=== PATIENT | male | born 1955 | race Caucasian/White ===

== ENCOUNTER 2024-03-13 00:34 | Emergency (ER) | payer MEDICARE, SELFPAY ==
--- NOTE | ~2024-03-13 | XR_ITS ---
EXAMINATION: XR foot RT min 3V DATE: 03/13/2024 00:58 INDICATION: Right foot injury. TECHNIQUE: 4 views of right foot were obtained. COMPARISON: None. FINDINGS: Alignment is normal. No fracture. There is mild osteoarthritis of first metatarsophalangeal joint and some of the interphalangeal joints and talonavicular joint. There are enthesophytes at the posterior and plantar aspects of calcaneal tuberosity. No radiopaque foreign body. IMPRESSION: 1. Mild polyarticular osteoarthritis. Reviewed, dictated and finalized at location A.
[2024-03-13 00:41] VITALS: PULSE 93; RESP 18; TEMP 36.1; O2SAT 100
--- NOTE | 2024-03-13 00:41 | ED.GENADULT ---
HPI - General Adult General Chief complaint: Extremity Injury, Lower Stated complaint: foot pain Time Seen by Provider: 03/13/24 00:41 Source: patient Mode of arrival: ambulatory Limitations: no limitations History of Present Illness HPI narrative: patient was in his garage did dropped a knife on the top of his right foot 5 or 6 days ago. And then he went to see his doctor in [facility] 2 days later got put on antibiotic with 500 mg 3 times a day but does not remember the name of the antibiotic. Patient said he has been eating and drinking fine without any fever cough runny nose sore throat pain elsewhere or other swelling elsewhere. He denies any other bleeding or bruising problems walking talking seeing or hearing or any other complaints. Related Data Allergies Allergy/AdvReac Type Severity Reaction Status Date / Time buspirone [From BuSpar] Allergy Unknown Verified 03/13/24 01:07 Review of Systems Review of Systems: All systems reviewed & are unremarkable except as noted in HPI and below Exam Narrative: White male patient with no apparent distress.? Head normocephalic, atraumatic.? Eyes conjunctiva pink sclera nonicteric.? Extraocular movements are intact.? Ears externally normal.? Oropharynx is clear with moist mucous membranes without exudates.? Neck is supple nontender no lymphadenopathy.? Back is nontender.? Lungs are clear.? Heart is regular rate and rhythm without murmurs gallops or rubs.? Chest wall nontender. Abdomen is soft and nontender no hepatosplenomegaly or masses no CVA tenderness no abdominal bruits.? Extremities : Right foot has a well-healed scab over the dorsum aspect of his foot overlying the metatarsal area 4th or 5th with the erythema surrounding the scab mild tenderness and mild swelling. He has full range of motion of his foot and ankle. DP and PT pulses are +2 bilaterally.? Skin is warm and dry without rashes or lesions.? Neurological patient is alert and oriented x4.? Motor and sensory grossly intact.? Gait is normal. Course Vital Signs Vital signs: Vital Signs Temperature 36.1 C L 03/13/24 00:41 Pulse Rate 93 03/13/24 00:41 Respiratory Rate 18 03/13/24 00:41 Pulse Oximetry 100 03/13/24 00:41 Oxygen Delivery Room Air 03/13/24 00:41 Temperature 36.1 C L 03/13/24 00:41 Pulse Rate 65 03/13/24 03:32 Respiratory Rate 18 03/13/24 03:32 Blood Pressure 98/62 L 03/13/24 03:32 Pulse Oximetry 100 03/13/24 03:32 Oxygen Delivery Room Air 03/13/24 03:32 Medical Decision Making MDM Narrative Medical decision making narrative: Patient was placed in Room # Six History and physical was performed. X-ray per radiologist showed no fracture mild soft tissue swelling over the metatarsals Independent Historian: patient External Source Review: Differential Dx includes but not limited to: cellulitis abscess infection the bone osteomyelitis Medications were Reviewed: patient is poor historian can not remember the name of the antibiotic he is taking Independently Interpreted by me: Meds, treatment, ED course: Rocephin 1 g IM Social Situation Impacting Patients Care: Shared decision Making: evaluation was discussed all questions were asked and answered patient agreed with the plan. You be started on Levaquin 500 daily for the next 7 days and continue his other antibiotic and follow up with his primary care provider on Friday in 2 days for recheck. dist a office foot until he sees keep it elevated. DISCHARGE DIAGNOSIS: Cellulitis right foot DISPOSITION: discharge home CONDITION AT DISCHARGE: stable Vital Signs Vital Signs: Vital Signs Temperature 36.1 C L 03/13/24 00:41 Pulse Rate 93 03/13/24 00:41 Respiratory Rate 18 03/13/24 00:41 Pulse Oximetry 100 03/13/24 00:41 Oxygen Delivery Room Air 03/13/24 00:41 Temperature 36.1 C L 03/13/24 00:41 Pulse Rate 65 03/13/24 03:32 Respiratory Rate 1
[2024-03-13 00:52] VITALS: BP 124/111
[2024-03-13] MEDS: cefTRIAXone 1 GM, LIDOCAINE HCL 1% LOCAL INJ 2.1 ML IM (02:39)
[2024-03-13 03:32] VITALS: BP 98/62; PULSE 65; RESP 18; O2SAT 100
== END 2024-03-13 03:04 | disposition home or self-care (01) ==
PROVIDERS: Emergency Provider Emergency Medicine
DX: L03.115 Cellulitis of right lower limb (principal)
CPT/HCPCS: 73630; 96372; 99283; J0696; J2003

== ENCOUNTER 2024-04-17 17:54 | Emergency (ER) | payer MEDICARE, SELFPAY ==
[2024-04-17 17:54] VITALS: BP 152/108; PULSE 92; RESP 18; TEMP 35.6; O2SAT 96
--- NOTE | 2024-04-17 18:13 | ED.SKABFB ---
HPI - Skin/Abscess/Foreign Bdy General Chief complaint: Skin/Abscess/Foreign Body Stated complaint: facial rash Source: patient Mode of arrival: ambulatory Limitations: no limitations History of Present Illness HPI narrative: this is a 68-year-old male with a history of heart disease and coronary artery disease recently discharged from the hospital for TIA and is currently on blood thinners, developed a vesicular rash on erythematous base on the left side of his lower face not involving the the left eye, mainly in the left nasal labial fold. Does have a headache with some no fever chills no nausea vomiting no chest pain no shortness of breath. complaint: rash Onset (ago): day(s) Location: face Severity: moderate Severity scale (1-10): 8 Related Data Home Medications Medication Instructions Recorded Confirmed atorvastatin 10 mg tablet 10 mg PO DAILY 04/17/24 04/17/24 clopidogrel 75 mg tablet 75 mg PO DAILY 04/17/24 04/17/24 Allergies Allergy/AdvReac Type Severity Reaction Status Date / Time buspirone [From BuSpar] Allergy Unknown Verified 04/17/24 18:02 Review of Systems Review of Systems: All systems reviewed & are unremarkable except as noted in HPI and below PMFSH Past Medical History Medical History CAD (coronary artery disease) TIA (transient ischemic attack) Exam Const: General: healthy appearing Nutritional Appearance: well nourished Orientation/consciousness: patient oriented x3 Limitations: no limitations HENMT: Head: normal to inspection Eyes: Conjunctivae: conjunctivae normal Pupils: Equal, round and reactive pupils present EOM: EOMs intact bilaterally Direct Ophthalmoscopy: no photophobia Neck: Neck: normal visual inspection, no lymphadenopathy and no meningeal signs Chest: Chest palpation & inspection: normal inspection of the chest Resp: Effort & Inspection: normal respiratory effort Auscultation: clear to auscultation bilaterally Cardio: Rate: regular rate GI: Auscultation: normal bowel sounds Skin: Other: erythematous rash with vesicles on the left nasal labial fold Neuro: General: patient oriented x3 and moves all extremities Course Course Emergency Course: patient received a dose of 400mg acyclovir will send prescriptions to patient's local pharmacy advised follow-up with his primary care physician. Vital Signs Vital signs: Vital Signs Temperature 35.6 C L 04/17/24 17:54 Pulse Rate 92 04/17/24 17:54 Respiratory Rate 18 04/17/24 17:54 Blood Pressure 152/108 H 04/17/24 17:54 Pulse Oximetry 96 04/17/24 17:54 Oxygen Delivery Room Air 04/17/24 17:54 Temperature 35.6 C L 04/17/24 17:54 Pulse Rate 92 04/17/24 17:54 Respiratory Rate 18 04/17/24 17:54 Blood Pressure 152/108 H 04/17/24 17:54 Pulse Oximetry 96 04/17/24 17:54 Oxygen Delivery Room Air 04/17/24 17:54 Critical Care Time Critical Care Time Critical Care Time: No Discharge Plan Discharge Clinical Impression: Herpes zoster Patient Disposition: Home, Self-Care Condition: Stable Instructions: Antibiotic Form, Shingles (ED) Additional Instructions: Advised patient to take medication as prescribed and follow up primary within 1 week further evaluation and treatment. Prescriptions: New acyclovir 800 mg tablet 800 mg PO QID 7 Days Qty: 28 0RF oxycodone-acetaminophen [Percocet] 5-325 mg tablet 1 tablet PO Q6H PRN (Reason: pain) Qty: 14 0RF No Action atorvastatin 10 mg tablet 10 mg PO DAILY clopidogrel 75 mg tablet 75 mg PO DAILY Follow-up/Referrals: UNKNOWN,DOCTOR [Primary Care Provider] - Time of Disposition: 18:18
[2024-04-17] MEDS: ACYCLOVIR 200 MG CAPSULE 400 MG PO (18:14)
== END 2024-04-17 18:20 | disposition home or self-care (01) ==
PROVIDERS: Emergency Provider Emergency Medicine
DX: B02.9 Zoster without complications (principal); I25.10 Atherosclerotic heart disease of native coronary artery without angina pectoris; Z86.73 Personal history of transient ischemic attack (TIA), and cerebral infarction without residual deficits
CPT/HCPCS: 99283; A9270

== ENCOUNTER 2024-04-21 23:06 | Emergency (ER) | payer MEDICARE, SELFPAY ==
[2024-04-21 23:11] VITALS: BP 131/104; PULSE 78; RESP 18; TEMP 36.2; O2SAT 95
--- NOTE | 2024-04-21 23:11 | ED.GIBLEED ---
HPI - GI Bleed General Chief complaint: GI Bleed Stated complaint: bleeding from rectum Time Seen by Provider: 04/21/24 23:09 Source: patient Mode of arrival: ambulatory Limitations: no limitations History of Present Illness HPI Narrative: 68-year-old male with a history of CAD( recent negative cardiac catheterization on two different occasions), CVA with TIA, status post loop recorder, dyslipidemia, gout, BPH, negative colonoscopy a few years ago presents to the ED with a few weeks history of -- bright red blood per rectum. The patient had been taken aspirin and Plavix which he discontinued a few weeks ago. no prior history of GI bleed -- brown liquid stools off and on no nausea or vomiting. No hematemesis or melena. No abdominal pain. recent herpes eruptions on the face which were diagnosed as zoster for which he is on acyclovir. MD complaint: blood on toilet paper Onset (ago): week(s) Relieving factors: none Exacerbating factors: none Associated symptoms: denies other symptoms and other ( loose stools) Treatments Prior to Arrival: none Related Data Home Medications Medication Instructions Recorded Confirmed atorvastatin 10 mg tablet (Lipitor) 10 mg PO DAILY 04/17/24 04/22/24 clopidogrel 75 mg tablet (Plavix) 75 mg PO DAILY 04/17/24 04/22/24 Men's One Daily 1 tablet PO DAILY 04/22/24 04/22/24 Vitamin B-12 500 mg PO DAILY 04/22/24 04/22/24 allopurinol 300 mg tablet 300 mg PO EVERY OTHER DAY 04/22/24 04/22/24 aspirin 81 mg tablet,delayed 81 mg PO DAILY 04/22/24 04/22/24 release brimonidine 0.2 % eye drops 1 drp EACH EYE DAILY 04/22/24 04/22/24 gabapentin 300 mg capsule 300 mg PO BID 04/22/24 04/22/24 (Neurontin) gabapentin 300 mg capsule 600 mg PO HS 04/22/24 04/22/24 (Neurontin) lisinopril 40 mg tablet 40 mg PO DAILY 04/22/24 04/22/24 magnesium 250 mg tablet 250 mg PO DAILY 04/22/24 04/22/24 potassium 99 mg PO DAILY 04/22/24 04/22/24 prazosin 1 mg capsule 1 mg PO HS 04/22/24 04/22/24 prazosin 2 mg capsule 2 mg PO HS 04/22/24 04/22/24 tamsulosin 0.4 mg capsule 0.4 mg PO DAILY 04/22/24 04/22/24 timolol maleate 0.25 % eye drops 1 drp EACH EYE DAILY 04/22/24 04/22/24 Allergies Allergy/AdvReac Type Severity Reaction Status Date / Time buspirone [From BuSpar] Allergy Unknown Verified 04/21/24 23:57 terbinafine [From Lamisil] Allergy Swelling Verified 04/21/24 23:57 Review of Systems Review of Systems: All systems reviewed & are unremarkable except as noted in HPI and below Constitutional: Constitutional: Reports as per HPI and Reports no additional constitutional complaints Eyes: Eyes: Reports as per HPI and Reports no additional eye complaints ENT: Reports system reviewed and no additional complaints, except as documented and Reports as per HPI Cardiovascular: Cardiovascular: Reports as per HPI and Reports no additional cardiovascular complaints Respiratory: Respiratory: Reports as per HPI and Reports no additional respiratory complaints Gastrointestinal: Gastrointestinal: Reports as per HPI and Reports no additional gastrointestinal complaints Comments: bright red blood per rectum. blood is present on the wipes. Genitourinary: Genitourinary: Reports no additional male genitourinary complaints Musculoskeletal: Musculoskeletal: Reports no additional musculoskeletal complaints and Reports as per HPI Integumentary/Breasts: Skin/Breast: Reports system reviewed and no additional complaints, except as docu and Reports as per HPI Neurologic: Reports system reviewed and no additional complaints, except as documented and Reports as per HPI Psychiatric: Psychiatric: Reports no additional psychiatric complaints and Reports as per HPI Endocrine: Endocrine: Reports no additional endocrine complaints and Reports as per HPI Hematologic/Lymphatic: Hematologic/Lymphatic: Reports no additional hematologic/lymphatic complaints and Reports as per HPI Allergic/Immunologic: Allergic/Immunologic: Reports no additional allergic/immunologic complaints and Reports as per HPI PMFSH Past Medical History Medical History CAD (coronary artery disease) TIA (transient ischemic attack) Social History Social History (Updated 04/21/24 @ 23:52 by Amor Barragan MD) Social History: Light smoker. No history of alcohol use. Exam Narrative: Blood pressure 131/104. Const: General: no acute distress Nutritional Appearance: well nourished Orientation/consciousness: patient oriented x3 Limitations: no limitations HENMT: Head: normal to inspection Ears: external ears normal Face/Nose/Sinus: Normal external nose present Mouth: Yes Normal oral and palatal mucosa present Throat: posterior oropharynx normal Eyes: Conjunctivae: conjunctivae normal Pupils: Equal, round and reactive pupils present EOM: EOMs intact bilaterally Direct Ophthalmoscopy: no photophobia Neck: Neck: normal visual inspection and no lymphadenopathy Chest: Chest palpation & inspection: normal inspection of the chest Resp: Effort & Inspection: normal respiratory effort Auscultation: clear to auscultation bilaterally Cardio: Rate: regular rate Rhythm: regular rhythm GI: GI Palp: Yes Soft to palpation Auscultation: normal bowel sounds Rectal Exam: normal sphincter tone and hemorrhoids Other: No tenderness/ rigidity / rebound. : General: Yes no CVA tenderness Back/Spine/Pelvis: Back: no CVA tenderness Skin: General skin exam: normal color Neuro: General: patient oriented x3, moves all extremities, no meningeal signs, no focal motor deficits and CN's II-XI intact bilaterally Cranial nerves: Yes Nystagmus not present Speech: normal speech Extrem: General: normal to inspection Psych: Mental Status: mental status grossly normal Affect: normal affect Attitude: cooperative Course Course Emergency Course: Bright red blood per rectum-- patient has an H&H of 14.5/41.7. Platelet count is 148 1000. Patient is noted to have a normal PT PTT. Patient is not on any antithrombotics on anticoagulants. He had been on aspirin and Plavix which have been discontinued. Patient is noted to have external hemorrhoids and these appear to be the source of bleeding. He had a colonoscopy few years ago which did not show any evidence of malignancy as per patient Vital Signs Vital signs: Vital Signs Temperature 36.2 C L 04/21/24 23:11 Pulse Rate 78 04/21/24 23:11 Respiratory Rate 18 04/21/24 23:11 Blood Pressure 131/104 H 04/21/24 23:11 Pulse Oximetry 95 04/21/24 23:11 Oxygen Delivery Room Air 04/21/24 23:11 Temperature 36.2 C L 04/21/24 23:11 Pulse Rate 78 04/21/24 23:11 Respiratory Rate 18 04/21/24 23:11 Blood Pressure 131/104 H 04/21/24 23:11 Pulse Oximetry 95 11/20/24 23:11 Oxygen Delivery Room Air 04/21/24 23:11 MDM - GI Bleed MDM Narrative Medical decision making narrative: bleeding per rectum hemorrhoids Differential Diagnosis Differential diagnosis: Likely hemorrhoids and anal fissure Medical Records Attestation: I reviewed the patient's medical records. Lab Data Attestation: I reviewed the patient's lab results. 04/22/24 00:04 04/22/24 00:04 Labs: Lab Results 04/22/24 Range/Units 00:04 WBC 6.6 (4.8-10.8) K/mm3 RBC 4.48 L (4.70-6.10) M/mm3 Hgb 14.5 (12.4-15.3) g/dL Hct 41.7 (37.0-46.0) % MCV 93.1 (78.0-102.0) fL MCH 32.4 H (27.0-31.0) pg MCHC 34.8 (32-36) g/dL RDW 11.8 (11.6-14.4) % Plt Count 148 L (150-420) K/mm3 MPV 9.5 (8.7-11.0) fl Immature Gran % (Auto) 0.3 H (0.0-0.0) % Neut % (Auto) 63.2 (50.0-70.0) % Lymph % (Auto) 24.2 (18.0-42.0) % [place] % (Auto) 8.5 (2.0-11.0) % Eos % (Auto) 3.0 (1.0-6.0) % Baso % (Auto) 0.8 (0.0-1.0) % Lymph # (Auto) 1.59 (1.10-4.50) K/mm3 [place] # (Auto) 0.56 (0.10-0.90) K/mm3 Eos # (Auto) 0.20 (0.02-0.50) K/mm3 Baso # (Auto) 0.05 (0.00-0.10) K/mm3 Abs Immat Gran (auto) 0.02 H (0.00-0.00) K/mm3 Absolute Neuts (auto) 4.15 (1.70-7.20) K/mm3 Absolute Nucleated RBC 0.00 (0.00-0.00) K/mm3 Nucleated RBC % 0.0 (0-0.0) % % Immature Plt Fraction 2.2 (1.0-7.0) % PT 11.0 (9.50-12.1) Seconds INR 1.0 APTT 29.1 (23.9-30.70) Sec Sodium 142 (136-145) mmol/L Potassium 4.1 (3.5-5.1) mmol/L Chloride 103 (98-108) mmol/L Carbon Dioxide 30 (21-32) mmol/L Anion Gap 9 (4-12) mmol/L BUN 20 H (7-18) mg/dL Creatinine 0.95 (0.70-1.30) mg/dL Estim Creat Clear Calc Not Reportable Estimated GFR > 60 (59 - ) Glucose 102 H (70-99) mg/dL Calculated Osmolality 296 H (285-295) mOsm/kg Lactic Acid 0.5 (0.4-2.0) mmol/L Calcium 9.1 (8.5-10.1) mg/dL Total Bilirubin 0.4 (0.00-1.00) mg/dL AST 20 (15-37) U/L ALT 37 (16-63) U/L Alkaline Phosphatase 82 (46-116) U/L Troponin I 6.4 (0.00-60.4) ng/L NT-Pro-B Natriuret Pep 57 (0-125) pg/mL Total Protein 6.9 (6.4-8.2) g/dL Albumin 3.7 (3.4-5.0) g/dL Lipase 33 (16-77) U/L Discharge Plan Discharge Clinical Impression: Bright red rectal bleeding Hemorrhoids Qualifiers: Hemorrhoid type: third degree Qualified Code(s): K64.2 - Third degree hemorrhoids Patient Disposition: Home, Self-Care Condition: Stable Instructions: Antibiotic Form, Hemorrhoids (DC) Patient Language: Korean Prescriptions: No Action atorvastatin [Lipitor] 10 mg tablet 10 mg PO DAILY clopidogrel [Plavix] 75 mg tablet 75 mg PO DAILY acyclovir 800 mg tablet 800 mg PO QID 7 Days Qty: 28 0RF oxycodone-acetaminophen [Percocet] 5-325 mg tablet 1 tablet PO Q6H PRN (Reason: pain) Qty: 14 0RF prazosin 1 mg capsule 1 mg PO HS aspirin [Adult Aspirin EC Low Strength] 81 mg Tablet,Delayed Release (Dr/Ec) 81 mg PO DAILY tamsulosin 0.4 mg capsule 0.4 mg PO DAILY timolol maleate 0.25 % drops 1 drp EACH EYE DAILY brimonidine 0.2 % drops 1 drp EACH EYE DAILY gabapentin [Neurontin] 300 mg capsule 600 mg PO HS gabapentin [Neurontin] 300 mg capsule 300 mg PO BID Rx Instructions: take one capsule in the morning and one at noon allopurinol 300 mg tablet 300 mg PO EVERY OTHER DAY magnesium 250 mg Tablet 250 mg PO DAILY lisinopril 40 mg tablet 40 mg PO DAILY prazosin 2 mg capsule 2 mg PO HS Men's One Daily 1 tablet PO DAILY Vitamin B-12 500 mg PO DAILY potassium capsule 99 mg PO DAILY Follow-up/Referrals: UNKNOWN,DOCTOR [Primary Care Provider] - Time of Disposition: 00:35
--- NOTE | 2024-04-21 23:40 | PC.NURSE ---
patient resting on stretcher with visitor at bedside. offered warm blanket however patient declined. RN monitoring. call light within reach.
[2024-04-22 00:09] LABS: Basophils Absolute Auto 0.05 K/mm3 (0.00-0.10); Basophils Percent Auto 0.8 % (0.0-1.0); Hematocrit 41.7 % (37.0-46.0); Hemoglobin 14.5 g/dL (12.4-15.3); Immature Granulocyte Absolute 0.02 K/mm3 (0.00-0.00); Immature Granulocyte Percent A 0.3 % (0.0-0.0); Immature Platelet Fraction Pct 2.2 % (1.0-7.0); Lymphocytes Absolute Auto 1.59 K/mm3 (1.10-4.50); Lymphocytes Percent Auto 24.2 % (18.0-42.0); Mean Corpuscular HGB Conc 34.8 g/dL (32-36); Mean Corpuscular Hemoglobin 32.4 pg (27.0-31.0); Mean Corpuscular Volume 93.1 fL (78.0-102.0); Mean Platelet Volume 9.5 fl (8.7-11.0); Monocytes Absolute Auto 0.56 K/mm3 (0.10-0.90); Monocytes Percent Auto 8.5 % (2.0-11.0); Neutrophils Absolute Auto 4.15 K/mm3 (1.70-7.20); Neutrophils Percent Auto 63.2 % (50.0-70.0); Platelet Count Result 148 K/mm3 (150-420); Red Blood Count 4.48 M/mm3 (4.70-6.10); Red Cell Distribution Width 11.8 % (11.6-14.4); White Blood Count 6.6 K/mm3 (4.8-10.8)
[2024-04-22 00:20] LABS: Partial Thromboplastin Time 29.1 Sec (23.9-30.70)
[2024-04-22 00:23] LABS: Lactic Acid Reflex 0.5 mmol/L (0.4-2.0)
[2024-04-22 00:27] LABS: Alanine Aminotransferase 37 U/L (16-63); Albumin Level 3.7 g/dL (3.4-5.0); Alkaline Phosphatase 82 U/L (46-116); Anion Gap 9 mmol/L (4-12); Aspartate Amino Transferase 20 U/L (15-37); Bilirubin,Total 0.4 mg/dL (0.00-1.00); Blood Urea Nitrogen 20 mg/dL (7-18); Calcium 9.1 mg/dL (8.5-10.1); Carbon Dioxide 30 mmol/L (21-32); Chloride 103 mmol/L (98-108); Estimated Glomerular Filt Rate > 60; Glucose 102 mg/dL (70-99); Lipase 33 U/L (16-77); NT Pro B Type Natriuretic Pept 57 pg/mL (0-125); Osmolality Calculated 296 mOsm/kg (285-295); Potassium 4.1 mmol/L (3.5-5.1); Sodium 142 mmol/L (136-145); Total Protein 6.9 g/dL (6.4-8.2); Troponin I 6.4 ng/L (0.00-60.4)
--- NOTE | 2024-04-22 00:51 | PC.NURSE ---
SUPPLIES GIVEN TO COLLECT STOOL SAMPLE AT HOME
[2024-04-22 00:55] VITALS: TEMP 35.9
[2024-04-22 00:56] VITALS: BP 125/88; PULSE 64; RESP 18; O2SAT 96
== END 2024-04-22 00:56 | disposition home or self-care (01) ==
PROVIDERS: Emergency Provider Internal Medicine Critical Care Medicine
DX: K64.2 Third degree hemorrhoids (principal); I25.10 Atherosclerotic heart disease of native coronary artery without angina pectoris; F17.200 Nicotine dependence, unspecified, uncomplicated; Z86.73 Personal history of transient ischemic attack (TIA), and cerebral infarction without residual deficits; E78.5 Hyperlipidemia, unspecified; Z79.01 Long term (current) use of anticoagulants; Z79.899 Other long term (current) drug therapy; Z79.82 Long term (current) use of aspirin
CPT/HCPCS: 36415; 80053; 83605; 83690; 83880; 84484; 85025; 85055; 85610; 85730; 99284

== ENCOUNTER 2024-04-23 17:18 | Emergency (ER) | payer MEDICARE, SELFPAY ==
--- NOTE | ~2024-04-23 | CT_ITS ---
EXAMINATION: CT abdomen pelvis w con DATE: 04/23/2024 18:45 INDICATION: Left lower quadrant abdominal pain. TECHNIQUE: Computed tomography (CT) of the abdomen and pelvis was performed with 100 mL Omnipaque 350 intravenous contrast. Automated exposure control and iterative reconstruction technique were employe d. The dose-length product was 977.76 mGy-cm. COMPARISON: None. FINDINGS: The visualized portions of the lung bases are clear without pneumonia or pleural effusion. The heart size is normal. No pericardial effusion. There are coronary artery calcifications. The live r, gallbladder, spleen, pancreas, and adrenal glands and kidneys are normal. There are scattered dive rticula in the colon. There is fat stranding around a diverticulum of the descending colon with wall thickening, consistent with diverticulitis. There are no dilated loops of bowel. The appendix is norm al. There are no pathologically enlarged lymph nodes. There is no free intraperitoneal fluid. There i s severe lumbar spondylosis. IMPRESSION: 1. Acute diverticulitis of descending colon. No perforation or abscess. Reviewed, dictated and finalized at location A. [employer]
[2024-04-23 17:19] VITALS: BP 177/96; PULSE 87; RESP 20; TEMP 36.6; O2SAT 99
--- NOTE | 2024-04-23 17:28 | ED_ITS ---
HPI - General Adult General Chief complaint: Abdominal Pain Stated complaint: left side ab. pain Time Seen by Provider: 04/23/24 17:27 Source: patient and family Mode of arrival: ambulatory Limitations: no limitations History of Present Illness HPI narrative: 68-year-old white male with history of diverticulitis 5 years ago complains of 2 days of left lower quadrant pain that is worse than it was 2 days ago better when he lays still worse when he is walking around it was a 10/10. Now it is a 7/10 since he is lying still. He has had some diarrhea 1 or 2 stools in last 24 hours he is seen here 2 days ago with hemorrhoids and rectal bleeding on blood thinners was told to stop those which he did. Since then he has not seen any blood in his stool. Denies any constipation. He says the left lower quadrant pain is stabbing and burning denies any nausea or vomiting or any other pain shortness of breath cough fever rash or itching dizziness or lightheadedness weakness or numbness. 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 Denies any muscle aches numbness or weakness other bleeding or bruising fever problems voiding eating or drinking denies any chest pain cough fever sore throat runny nose or any other complaints. Related Data Home Medications Medication Instructions Recorded Confirmed atorvastatin 10 mg tablet (Lipitor) 10 mg PO DAILY 04/17/24 04/23/24 clopidogrel 75 mg tablet (Plavix) 75 mg PO DAILY 04/17/24 04/23/24 Men's One Daily 1 tablet PO DAILY 04/22/24 04/23/24 Vitamin B-12 500 mg PO DAILY 04/22/24 04/23/24 allopurinol 300 mg tablet 300 mg PO EVERY OTHER DAY 04/22/24 04/23/24 aspirin 81 mg tablet,delayed 81 mg PO DAILY 04/22/24 04/23/24 release brimonidine 0.2 % eye drops 1 drp EACH EYE DAILY 04/22/24 04/23/24 gabapentin 300 mg capsule 300 mg PO BID 04/22/24 04/23/24 (Neurontin) gabapentin 300 mg capsule 600 mg PO HS 04/22/24 04/23/24 (Neurontin) lisinopril 40 mg tablet 40 mg PO DAILY 04/22/24 04/23/24 magnesium 250 mg tablet 250 mg PO DAILY 04/22/24 04/23/24 potassium 99 mg PO DAILY 04/22/24 04/23/24 prazosin 1 mg capsule 1 mg PO HS 04/22/24 04/23/24 prazosin 2 mg capsule 2 mg PO HS 04/22/24 04/23/24 tamsulosin 0.4 mg capsule 0.4 mg PO DAILY 04/22/24 04/23/24 timolol maleate 0.25 % eye drops 1 drp EACH EYE DAILY 04/22/24 04/23/24 Allergies Allergy/AdvReac Type Severity Reaction Status Date / Time buspirone [From BuSpar] Allergy Unknown Verified 04/21/24 23:57 poison sumac extract Allergy Hives Verified 04/23/24 17:49 terbinafine [From Lamisil] Allergy Swelling Verified 04/21/24 23:57 Review of Systems Review of Systems: All systems reviewed & are unremarkable except as noted in HPI and below PMFSH Past Medical History Medical History CAD (coronary artery disease) TIA (transient ischemic attack) Social History Social History Social History: Light smoker. No history of alcohol use. Comments History of diverticulitis 5 years ago Exam Narrative: White male patient with mild apparent distress.? Head normocephalic, atraumatic.? Eyes conjunctiva pink sclera nonicteric.? Extraocular movements are intact.? Ears externally normal.? Oropharynx is clear with moist mucous membranes without exudates.? Neck is supple nontender no lymphadenopathy.? Back is nontender.? no CVA tenderness. Lungs are clear.? Heart is regular rate and rhythm without murmurs gallops or rubs.? Chest wall nontender. Abdomen is soft with positive bowel sounds. He has guarding in the left lower quadrant with mild rebound and mild tenderness without any masses or hepatosplenomegaly or abdominal bruits.? Extremities no cyanosis clubbing or edema.? Skin is warm and dry without rashes or lesions.? Neurological patient is alert and oriented x4.? Motor and sensory grossly intact.? Gait is normal. Course Vital Signs Vital signs: Vital Signs Temperature 36.6 C 04/23/24 17:19 Pulse Rate 87 04/23/24 17:19 Respiratory Rate 20 04/23/24 17:19 Blood Pressure 177/96 H 04/23/24 17:19 Pulse Oximetry 99 04/23/24 17:19 Oxygen Delivery Room Air 04/23/24 17:19 Temperature 36.6 C 04/23/24 17:19 Pulse Rate 87 04/23/24 17:19 Respiratory Rate 20 04/23/24 17:19 Blood Pressure 177/96 H 04/23/24 17:19 Pulse Oximetry 99 04/23/24 17:19 Oxygen Delivery Room Air 04/23/24 17:19 Medical Decision Making MDM Narrative Medical decision making narrative: ?Patient placed in room: 1 with his ? History and physical was performed. Independent Historian: External Source Review: ED visits from this week were reviewed Differential Dx includes but not limited to: diverticulitis bowel obstruction inflammatory bowel disease electrolyte imbalance anemia urinary tract infection Medications were Reviewed: home meds reviewed Medications given: normal saline 1 L given. Patient refused morphine and Zofran. he was given Bactrim DS p.o. Independently Interpreted by me: Labs independently interpreted by me Shared decision Making: evaluation was discussed with patient all questions were asked and answered patient agreed with plan. He would take Bactrim DS twice a day for 7 days follow up with his primary care provider. Return if you get worse or develops any new symptoms increase his fluids by mouth take Tylenol and/or ibuprofen as needed for pain. Social Situation Impacting Patients Care: DISCHARGE DIAGNOSIS: Acute uncomplicated diverticulitis DISPOSITION : discharge home CONDITION AT DISCHARGE: stable Vital Signs Vital Signs: Vital Signs Temperature 36.6 C 04/23/24 17:19 Pulse Rate 87 04/23/24 17:19 Respiratory Rate 20 04/23/24 17:19 Blood Pressure 177/96 H 04/23/24 17:19 Pulse Oximetry 99 04/23/24 17:19 Oxygen Delivery Room Air 04/23/24 17:19 Temperature 36.6 C 04/23/24 17:19 Pulse Rate 87 04/23/24 17:19 Respiratory Rate 20 04/23/24 17:19 Blood Pressure 177/96 H 04/23/24 17:19 Pulse Oximetry 99 04/23/24 17:19 Oxygen Delivery Room Air 04/23/24 17:19 Lab Data 04/23/24 18:30 04/23/24 18:30 Labs: Lab Results 04/23/24 04/23/24 Range/Units 18:30 18:35 WBC 11.6 H (4.8-10.8) K/mm3 RBC 4.64 L (4.70-6.10) M/mm3 Hgb 15.2 (12.4-15.3) g/dL Hct 43.5 (37.0-46.0) % MCV 93.8 (78.0-102.0) fL MCH 32.8 H (27.0-31.0) pg MCHC 34.9 (32-36) g/dL RDW 12.1 (11.6-14.4) % Plt Count 166 (150-420) K/mm3 MPV 9.4 (8.7-11.0) fl Immature Gran % (Auto) 0.4 H (0.0-0.0) % Neut % (Auto) 77.0 H (50.0-70.0) % Lymph % (Auto) 12.2 L (18.0-42.0) % [place] % (Auto) 8.3 (2.0-11.0) % Eos % (Auto) 1.7 (1.0-6.0) % Baso % (Auto) 0.4 (0.0-1.0) % Lymph # (Auto) 1.41 (1.10-4.50) K/mm3 [place] # (Auto) 0.96 H (0.10-0.90) K/mm3 Eos # (Auto) 0.20 (0.02-0.50) K/mm3 Baso # (Auto) 0.05 (0.00-0.10) K/mm3 Abs Immat Gran (auto) 0.05 H (0.00-0.00) K/mm3 Absolute Neuts (auto) 8.91 H (1.70-7.20) K/mm3 Absolute Nucleated RBC 0.00 (0.00-0.00) K/mm3 Nucleated RBC % 0.0 (0-0.0) % Sodium 140 (136-145) mmol/L Potassium 4.4 (3.5-5.1) mmol/L Chloride 101 (98-108) mmol/L Carbon Dioxide 32 (21-32) mmol/L Anion Gap 7 (4-12) mmol/L BUN 18 (7-18) mg/dL Creatinine 0.96 (0.70-1.30) mg/dL Estim Creat Clear Calc 81 ml/min Estimated GFR > 60 (59 - ) Glucose 92 (70-99) mg/dL Calculated Osmolality 291 (285-295) mOsm/kg Lactic Acid 0.8 (0.4-2.0) mmol/L Calcium 9.3 (8.5-10.1) mg/dL Total Bilirubin 0.6 (0.00-1.00) mg/dL AST 14 L (15-37) U/L ALT 36 (16-63) U/L Alkaline Phosphatase 91 (46-116) U/L Total Protein 7.4 (6.4-8.2) g/dL Albumin 3.9 (3.4-5.0) g/dL Lipase 31 (16-77) U/L Urine Color Yellow (Yellow) Urine Appearance Clear (Clear) Urine pH 6.0 (5.0-8.0) Ur Specific [place] 1.025 H (1.010-1.020) Urine Protein Negative (Negative) Urine Glucose (UA) Negative (Negative) Urine Ketones Trace H (Negative) Ur Blood (Man) Negative (Negative) Urine Nitrate Negative (Negative) Urine Bilirubin Negative (Negative) Urine Urobilinogen 0.2 (0.2-1.0) mg/dL Leukocyte Esterase Rfl Negative (Negative) TOMER/UL Discharge Plan Discharge Clinical Impression: Acute diverticulitis Patient Disposition: Home, Self-Care Condition: Stable Instructions: Antibiotic Form, Diverticulitis (ED) Additional Instructions: Bactrim ds twice a day for 7 days. Tylenol 500 m tablets 4 times a day as needed for pain and/or ibuprofen 200 m or 3 tablets 3 times a day as needed. Follow-up with your primary care provider next week. Return if you get worse or develops any new symptoms. Prescriptions: New sulfamethoxazole-trimethoprim [Bactrim DS] 800-160 mg tablet 1 tablet PO Q12H 7 Days Qty: 14 0RF No Action atorvastatin [Lipitor] 10 mg tablet 10 mg PO DAILY clopidogrel [Plavix] 75 mg tablet 75 mg PO DAILY acyclovir 800 mg tablet 800 mg PO QID 7 Days Qty: 28 0RF prazosin 1 mg capsule 1 mg PO HS aspirin [Adult Aspirin EC Low Strength] 81 mg Tablet,Delayed Release (Dr/Ec) 81 mg PO DAILY tamsulosin 0.4 mg capsule 0.4 mg PO DAILY timolol maleate 0.25 % drops 1 drp EACH EYE DAILY brimonidine 0.2 % drops 1 drp EACH EYE DAILY gabapentin [Neurontin] 300 mg capsule 600 mg PO HS gabapentin [Neurontin] 300 mg capsule 300 mg PO BID Rx Instructions: take one capsule in the morning and one at noon allopurinol 300 mg tablet 300 mg PO EVERY OTHER DAY magnesium 250 mg Tablet 250 mg PO DAILY lisinopril 40 mg tablet 40 mg PO DAILY prazosin 2 mg capsule 2 mg PO HS Men's One Daily 1 tablet PO DAILY Vitamin B-12 500 mg PO DAILY potassium capsule 99 mg PO DAILY Follow-up/Referrals: UNKNOWN,DOCTOR [Primary Care Provider] - Time of Disposition: 19:40
[2024-04-23 18:33] LABS: Basophils Absolute Auto 0.05 K/mm3 (0.00-0.10); Basophils Percent Auto 0.4 % (0.0-1.0); Eosinophils Percent Auto 1.7 % (1.0-6.0); Hematocrit 43.5 % (37.0-46.0); Hemoglobin 15.2 g/dL (12.4-15.3); Immature Granulocyte Absolute 0.05 K/mm3 (0.00-0.00); Immature Granulocyte Percent A 0.4 % (0.0-0.0); Lymphocytes Absolute Auto 1.41 K/mm3 (1.10-4.50); Lymphocytes Percent Auto 12.2 % (18.0-42.0); Mean Corpuscular HGB Conc 34.9 g/dL (32-36); Mean Corpuscular Hemoglobin 32.8 pg (27.0-31.0); Mean Corpuscular Volume 93.8 fL (78.0-102.0); Mean Platelet Volume 9.4 fl (8.7-11.0); Monocytes Absolute Auto 0.96 K/mm3 (0.10-0.90); Monocytes Percent Auto 8.3 % (2.0-11.0); Neutrophils Absolute Auto 8.91 K/mm3 (1.70-7.20); Platelet Count Result 166 K/mm3 (150-420); Red Blood Count 4.64 M/mm3 (4.70-6.10); Red Cell Distribution Width 12.1 % (11.6-14.4); White Blood Count 11.6 K/mm3 (4.8-10.8)
[2024-04-23 18:41] LABS: Add Urine Microscopic? NO; Appearance Urine Clear (Clear); Bilirubin Urine Negative (Negative); Blood Urine Negative (Negative); Color Urine Yellow (Yellow); Glucose Urine UA Negative (Negative); Ketones Urine Trace (Negative); Leukocyte Esterase Ur Negative LEU/UL (Negative); Nitrate Urine Negative (Negative); Protein Urine Negative (Negative); Specific Grav Ur 1.025 (1.010-1.020); Urobilinogen Urine 0.2 mg/dL (0.2-1.0)
[2024-04-23 18:50] LABS: Alanine Aminotransferase 36 U/L (16-63); Albumin Level 3.9 g/dL (3.4-5.0); Alkaline Phosphatase 91 U/L (46-116); Anion Gap 7 mmol/L (4-12); Aspartate Amino Transferase 14 U/L (15-37); Bilirubin,Total 0.6 mg/dL (0.00-1.00); Blood Urea Nitrogen 18 mg/dL (7-18); Calcium 9.3 mg/dL (8.5-10.1); Carbon Dioxide 32 mmol/L (21-32); Chloride 101 mmol/L (98-108); Estimated CRCL calculation 81 ml/min; Estimated Glomerular Filt Rate > 60; Glucose 92 mg/dL (70-99); Lipase 31 U/L (16-77); Osmolality Calculated 291 mOsm/kg (285-295); Potassium 4.4 mmol/L (3.5-5.1); Sodium 140 mmol/L (136-145); Total Protein 7.4 g/dL (6.4-8.2)
[2024-04-23] MEDS: SODIUM CHLORIDE 0.9% IV 1,000 ML 999 ML IV CONT (18:51)
--- NOTE | 2024-04-23 18:53 | PC.NURSE ---
report to leta lopez
[2024-04-23 18:56] LABS: Lactic Acid Reflex 0.8 mmol/L (0.4-2.0)
[2024-04-23] MEDS: SULFAMETHOXAZOLE/TRIMETHOPRIM 800/160 MG DS TABLET 1 TAB PO (19:27)
[2024-04-23 19:45] VITALS: BP 168/98; PULSE 86; RESP 16; TEMP 36.6; O2SAT 100
--- NOTE | 2024-04-25 14:10 | PC.NURSE ---
PRELIMINARY BLOOD CULTURE: NO GROWTH TO DATE.
== END 2024-04-23 19:45 | disposition home or self-care (01) ==
PROVIDERS: Emergency Provider Emergency Medicine
DX: Z79.01 Long term (current) use of anticoagulants (principal); K57.92 Diverticulitis of intestine, part unspecified, without perforation or abscess without bleeding; I25.10 Atherosclerotic heart disease of native coronary artery without angina pectoris; F17.200 Nicotine dependence, unspecified, uncomplicated; Z86.73 Personal history of transient ischemic attack (TIA), and cerebral infarction without residual deficits; Z79.899 Other long term (current) drug therapy
CPT/HCPCS: 36415; 74177; 80053; 81003; 83605; 83690; 85025; 87040; 99284; A9270; J7030; Q9967

== ENCOUNTER 2024-05-28 17:14 | Emergency (ER) | payer MEDICARE, MEDICAID, SELFPAY ==
[2024-05-28] VITALS (8 sets, daily range): BP systolic 135–162; BP diastolic 87–103; PULSE 68–88; RESP 16–18; TEMP 36.6; O2SAT 94–97
--- NOTE | ~2024-05-28 | CT_ITS ---
CT abdomen pelvis w con Ordering provider: Mark Ugalde MD History: 68 years Male with . RLQ abdominal pain/ constipation x2 days . Comparison: April 23, 2024 Technique: CT abdomen and pelvis with IV and without oral contrast. Automated exposure control and it erative reconstruction technique were employed. The dose-length product was 976.26 mGy-cm. 100 mL Omn ipaque 350 was given IV. Findings: VISUALIZED LOWER CHEST: Normal. UPPER ABDOMINAL ORGANS: Liver: Normal. Gallbladder: Normal. Spleen: Normal. Stomach/duodenum: Normal. Pancreas: Normal. Adrenals: Normal. Kidneys: Normal. PELVIC ORGANS: The bladder is normal. BOWEL AND MESENTERY: Colon: No evidence of diverticulitis. Previously seen diverticulitis is the result. Possibility of mi nimal fat stranding in the area is not excluded. Normal appendix. Small Bowel: Normal. No obstruction. Peritoneum/mesentery: No free air or free fluid. No mesenteric lymphadenopathy. RETROPERITONEUM: Mild atheromatous disease of the abdominal aorta. No retroperitoneal lymphadenopat hy. MUSCULOSKELETAL: Superficial soft tissues: The superficial soft tissues are normal. Bones: Age appropriate degenerative changes of the spine. IMPRESSION: 1. No acute abdominal process with no evidence of appendicitis, diverticulitis or intestinal obstruc tion. Reviewed, dictated and finalized at location A. [employer] IMPRESSION: 1. No acute abdominal process with no evidence of appendicitis, diverticulitis or intestinal obstruction.
--- NOTE | 2024-05-28 18:18 | ED_ITS ---
HPI - General Adult General Chief complaint: Abdominal Pain Stated complaint: abdominal pain Time Seen by Provider: 05/28/24 18:06 Source: patient Mode of arrival: ambulatory Limitations: no limitations History of Present Illness HPI narrative: 68-year-old white male with a history of diverticulitis complains of abdominal pain feels like his diverticulitis that he has had in the past. He was placed on Bactrim DS twice a day for 14 days he got better in about a week. This time his pain started this afternoon his right lower quadrant similar to the last time. Denies any changes in bowel habits nausea vomiting diarrhea bleeding or bruising melena chest pain back pain shortness of breath fever runny nose rash or itching Related Data Home Medications ?Medication ?Instructions ?Recorded ?Confirmed ?Last Taken ?Type atorvastatin 10 mg tablet (Lipitor) 10 mg PO DAILY 04/17/24 05/28/24 Unknown History clopidogrel 75 mg tablet (Plavix) 75 mg PO DAILY 04/17/24 05/28/24 Unknown History Men's One Daily 1 tablet PO DAILY 04/22/24 05/28/24 Unknown History Vitamin B-12 500 mg PO DAILY 04/22/24 05/28/24 Unknown History allopurinol 300 mg tablet 300 mg PO EVERY OTHER DAY 04/22/24 05/28/24 Unknown History aspirin 81 mg tablet,delayed 81 mg PO DAILY 04/22/24 05/28/24 Unknown History release brimonidine 0.2 % eye drops 1 drp EACH EYE DAILY 04/22/24 05/28/24 Unknown History gabapentin 300 mg capsule 300 mg PO BID 04/22/24 05/28/24 Unknown History (Neurontin) gabapentin 300 mg capsule 600 mg PO HS 04/22/24 05/28/24 Unknown History (Neurontin) lisinopril 40 mg tablet 40 mg PO DAILY 04/22/24 05/28/24 Unknown History magnesium 250 mg tablet 250 mg PO DAILY 04/22/24 05/28/24 Unknown History potassium 99 mg PO DAILY 04/22/24 05/28/24 Unknown History prazosin 1 mg capsule 1 mg PO HS 04/22/24 05/28/24 Unknown History prazosin 2 mg capsule 2 mg PO HS 04/22/24 05/28/24 Unknown History tamsulosin 0.4 mg capsule 0.4 mg PO DAILY 04/22/24 05/28/24 Unknown History timolol maleate 0.25 % eye drops 1 drp EACH EYE DAILY 04/22/24 05/28/24 Unknown History Allergies Allergy/AdvReac Type Severity Reaction Status Date / Time buspirone (From BuSpar) Allergy Unknown Verified 05/28/24 17:44 poison sumac extract Allergy Hives Verified 05/28/24 17:44 terbinafine (From Lamisil) Allergy Swelling Verified 05/28/24 17:44 [facility] Past Medical History Medical History CAD (coronary artery disease) TIA (transient ischemic attack) Social History Social History Social History: Light smoker. No history of alcohol use. Exam 2 Narrative: ?White male patient with no apparent distress.? Head normocephalic, atraumatic.? Eyes conjunctiva pink sclera nonicteric.? Extraocular movements are intact.? Ears externally normal.? Oropharynx is clear with moist mucous membranes without exudates.? Neck is supple nontender no lymphadenopathy.? Back is nontender.? Lungs are clear.? Heart is regular rate and rhythm without murmurs gallops or rubs.? Chest wall nontender. Abdomen is soft with positive bowel sounds. He has right lower quadrant tenderness without rebound. He has no hepatosplenomegaly or masses no CVA tenderness no abdominal bruits.? testes penis normal no inguinal hernia bilaterally. Extremities no cyanosis clubbing or edema.? Skin is warm and dry without rashes or lesions.? Neurological patient is alert and oriented x4.? Motor and sensory grossly intact.? Gait is normal. Course Vital Signs Vital signs: Vital Signs Pulse Rate 73 05/28/24 17:32 Respiratory Rate 17 05/28/24 17:32 Blood Pressure 135/103 H 05/28/24 17:32 Pulse Oximetry 97 05/28/24 17:32 Pulse Rate 68 05/28/24 18:01 Respiratory Rate 17 05/28/24 18:01 Blood Pressure 162/102 H 05/28/24 18:01 Pulse Oximetry 96 05/28/24 18:30 Medical Decision Making MDM Narrative Medical decision making narrative: ?Patient placed in room: 1 ? History and physical was performed. Independent Historian: patient External Source Review: April 23 had diverticulitis was put on Bactrim Differential Dx includes but not limited to: radiculitis bowel obstruction Medications were Reviewed: Medications given: patient states pain was gone prior to discharge Independently Interpreted by me: Shared decision Making: evaluation was discussed all questions were asked and answered patient agreed with the plan. Social Situation Impacting Patients Care: History of diverticulitis in the past Discussed with Dr. MORLEY DIAGNOSIS: abdominal pain of unclear etiology. DISPOSITION : discharge home CONDITION AT DISCHARGE: stable CBC was unremarkable, CMP and lipase were normal. Vital Signs Vital Signs: Vital Signs Pulse Rate 73 05/28/24 17:32 Respiratory Rate 17 05/28/24 17:32 Blood Pressure 135/103 H 05/28/24 17:32 Pulse Oximetry 97 05/28/24 17:32 Pulse Rate 68 05/28/24 18:01 Respiratory Rate 17 05/28/24 18:01 Blood Pressure 162/102 H 05/28/24 18:01 Pulse Oximetry 96 05/28/24 18:30 Lab Data 05/28/24 18:17 05/28/24 18:17 Labs: Lab Results 05/28/24 05/28/24 Range/Units 18:17 19:11 WBC 6.2 (4.8-10.8) K/mm3 RBC 4.21 L (4.70-6.10) M/mm3 Hgb 13.5 (12.4-15.3) g/dL Hct 39.3 (37.0-46.0) % MCV 93.3 (78.0-102.0) fL MCH 32.1 H (27.0-31.0) pg MCHC 34.4 (32-36) g/dL RDW 12.5 (11.6-14.4) % Plt Count 146 L (150-420) K/mm3 MPV 8.9 (8.7-11.0) fl Sodium 141 (136-145) mmol/L Potassium 4.0 (3.5-5.1) mmol/L Chloride 102 (98-108) mmol/L Carbon Dioxide 30 (21-32) mmol/L Anion Gap 9 (4-12) mmol/L BUN 15 (7-18) mg/dL Creatinine 1.02 (0.70-1.30) mg/dL Estim Creat Clear Calc Not Reportable Estimated GFR > 60 (59 - ) Glucose 98 (70-99) mg/dL Calculated Osmolality 292 (285-295) mOsm/kg Calcium 9.2 (8.5-10.1) mg/dL Total Bilirubin 0.4 (0.00-1.00) mg/dL AST < 10 L (15-37) U/L ALT 22 (16-63) U/L Alkaline Phosphatase 92 (46-116) U/L Total Protein 6.7 (6.4-8.2) g/dL Albumin 3.6 (3.4-5.0) g/dL Lipase 40 (16-77) U/L Urine Color Light yellow (Yellow) Urine Appearance Clear (Clear) Urine pH 7.0 (5.0-8.0) Ur Specific [place] 1.010 (1.010-1.020) Urine Protein Negative (Negative) Urine Glucose (UA) Negative (Negative) Urine Ketones Negative (Negative) Ur Blood (Man) Negative (Negative) Urine Nitrate Negative (Negative) Urine Bilirubin Negative (Negative) Urine Urobilinogen 1.0 (0.2-1.0) mg/dL Leukocyte Esterase Rfl Negative (Negative) TOMER/UL Discharge Plan Discharge Clinical Impression: Abdominal pain Qualifiers: Abdominal location: right lower quadrant Qualified Code(s): R10.31 - Right lower quadrant pain Patient Disposition: Home, Self-Care Condition: Stable Instructions: Abdominal Pain (ED) Additional Instructions: return if you get worse or develops any new symptoms. Follow up with her primary care provider next week. Patient Language: Maori Prescriptions: No Action atorvastatin [Lipitor] 10 mg tablet 10 mg PO DAILY clopidogrel [Plavix] 75 mg tablet 75 mg PO DAILY prazosin 1 mg capsule 1 mg PO HS aspirin [Adult Aspirin EC Low Strength] 81 mg Tablet,Delayed Release (Dr/Ec) 81 mg PO DAILY tamsulosin 0.4 mg capsule 0.4 mg PO DAILY timolol maleate 0.25 % drops 1 drp EACH EYE DAILY brimonidine 0.2 % drops 1 drp EACH EYE DAILY gabapentin [Neurontin] 300 mg capsule 600 mg PO HS gabapentin [Neurontin] 300 mg capsule 300 mg PO BID Rx Instructions: take one capsule in the morning and one at noon allopurinol 300 mg tablet 300 mg PO EVERY OTHER DAY magnesium 250 mg Tablet 250 mg PO DAILY lisinopril 40 mg tablet 40 mg PO DAILY prazosin 2 mg capsule 2 mg PO HS Men's One Daily 1 tablet PO DAILY Vitamin B-12 500 mg PO DAILY potassium capsule 99 mg PO DAILY Follow-up/Referrals: UNKNOWN,DOCTOR [Non-Staff] - Time of Disposition: 20:26
[2024-05-28 18:20] LABS: Hematocrit 39.3 % (37.0-46.0); Hemoglobin 13.5 g/dL (12.4-15.3); Mean Corpuscular HGB Conc 34.4 g/dL (32-36); Mean Corpuscular Hemoglobin 32.1 pg (27.0-31.0); Mean Corpuscular Volume 93.3 fL (78.0-102.0); Mean Platelet Volume 8.9 fl (8.7-11.0); Platelet Count Result 146 K/mm3 (150-420); Red Blood Count 4.21 M/mm3 (4.70-6.10); Red Cell Distribution Width 12.5 % (11.6-14.4); White Blood Count 6.2 K/mm3 (4.8-10.8)
[2024-05-28 18:36] LABS: Alanine Aminotransferase 22 U/L (16-63); Albumin Level 3.6 g/dL (3.4-5.0); Alkaline Phosphatase 92 U/L (46-116); Anion Gap 9 mmol/L (4-12); Aspartate Amino Transferase < 10 U/L (15-37); Bilirubin,Total 0.4 mg/dL (0.00-1.00); Blood Urea Nitrogen 15 mg/dL (7-18); Calcium 9.2 mg/dL (8.5-10.1); Carbon Dioxide 30 mmol/L (21-32); Chloride 102 mmol/L (98-108); Estimated Glomerular Filt Rate > 60; Glucose 98 mg/dL (70-99); Lipase 40 U/L (16-77); Osmolality Calculated 292 mOsm/kg (285-295); Sodium 141 mmol/L (136-145); Total Protein 6.7 g/dL (6.4-8.2)
--- NOTE | 2024-05-28 18:55 | PC.NURSE ---
Patient back in room from CT. Taken down to bathroom.
[2024-05-28 19:14] LABS: Add Urine Microscopic? NO; Appearance Urine Clear (Clear); Bilirubin Urine Negative (Negative); Blood Urine Negative (Negative); Color Urine Light Yellow (Yellow); Glucose Urine UA Negative (Negative); Ketones Urine Negative (Negative); Leukocyte Esterase Ur Negative LEU/UL (Negative); Nitrate Urine Negative (Negative); Protein Urine Negative (Negative)
== END 2024-05-28 20:37 | disposition home or self-care (01) ==
PROVIDERS: Emergency Provider Emergency Medicine
DX: R10.31 Right lower quadrant pain (principal); Z87.19 Personal history of other diseases of the digestive system; Z79.02 Long term (current) use of antithrombotics/antiplatelets; Z79.82 Long term (current) use of aspirin
CPT/HCPCS: 36415; 74177; 80053; 81003; 83690; 85027; 99284; Q9967

== ENCOUNTER 2025-01-17 18:09 | Emergency (ER) | payer MEDICARE, MEDICAID, SELFPAY ==
--- NOTE | ~2025-01-17 | XR_ITS ---
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 Lisfranc joint intact. No acute fracture, subluxation or dislocation. There is a small degenerative calcaneal enthesophyte. Impression: 1: No acute fracture. Reviewed, dictated and finalized at location A. Impression: 1: No acute fracture.
[2025-01-17 18:10] VITALS: BP 140/103; PULSE 74; RESP 20; TEMP 36.8; O2SAT 97
--- OUTSIDE RECORDS SUMMARY | 2025-01-17 18:12 | XMS_ITS | Clinical Summary ---
Author Organization [facility] Address [address] [place] [address] Care Team Providers Care Overhead Cleaner Maintainer Name Role Phone Martell Newberry MD Unavailable [phone] Isela Falcon NP Unavailable Vikki Gusman MD Unavailable Mary Bronson Primary Care Provide r Allergies Active Allergy Reactions Criticality Noted Date Comments Buspirone Anaphylaxis,Unknown High 11/17/2017 Lamotrigine Throat swelling High 05/13/2023 [place] Anaphylaxis High 04/30/2024 Terbinafine Rash,Swelling,Unknown Low 11/17/2017 Medications allopurinol 300 MG tablet Take 1 tablet (300 mg total) by mouth every other day. Every 2 days Active vitamin B-12 (CYANOCOBALAMI N) 1000 mcg tablet Take 2.5 tablets (2,500 mcg total) by mouth every other day. Active tamsulosin (FLOMAX) 0.4 MG Cap Take 1 capsule (0.4 mg total) by mouth daily. 3 Active magnesium oxide (MAG-OX) 400 MG tablet Take 1 tablet (400 mg total) by mouth daily. Active multi vitamin/minera ls (THERA-M ENHANCED) tablet Take 1 tablet by mouth daily. Active aspirin EC (ECOTRIN) 81 MG tablet Take 1 tablet (81 mg total) by mouth daily. 3 Active prazosin (MINIPRESS) 1 MG capsule Take 1 capsule (1 mg total) by mouth nightly at bedtime. Total 3 mg daily 90 capsule 3 Active prazosin (MINIPRESS) 2 MG capsule Take 1 capsule (2 mg total) by mouth nightly at bedtime. Total 3 mg daily 3 Active brimonidine (ALPHAGAN) 0.2 % ophthalmic solution Place 1 drop into both eyes 3 (three) times daily. 3 Active latanoprost (XALATAN) 0.005 % ophthalmic solution Place 1 drop into both eyes nightly at bedtime. Active timolol (TIMOPTIC) 0.25 % ophthalmic solution Place 1 drop into both eyes daily. 4 Active POTASSIUM CHLORIDE OR Take 1 tablet by mouth daily. Over the counter supplement Active lisinopril (PRINIVIL) 40 MG tablet Take 1 tablet (40 mg total) by mouth daily. Active levETIRAcetam (KEPPRA) 500 MG tablet Take 1 tablet (500 mg total) by mouth 2 (two) times daily. 60 tablet 3 5 Active pregabalin (LYRICA) 50 MG capsuleIndicat ions:Tarsal tunnel syndrome of right side,Idiopathi c neuropathy Take 1 capsule (50 mg total) by mouth 3 (three) times daily. 90 capsule 1 5 Active triamcinolone (KENALOG) 0.1 % ointmentIndica tions:Eczema of lower extremity Apply topically 2 (two) times daily. 30 g 1 5 Active pregabalin (LYRICA) 50 MG capsuleIndicat ions:Tarsal tunnel syndrome of right side,Idiopathi c neuropathy Take 1 capsule (50 mg total) by mouth 3 (three) times daily. 90 capsule 1 5 01/14/20 25 Discontinu ed(Reorder ) Active Problems Problem Noted Date Diagnosed Date Hypertensive emergency 07/25/2024 TIA (transient ischemic attack) 05/04/2024 Acute CVA (cerebrovascular accident) ([facility] S/HCC) 04/14/2024 Implantable loop recorder present 12/11/2023 Transient neurological symptoms 07/24/2023 Syncope 07/24/2023 Hypertensive urgency 05/13/2023 Fall 01/05/2023 CAD (coronary artery disease) 12/16/2022 Lumbar strain 05/28/2022 Abnormal cardiovascular stress test 10/20/2019 Hyperlipidemia 10/20/2019 Hypertension 10/20/2019 Tobacco abuse 10/20/2019 Encounters Date Type Department Care Team Description 01/17/2025 Orders Only [facility] [address] [place] [address] Olayinka Blanco, SUSIE 01/13/2025 10:15 AM CDT Office Visit [facility] [address] [place] [address] Olayinka Blanco, DPSeamus Foot Injury; Numbness 01/13/2025 3:00 AM CDT Allied Health/Nurse Visit [facility] [address] [place] [address] Vikki Gusman MD 01/13/2025 Telephone [facility] [address] [place] [address] Olayinka Blanco, DPM Referral 01/13/2025 Travel 12/20/2024 Telephone [facility] [address] [place] [address] Vikki Gusman MD Reschedule 12/17/2024 Telephone [facility] [address] [place] [address] Vikki Gusman MD Appointment Reminder 12/10/2024 Orders Only [facility] [address] [place] [address] Olayinka Blanco DPM 12/09/2024 11:45 AM CDT Office Visit [facility] [address] [place] [address] Olayinka Blanco DPM Foot Pain 12/09/2024 Travel 11/30/2024 Orders Only [facility] [address] [place] [address] Vikki Gusman MD 11/29/2024 12:10 AM CDT - 11/29/2024 1:39 AM CDT Emergency [facility] [address] [place] [address] Kaiser Cortez DO Foot Pain (R foot) Discharge Disposition: Home or Self Care (Routine Discharge) 11/29/2024 Travel 10/29/2024 1:30 AM CDT [facility] [address] [place] [address] Vikki Gusman MD from Last 3 Months Family History Medical History Relation Comments COPD Father Stroke Father Heart Attack Mother Heart Disease Mother Hypertension Mother Stroke Paternal Grandfather Relation Status Comments Father Maternal Grandfather Maternal Grandmother Mother Paternal Grandfather Paternal Grandmother Social History Tobacco Use Types Packs/Day Years Used Date Smoking Tobacco: Every Day Cigarettes 0.5 30.8 Started: 04/2024 Smokeless Tobacco: Never Tobacco Cessation:Ready to Q uit: Not Asked; Counseling Given: Not Answered Comments:Patient uses nicotine lozenges #4 Alcohol Use Standard Drinks/Week Comments Yes 0 (1 standard drink = 0.6 oz pur e alcohol) rarely B1300 Health Literacy Answer Date Recor ded How often do you need to hav e someone help you when you read instructions, pamphlets, or other written material from your doctor or pharmacy? Rarely 04/14/2024 [facility] Utilities Answer Date Recorded In the past 12 months has e [employer], gas, oil, or water [employer] threatened to shut off services in your home? No 07/27/2024 Humiliation, Afraid, Rape, and Kick questionnair e Answer Date Recorded Within the last year, have y ou been afraid of your partner or ex-partner? No 07/27/2024 Within the last year, have y ou been humiliated or emotionally abused in other ways by your partner or ex-partner? No Within the last year, have y ou been kicked, hit, slapped, or otherwise physically hurt by your partner or ex-partner? No 07/27/2024 Within the last year, have y ou been raped or forced to have any kind of sexual activity by your partner or ex-partner? No 07/27/2024 Social Connection and Isolation Panel [NHANES] A nswer Date Recorded In a typical week, how many times do you talk on the phone with family, friends, or neighbors? Three times a week 04/14/20 How often do you get togethe r with friends or relatives? Twice a week 04/14/2024 How often do you attend chur ch or samaritan services? 1 to 4 times per year 04/14/2024 Do you belong to any clubs o r organizations such as baptism groups, unions, fraternal or athletic groups, or school groups? No 04/14/2024 How often do you attend meet ings of the clubs or organizations you belong to? Never 04/14/2024 Are you , , di vorced, , never , or living with a partner? 04/14/2024 AUDIT-C Answer Date Recorded Q1: How often do you have a drink containing alc ohol? Monthly or less 04/14/2024 Q2: How many drinks containi ng alcohol do you have on a typical day when you are drinking? 1 or 2 04/14/2024 Q3: How often do you have si x or more drinks on one occasion? Never 04/14/2024 Overall Financial Resource Strain (CARDIA) Answe r Date Recorded How hard is it for you to pa y for the very basics like food, housing, medical care, and heating? Not hard at all 07/27/2024 [facility] - Occupational Stress Questionnaire Answer Date Recorded Do you feel stress - tense, restless, nervous, or anxious, or unable to sleep at night because your mind is troubled all the time - these days? Only a little 04/14/2024 Hunger Vital Sign Answer Date Recorded Within the past 12 months, y ou worried that your food would run out before you got the money to buy more. Never true 07/27/19 25 Within the past 12 months, t he food you bought just didn't last and you didn't have money to get more. Never true 07/27/2024 PRAPARE - Transportation Answer Date Re corded In the past 12 months, has l ack of transportation kept you from medical appointments or from getting medications? No 07/04 In the past 12 months, has l ack of transportation kept you from meetings, work, or from getting things needed for daily living? No 07/27/2024 Housing Stability Vital Sign Answer Eugene e Recorded In the last 12 months, was t here a time when you were not able to pay the mortgage or rent on time? No 05/14/2023 In the last 12 months, how many places have you lived? 1 05/14/2023 In the last 12 months, was t here a time when you did not have a steady place to sleep or slept in a halfway (including now)? No 05/14/2023 Housing Stability Vital Sign Answer Eugene e Recorded In the last 12 months, was t here a time when you were not able to pay the mortgage or rent on time? No 07/27/2024 In the past 12 months, how m any times have you moved where you were living? 0 07/27/2024 At any time in the past 12 m [facility], were you homeless or living in a halfway (including now)? No 07/27/2024 Sex and Gender Information Value Date Recorded Sex Assigned at Male 07/25/2024 12:12 AM SUBSTATION WIREMAN Legal Sex Male 5:43 PM CDT Gender Identity Not on file Sexual Orientation Not on file Last Filed Vital Signs Vital Sign Reading Time Taken Comments Blood Pressure 100/70 11/29/2024 1:00 AM CDT Pulse 80 11/29/2024 1:15 AM CDT Temperature 36.1 C (97 F) 11/29/2024 12:08 AM CDT Respiratory Rate 18 11/29/2024 1:15 AM CDT Oxygen Saturation 99% 11/29/2024 1:15 AM CDT Inhaled Oxygen Concentration - - Weight 106.1 kg (234 lb) 01/13/2025 10:32 AM CDT Height 193 cm (6' 4) 01/13/2025 10:32 AM CDT Body Mass Index 28.48 01/13/2025 10:32 AM CDT Plan of Treatment Upcoming Encounters Date Type Department Care Team (Late st Contact Info) Description 03/21/2025 11:00 AM CDT Office Visit [facility] [address] [place] [address] Vikki Gusman MD [address] [place] [phone] Henry Torres PA-C [address] [place] [address] 03/21/2025 11:00 AM CDT Allied Health/Nurse Visit [facility] [address] [place] [address] Vikki Gusman MD [address] [place] [phone] 04/22/2025 2:15 AM SUBSTATION WIREMAN Allied Health/Nurse Visit [facility] [address] [place] [address] Vikki Gusman MD [address] [place] [address] Health Maintenance Due Date Last Done Comments ASCVD Statin 1956 Colorectal Cancer Screening Colonoscopy (10 Years) 1956 Hepatitis C 1974 Zoster Vaccines (1 of 2) 2006 RSV Immunization or 60+ Years (1 - Risk 60-74 years 1-dose series) 2016 Annual Medicare Wellness Visit 2021 COVID-19 Vaccine ( season) 2024 03/01/2022, 10/11/2020, 09/20/2020 DTaP, Tdap and Td Vaccines (2 - Td or Tdap) 03/08/2034 03/08/2024 AAA SCREENING Completed 05/13/2023, 01/31, 01/04/2023, Additional history exists Pneumococcal Vaccine: 50+ Years Completed 09/23/2023 Meningococcal B Vaccine Aged Out No l onger eligible based on patient's age to complete this topic Meningococcal Vaccine Aged Out No davis armando eligible based on patient's age to complete this topic RSV Immunizations Under 20 Months Aged Out No longer eligible based on patient's age to complete this topic Goals Goal Patient Goal Type Associated Problems Recent Progress Patient-Stated? Author Patient will return to prior living situation and remain independent in ADLs upon discharge from hospital General No Lorraine Parr RN Medical Devices Implanted Type Area Geek Squad Manager Device Identifier Shelf Expiration Date Model / Serial / Lot [employer] [place] [employer] Lux-Dx- 4 Implanted:04/0 10/2023 by Vikki Gusman MD (Quantity not on file) Implantable Loop Recorder MonoSphere 01/22/2025 [id number] / [id number] / Description:DX: Syncope Patch Archana. Vasc. Vascu-Guard 0.8cm X 8cm - [id number] Implanted:Qty: 1 on 05/04/2024 by Mukund Hernadez MD at [facility] Mesh [employer] [id number] 09/14/2025 [id number] / / [id number] Agent Hemostatic Surgiflo 8 Ml Kit - [id number] Implanted:Qty: 1 on 05/04/2024 by Mukund Hernadez MD at [facility] Sealant Left: Neck [employer] 03/01/2025 [id number] / / [id number] Explanted Type Area Geek Squad Manager Device Identifier Shelf Expiration Date Model / Serial / Lot Kit Shunt Ames Carotid Artery Straight - [id number] Explanted:Qty: 1 on 05/04/2024 by Mukund Hernadez MD at [facility] Shunt [employer] [id number] / / Procedures Procedure Name Priority Date/Time Associated Diagnosis Comments MAGNESIUM STAT 11/29/2024 12:16 AM CDT LACTIC ACID W REFLEX (SEPSIS) STAT 11/29/2024 12:16 AM CDT COMPREHENSIVE METABOLIC PANEL STAT 11/29/2024 12:16 AM CDT CBC W/DIFF AUTOMATED STAT 11/29/2024 12:[address] ABD+PEL W CON STAT 05/13/2023 8:38 PM SUBSTATION WIREMAN from Last 3 Months or Most Recently Relevant to Health Maintenance Results * LACTIC ACID W REFLEX (SEPSIS) (11/29/2024 12:16 AM CDT) LACTIC ACID VENOUS 0.9 0.4 - 2.0 MMOL/L 11/29/2024 12:50 AM CDT [facility] 11/29/2024 12:1 6 AM CDT Kaiser Cortez DO LABORATORY Final Result [facility] [address] [place] [address], * (ABNORMAL) COMPREHENSIVE METABOLIC PANEL (11/29/2024 12:16 AM CDT) SODIUM S/P/B 143 136 - 145 MMOL/L 11/29/2024 12:47 AM CDT [facility] POTASSIUM S/P/B 3.8 3.5 - 5.1 MMOL/L 11/29/2024 12:47 AM CDT [facility] CHLORIDE S/P/B 107 98 - 107 MMOL/L 11/29/2024 12:47 AM CDT [facility] CO2 30.1 21.0 - 32.0 MMOL/L 11/29/2024 12:47 AM CDT [facility] GLUCOSE 112(H) 70 - 99 MG/DL 11/29/2024 12:47 AM CDT [facility] Comment: FASTING GLUCOSE 100 TO 125 MG/DL IS CONSISTENT WITH IMPAIRED FASTING GLUCOSE. FASTING GLUCOSE >125 MG/DL IS CONSISTENT WITH DIABETES. RANDOM GLUCOSE >200 MG/DL WITH HYPERGLYCEMIC SYMPTOMS IS CONSISTENT WITH DIABETES. PER ADA GUIDELINES BUN 21 6 - 24 MG/DL 11/29/2024 12:47 AM CDT [facility] CREATININE S/P/B 1.05 0.70 - 1.30 MG/DL 11/29/2024 12:47 AM CDT [facility] CALCIUM S/P/B 9.2 8.4 - 10.5 MG/DL 11/29/2024 12:47 AM [facility] BILIRUBIN TOTAL S/P/B 0.3 0.2 - 1.0 MG/DL 11/29/2024 12:47 AM [facility] Comment: THIS ASSAY IS NOT RECOMMENDED FOR PATIENTS UNDERGOING TREATMENT WITH ELTROMBOPAG DUE TO THE POTENTIAL FOR FALSELY ELEVATED RESULTS. ALKALINE PHOSPHATASE S/P/B 75 45 - 115 U/L 11/29/2024 12:47 AM [facility] AST 11(L) 15 - 37 U/L 11/29/2024 12:47 AM [facility] ALT 19 16 - 63 U/L 11/29/2024 12:47 AM [facility] TOTAL PROTEIN S/P/B 6.5 6.4 - 8.2 G/DL 11/29/2024 12:47 AM [facility] ALBUMIN S/P/B 3.5 3.4 - 5.0 G/DL 11/29/2024 12:47 AM [facility] ANION GAP 5.9 5.0 - 15.0 MMOL/L 11/29/2024 12:47 AM [facility] OSMOLALITY (CALC) 300 MOSM/KG 025 12:47 AM [facility] Comment:REFERENCE RANGE NOT ESTABLISHED GFR ESTIMATE 77(L) >89 ML/MIN/1. 73 M2 11/29/2024 12:47 AM [facility] GFR NOTES GFR REFERENCE S: 11/29/2024 12:47 AM [facility] Comment: THE ESTIMATED GFR IS CALCULATED USING THE 2020 CKD-EPI EQUATION. THE FOLLOWING CATEGORIES FOR GRADING RENAL FUNCTION ARE RECOMMENDED BY THE INTERNATIONAL SOCIETY OF NEPHROLOGY (KDIGO 2012 CLINICAL PRACTICE GUIDELINE). G1,NORMAL OR HIGH: >89 ml/min/1.73 m2 G2,MILDLY DECREASED: 60-89 ml/min/1.73 m2 G3A,MILDLY TO MODERATELY DECREASED: 45-59 ml/min/1.73 m2 G3B,MODERATELY TO SEVERELY DECREASED: 30-44 ml/min/1.73 m2 G4,SEVERELY DECREASED: 15-29 ml/min/1.73 m2 G5,KIDNEY FAILURE: <15 ml/min/1.73 m2 11/29/2024 12:1 6 AM CDT Kaiser Cortez DO LABORATORY Final Result [facility] [address] [place] [address], * (ABNORMAL) CBC W/DIFF AUTOMATED (11/29/2024 12:16 AM CDT) Pathologist [facility] WBC 6.60 4.00 - 10.80 x10'3/uL 11/29/2024 12:21 AM CDT [facility] RBC 4.14(L) 4.50 - 6.10 x10'6/uL 11/29/2024 12:21 AM CDT [facility] HGB 13.4 13.0 - 18.0 G/DL 11/29/2024 12:21 AM CDT [facility] HCT 38.6 37.0 - 52.0 % 11/29/2024 12:21 AM CDT [facility] MCV 93.2 78.0 - 100.0 FL 11/29/2024 12:21 AM CDT [facility] MCH 32.4(H) 27.0 - 31.0 PG 11/29/2024 12:21 AM CDT [facility] MCHC 34.7 33.0 - 36.0 G/DL 11/29/2024 12:21 AM CDT [facility] RDW 12.0 11.5 - 14.5 % 11/29/2024 12:21 AM CDT [facility] PLT 148(L) 150 - 350 x10'3/uL 11/29/2024 12:21 AM CDT [facility] MPV 9.9 7.4 - 10.4 FL 11/29/2024 12:21 AM CDT [facility] CBC COMMENT NORMAL REFERENCE RANGE NOT ESTABLISHED FOR THE PROPORTIONAL LEUKOCYTE DIFFERENTIAL. 11/29/2024 12:21 AM CDT [facility] NEUTROPHILS % 64.8 % 11/29/2024 12:21 AM CDT [facility] LYMPHOCYTES % 23.9 % 11/29/2024 12:21 AM CDT [facility] MONOCYTES % 7.6 % 11/29/2024 12:21 AM CDT [facility] EOSINOPHILS % 2.9 % 11/29/2024 12:21 AM CDT [facility] BASOPHILS % 0.6 % 11/29/2024 12:21 AM CDT [facility] IMMATURE GRANS % 0.2 % 11/30/19 12:21 AM CDT [facility] NRBC % 0.0 % 11/29/2024 12:21 AM CDT [facility] ABS. NEUTROPHILS 4.28 1.60 - 8.30 x10'3/uL 11/29/2024 12:21 AM CDT [facility] ABS. LYMPHOCYTES 1.58 0.80 - 4.70 x10'3/uL 11/29/2024 12:21 AM CDT [facility] ABS. MONOCYTES 0.50 0.00 - 1.50 x10'3/uL 11/29/2024 12:21 AM CDT [facility] ABS. EOSINOPHILS 0.19 0.00 - 0.40 x10'3/uL 11/29/2024 12:21 AM CDT [facility] ABS. BASOPHILS 0.04 0.00 - 0.20 x10'3/uL 11/29/2024 12:21 AM CDT [facility] ABS. IMMATURE GRANULOCYTES 0.01 0.00 - 0.03 x10'3/uL 11/29/2024 12:21 AM CDT [facility] ABS. NUCLEATED RBC'S 0.00 0.00 - 0.01 x10'3/uL 11/29/2024 12:21 AM CDT [facility] 11/29/2024 12:1 6 AM CDT Kaiser Cortez DO LABORATORY Final Result [facility] [address] [place] [address], * MAGNESIUM (11/29/2024 12:16 AM CDT) MAGNESIUM 1.8 1.8 - 2.4 MG/DL 11/29/2024 12:47 AM CDT [facility] 11/29/2024 12:1 6 AM CDT us Kaiser Cortez DO LABORATORY Final Result Performing Organization Address City/[facility] Co de Phone Number [facility] [address] [place] [address], * CT ABD+PEL W CON (05/13/2023 8:38 PM SUBSTATION WIREMAN) Anatomical Region Laterality Modality Abdomen Computed Tomogra phy 05/13/2023 8:54 PM SUBSTATION WIREMAN Impressions 05/13/2023 9:00 PM SUBSTATION WIREMAN IMPRESSION: 1. CT findings compatible with acute proctitis. A follow-up colonoscopy is recommended following resolution of symptoms. 2. Scattered colonic diverticulosis without evidence of acute inflammation. 3. Prostatomegaly. Ordered By: HAWK LICEA Interpreted By: Yanet Hernandez MD, 05/13/2023 8:54 PM Narrative 05/13/2023 9:00 PM SUBSTATION WIREMAN PROCEDURE: CT ABD+PEL W CON HISTORY: Periumbilical abdominal pain. TECHNIQUE: Helical CT of the abdomen and pelvis was performed using non-ionic intravenous contrast (Isovue-370, 100 mL). No oral contrast was administered. A dose lowering technique was used for this procedure, which may include, but is not limited to, dose reduction technique, automated exposure control, the use of iterative reconstruction, and ALARA (As Low As Reasonably Achievable) / Image Gently techniques. COMPARISON: CT abdomen and pelvis with contrast, 02/16/[address] ABDOMEN/PELVIS: Lower thorax: There is subsegmental atelectasis in the lower lobes. The heart is normal in size. Liver: The liver is normal in size. There is no intrahepatic mass. Biliary tree: The gallbladder is present. There is no biliary ductal dilatation. Spleen: unremarkable Pancreas: The pancreas is normal in size and enhances homogenously. Adrenal glands: Unremarkable. Kidneys: There are bilateral symmetric nephrograms without hydronephrosis. Lymph nodes: Abdomen: There is no abdominal adenopathy. Pelvis: There is no pelvic adenopathy. Vasculature: There is no abdominal aortic aneurysm. Atherosclerotic calcification is seen. Peritoneum/mesentery/omentum: There is no free fluid or free air. GI tract: There is no bowel obstruction. The appendix normal. There is wall thickening involving the distal rectum with associated perirectal fat stranding, which can be seen with acute prostatitis. Scattered colonic diverticulosis without evidence of acute inflammation. Pelvic urogenital structures:The bladder is grossly unremarkable. The prostate is enlarged. Body wall: The osseous structures are unremarkable. Freeman: (S/I) = series number / image number Procedure Note Yanet Hernandez MD - 05/13/2023 PROCEDURE: CT ABD+PEL W CON HISTORY: Periumbilical abdominal pain. TECHNIQUE: Helical CT of the abdomen and pelvis was performed usingnon-ionic intravenous contrast (Isovue-370, 100 mL). No oral contrast wasadministered. A dose lowering technique was used for this procedure, which may include,but is not limited to, dose reduction technique, automated exposurecontrol, the use of iterative reconstruction, and ALARA (As Low AsReasonably Achievable) / Image Gently techniques. COMPARISON: CT abdomen and pelvis with contrast, 02/16/[address] ABDOMEN/PELVIS: Lower thorax: There is subsegmental atelectasis in the lower lobes. Theheart is normal in size. Liver: The liver is normal in size. There is no intrahepatic mass. Biliary tree: The gallbladder is present. There is no biliary ductaldilatation. Spleen: unremarkable Pancreas: The pancreas is normal in size and enhances homogenously. Adrenal glands: Unremarkable. Kidneys: There are bilateral symmetric nephrograms withouthydronephrosis. Lymph nodes: Abdomen: There is no abdominal adenopathy. Pelvis: There is no pelvic adenopathy. Vasculature: There is no abdominal aortic aneurysm. Atheroscleroticcalcification is seen. Peritoneum/mesentery/omentum: There is no free fluid or free air. GI tract: There is no bowel obstruction. The appendix normal. There iswall thickening involving the distal rectum with associated perirectal fatstranding, which can be seen with acute prostatitis. Scattered colonicdiverticulosis without evidence of acute inflammation. Pelvic urogenital structures:The bladder is grossly unremarkable. Theprostate is enlarged. Body wall: The osseous structures are unremarkable. Freeman: (S/I) = series number / image number IMPRESSION: 1. CT findings compatible with acute proctitis. A follow-up colonoscopyis recommended following resolution of symptoms. 2. Scattered colonic diverticulosis without evidence of acuteinflammation. 3. Prostatomegaly. Ordered By: HAWK LICEA Interpreted By: Yanet Hernandez MD, 05/13/2023 8:54 PM Hawk Licea MD CT Final Res ult from Last 3 Months or Most Recently Relevant to Health Maintenance Insurance MEDICAID [facility] MEDICAID MEDICAID Advance Directives * Full Code (Latest Code Status on File) Date Activated Date Inactivated Comments 07/25/2024 12:07 PM 07/27/2024 4:35 PM * Full Code Date Activated Date Inactivated Comments 05/04/2024 3:02 PM 05/05/2024 2:17 PM * Full Code Date Activated Date Inactivated Comments 07/24/2023 12:47 AM 07/24/2023 6:35 PM * Full Code Date Activated Date Inactivated Comments 05/14/2023 5:37 AM 05/15/2023 4:15 PM * Full Code Date Activated Date Inactivated Comments 06/26/2021 1:10 PM 06/27/2021 5:37 PM Care Teams Overhead Cleaner Maintainer Relationship Specialty Start Date End Date Mary Bronson APNP [address] [place] [address] PCP - General NURSE PRACTITIONER 04/14/24 Martell Newberry MD Seismic Prospecting Observer INTERVENTIONAL CARDIOLOGY 10/19/19 Isela Falcon NP NURSE PRACTITIONER 11/22/22 Vikki Gusman MD [address] [place] [address] Consulting Physician CLINICAL CARDIAC ELECTROPHYSIOLOGY 09/08/23
--- OUTSIDE RECORDS SUMMARY | 2025-01-17 18:12 | XMS_ITS | Encounter Summary ---
Author Organization [facility] Address [facility] [place] [address] Care Team Providers Care District Attorney Name Role Phone Martell Newberry MD Unavailable [phone] Jakub Woodard DO Primary Care Provider [phone] Isela Falcon SOAP DRIER OPERATOR Unavailable Vikki Gusman MD Unavailable None, Provider MD Primary Care Provider Unavaila Mary Venegas Primary Care Provide r Encounter Details Date Type Department Care Team (Late st Contact Info) Description 08/27/2023 Hospital Orders Only [facility] [address] [place] [address] Vikki Gusman MD [address] [place] [address] Social History Tobacco Use Types Packs/Day Years Used Date Smoking Tobacco: Every Day Cigarettes 0.5 30 Smokeless Tobacco: Never Alcohol Use Standard Drinks/Week Comments Yes 0 (1 standard drink = 0.6 oz pur e alcohol) rarely [facility] Utilities Answer Date Recorded In the past 12 months has e [employer], gas, oil, or water [employer] threatened to shut off services in your home? No 05/14/2023 Humiliation, Afraid, Rape, and Kick questionnair e Answer Date Recorded Within the last year, have y ou been afraid of your partner or ex-partner? No 05/14/2023 Within the last year, have y ou been humiliated or emotionally abused in other ways by your partner or ex-partner? No Within the last year, have y ou been kicked, hit, slapped, or otherwise physically hurt by your partner or ex-partner? No 05/14/2023 Within the last year, have y ou been raped or forced to have any kind of sexual activity by your partner or ex-partner? No 05/14/2023 Overall Financial Resource Strain (CARDIA) Answe r Date Recorded How hard is it for you to pa y for the very basics like food, housing, medical care, and heating? Not hard at all 05/14/2023 Hunger Vital Sign Answer Date Recorded Within the past 12 months, y ou worried that your food would run out before you got the money to buy more. Never true 05/14/20 23 Within the past 12 months, t he food you bought just didn't last and you didn't have money to get more. Never true 05/14/2023 PRAPARE - Transportation Answer Date Re corded In the past 12 months, has l ack of transportation kept you from medical appointments or from getting medications? No 05/02 In the past 12 months, has l ack of transportation kept you from meetings, work, or from getting things needed for daily living? No 05/14/2023 Housing Stability Vital Sign Answer [...] place to sleep or slept in a snf (including now)? No 05/14/2023 Sex and Gender Information Value Date Recorded Sex Assigned at Male 07/25/2024 12:12 AM MARKETING RESEARCHER Legal Sex Male 5:43 PM CDT Gender Identity Not on file Sexual Orientation Not on file documented as of this encounter Functional Status * Are you deaf or do you have serious difficulty hearing Answer Date of Assessment Author Status No 05/14/2023 2:53 AM Katheryn Guzman RN Active * Are you blind or do you have serious difficulty seeing, even when wearing glasses? Answer Date of Assessment Author Status No 05/14/2023 2:53 AM Katheryn Guzmna RN Active * Do you have serious difficulty walking or climbing stairs? Answer Date of Assessment Author Status No 05/14/2023 2:53 AM Katheryn Guzman RN Active * Do you have difficulty dressing or bathing? Answer Date of Assessment Author Status No 05/14/2023 2:53 AM Katheryn Guzman RN Active * Because of a physical, mental, or emotional condition, do you have difficulty doing errands alone such as visiting a doctor's office or shopping? Answer Date of Assessment Author Status No 05/14/2023 2:53 AM Katheryn Guzman RN Active documented as of this encounter Mental Status * Because of a physical, mental, or emotional condition, do you have serious difficulty concentrating, remembering, or making decisions? Answer Entry Date Author Status No 05/14/2023 3:53 AM Katheryn Guzman RN Active documented in this encounter Plan of Treatment Upcoming Encounters Date Type Department Care Team (Late st Contact Info) Description 03/21/2025 11:00 AM CDT Office Visit [facility] [address] [place] [address] Vikki Gusman MD [address] [place] [address] Henry Torres PA-C [address] [place] [address] 03/21/2025 11:00 AM CDT Allied Health/Nurse Visit [facility] [address] [place] [address] Vikki Gusman MD [address] [place] [address] 04/22/2025 2:15 AM MARKETING RESEARCHER Allied Health/Nurse Visit [facility] [address] [place] [address] Vikki Gusman MD [address] [place] [address] documented as of this encounter Goals Goal Patient Goal Type Associated Problems Recent Progress Patient-Stated? Author Patient will return to prior living situation and remain independent in ADLs upon discharge from hospital General No Lorraine Parr RN documented as of this encounter Visit Diagnoses Not on filedocumented in this encounter Care Teams District Attorney Relationship Specialty Start Date End [place] [address] PCP - General FAMILY PRACTICE 06/25/21 11/17/23 None, MD Zayra PCP - General UNKNOWN PHYSICIAN SPECIALTY 11/18/23 04/13/24 [place] [address] PCP - General NURSE PRACTITIONER 04/14/24 Martell Newberry MD Liner Worker INTERVENTIONAL CARDIOLOGY 10/19/19 Isela Falcon, [place] [phone] NURSE PRACTITIONER 11/22/22 Vikki Gusman MD [address] [place] [address] Consulting Physician CLINICAL CARDIAC ELECTROPHYSIOLOGY 09/08/23 documented as of this encounter
--- OUTSIDE RECORDS SUMMARY | 2025-01-17 18:12 | XMS_ITS | Encounter Summary ---
Author Organization [facility] Address [facility] [place] [address] Care Team Providers Care Middle School Resource Teacher Name Role Phone Martell Newberry MD Unavailable [phone] Isela Falcon NP Unavailable Vikki Gusman MD Unavailable Mary Bronson Primary Care Provide r Reason for Referral * Consultation (Routine) - New Request Specialty Diagnoses / Procedures Referred By Irma cannon Referred To Contact NEUROLOGY Diagnoses Tarsal tunnel syndrome of right side Procedures OFFICE/OUTPATIENT NEW LOW MDM 30-44 MINUTES OFFICE/OUTPT VISIT,NEW,LEVL IV OFFICE/OUTPT VISIT,NEW,LEVL V OFFICE/OUTPT VISIT,EST,LEVL III OFFICE/OUTPT VISIT,EST,LEVL IV OFFICE/OUTPT VISIT,EST,LEVL V Olayinka Blanco, DPM [address] [place] [address] Phone: tel: fax: Referral ID Status Reason Start Date Expiration Date Visits Requested Visits Authorized [id number] New Request Specialty Services 01/17/2025 01/17/2026 1 1 Scheduling Instructions Referral to Neurology for tarsal tunnel and sciatica on the right side Encounter Details Date Type Department Care Team (Late st Contact Info) Description 01/17/2025 Orders Only [facility] [address] [place] [address] Olayinka Blanco DPM [address] [place] [address] Social History Tobacco Use Types Packs/Day Years Used Date Smoking Tobacco: Every Day Cigarettes 0.5 30.8 Started: 04/2024 Smokeless Tobacco: Never Comments:Patient uses nicoti ne lozenges #4 Alcohol Use Standard Drinks/Week Comments Yes 0 (1 standard drink = 0.6 oz pur e alcohol) rarely [id number] Health Literacy Answer Date Recor ded How often do you need to hav e someone help you when you read instructions, pamphlets, or other written material from your doctor or pharmacy? Rarely 04/14/2024 [facility] Utilities Answer Date Recorded In the past 12 months has e [employer], gas, oil, or water [employer] threatened to shut off services in your [...] 04/14/2024 How often do you attend chur or baptism services? 1 to 4 times per year 04/14/2024 Do you belong to any clubs o r organizations such as latter day groups, unions, fraternal or athletic groups, or [...] and heating? Not hard at all 07/27/2024 [facility] - Occupational Stress [...] money to buy more. Never true 07/27/19 Within the past 12 months, t he [...] place to sleep or slept in a alf (including now)? No 05/14/2023 Housing Stability Vital Sign Answer Eugene e Recorded In the last 12 months, was t here a time when you were not able to pay the mortgage or rent on time? No 07/27/2024 In the past 12 months, how m any times have you moved where you were living? 0 07/27/2024 [facility] were you [facility] or living in a alf (including now)? No 07/27/2024 Sex and Gender Information Value Date Recorded Sex Assigned at Male 07/25/2024 12:12 AM S IRON WORKER Legal Sex Male 5:43 PM CDT Gender Identity Not on file Sexual Orientation Not on file documented as of this encounter Functional Status * Are you deaf or do you have serious difficulty hearing Answer Date of Assessment Author Status No 07/25/2024 10:51 AM Obinna Henson R N Active * Are you blind or do you have serious difficulty seeing, even when wearing glasses? Answer Date of Assessment Author Status No 07/25/2024 10:51 AM Obinna Henson R N Active * Do you have serious difficulty walking or climbing stairs? Answer Date of Assessment Author Status No 07/25/2024 10:51 AM Obinna Henson R N Active * Do you have difficulty dressing or bathing? Answer Date of Assessment Author Status No 07/25/2024 10:51 AM Obinna Henson R N Active * Because of a physical, mental, or emotional condition, do you have difficulty doing errands alone such as visiting a doctor's office or shopping? Answer Date of Assessment Author Status No 07/25/2024 10:51 AM Obinna Henson R N Active documented as of this encounter Mental Status * Because of a physical, mental, or emotional condition, do you have serious difficulty concentrating, remembering, or making decisions? Answer Entry Date Author Status No 07/25/2024 10:51 AM Obinna Henson R N Active documented in this encounter Plan of Treatment Upcoming Encounters Date Type Department Care Team (Late st Contact Info) Description 03/21/2025 11:00 AM CDT Office Visit [facility] [address] [place] [address] Vikki Gusman MD [address] [place] [phone] Henry Torres PA-C [address] [place] [address] 03/21/2025 11:00 AM CDT Allied Health/Nurse Visit [facility] [address] [place] [address] Vikki Gusman MD [address] [place] [address] 04/22/2025 2:15 AM S IRON WORKER Allied Health/Nurse Visit [facility] [address] [place] [address] Vikki Gusman MD [address] [place] [address] Scheduled Referrals Name Type Priority Associated Diagnoses Orde r Schedule Ambulatory referral to Neurology Referral Routine Tarsal tunnel syndrome of right side Ordered: 01/17/2025 documented as of this encounter Goals Goal Patient Goal Type Associated Problems Recent Progress Patient-Stated? Author Patient will return to prior living situation and remain independent in ADLs upon discharge from [facility] Lorraine Parr, RN documented as of this encounter Visit Diagnoses Diagnosis Tarsal tunnel syndrome of right side- Primary Tarsal tunnel syndrome documented in this encounter Care Teams Middle School Resource Teacher Relationship Specialty Start Date End Date [place] [phone] PCP - General NURSE PRACTITIONER 04/14/24 Martell Newberry MD Rn Call Center INTERVENTIONAL CARDIOLOGY 10/19/19 Isela Falcon NP NURSE PRACTITIONER 11/22/22 Vikki Gusman MD [address] [place] [address] Consulting Physician CLINICAL CARDIAC ELECTROPHYSIOLOGY 09/08/23 documented as of this encounter
--- OUTSIDE RECORDS SUMMARY | 2025-01-17 18:12 | XMS_ITS | Encounter Summary ---
Author Organization [facility] Address [facility] [place] [address] Care Team Providers Care Packing Line Operator Name Role Phone Martell Newbrery MD Unavailable [phone] Jakub Woodard DO Primary Care Provider [phone] Isela Falcon SECOND HELPER Unavailable Vikki Gusman MD Unavailable None, Provider MD Primary Care Provider Unavaila Mary Venegas Primary Care Provide r Encounter Details Date Type Department Care Team (Late st Contact Info) Description 06/28/2021 Hospital Follow-up Call [facility] [address] [place] [address] Miri Chaudhary RN Social History Tobacco Use Types Packs/Day Years Used Date Smoking Tobacco: Every Day Cigarettes 0.5 30 Smokeless Tobacco: Never Alcohol Use Standard Drinks/Week Comments Yes 0 (1 standard drink = 0.6 oz pur e alcohol) rarely Sex and Gender Information Value Date Recorded Sex Assigned at Male 07/25/2024 12:12 AM STUDENT SUPPORT SERVICES DIRECTOR Legal Sex Male 5:43 PM CDT Gender Identity Not on file Sexual Orientation Not on file COVID-19 Exposure Response Date Recorded In the last month, have you been in contact with someone who was confirmed or suspected to have Coronavirus / COVID-19? No / Unsure 06/26/2021 11:52 AM STUDENT SUPPORT SERVICES DIRECTOR documented as of this encounter Functional Status * RETIRED Are you deaf or do you have serious difficulty hearing Answer Date of Assessment Author Status Yes 06/26/2021 11:57 AM STUDENT SUPPORT SERVICES DIRECTOR Acti ve * RETIRED Are you blind or do you have serious difficulty seeing, even when wearing glasses? Answer Date of Assessment Author Status No 06/26/2021 11:57 AM STUDENT SUPPORT SERVICES DIRECTOR Acti ve * Do you have serious difficulty walking or climbing stairs? Answer Date of Assessment Author Status No 06/26/2021 11:57 AM Terra Kendall RN Active * Do you have difficulty dressing or bathing? Answer Date of Assessment Author Status No 06/26/2021 11:57 AM Terra Kendall RN Active * Because of a physical, mental, or emotional condition, do you have difficulty doing errands alone such as visiting a doctor's office or shopping? Answer Date of Assessment Author Status No 06/26/2021 11:57 AM Terra Kendall RN Active documented as of this encounter Mental Status * Because of a physical, mental, or emotional condition, do you have serious difficulty concentrating, remembering, or making decisions? Answer Entry Date Author Status No 06/26/2021 11:57 AM Terra Kendall RN Active documented in this encounter Plan of Treatment Upcoming Encounters Date Type Department Care Team (Late st Contact Info) Description 03/21/2025 11:00 AM CDT Office Visit [facility] [address] [place] [address] Vikki Gusman MD [address] [place] [address] Henry Torres PA-C [address] [place] [address] 03/21/2025 11:00 AM CDT Allied Health/Nurse Visit [facility] [address] [place] [address] Vikki Gusman MD [address] [place] [address] 04/22/2025 2:15 AM STUDENT SUPPORT SERVICES DIRECTOR Allied Health/Nurse Visit [facility] [address] [place] [address] Vikki Gusman MD [address] [place] [address] documented as of this encounter Goals Goal Patient Goal Type Associated Problems Recent Progress Patient-Stated? Author Patient will return to prior living situation and remain independent in ADLs upon discharge from hospital General Lorraine Seals RN documented as of this encounter Visit Diagnoses Not on filedocumented in this encounter Care Teams Packing Line Operator Relationship Specialty Start Date [place] [address] PCP - General FAMILY PRACTICE 06/25/21 11/17/23 None, ProviderMD PCP - General UNKNOWN PHYSICIAN SPECIALTY 11/18/23 04/13/24 [place] [address] PCP - General NURSE PRACTITIONER 04/14/24 Martell Newberry MD Alternative Energy Technician INTERVENTIONAL CARDIOLOGY 10/19/19 [place] [phone] NURSE PRACTITIONER 11/22/22 Vikki Gusman MD [address] [place] [address] Consulting Physician CLINICAL CARDIAC ELECTROPHYSIOLOGY 09/08/23 documented as of this encounter
--- OUTSIDE RECORDS SUMMARY | 2025-01-17 18:12 | XMS_ITS | Clinical Summary ---
Author Organization [facility] Address [address] [place] [address] Care Team Providers Care Vp Scientific Name Role Phone Unavailable Primary Care Provider Unavailabl e Source Comments [facility],non-owned Affiliates and Associated Physician Practices is amultiple site organization consisting of ambulatory clinics and hospital sitesin [place], [place], [place] and [place]. This disclosure is being madepursuant to the Care Everywhere program and may not contain all information available regarding this patient. Last updated 18.[facility] [employer] Allergies Active Allergy Reactions Criticality Noted Date Comments Buspirone Shortness of Breath High 01/06/2023 Medications * Be aware that medications may not be up to date on this document. Alwaysverify current medications with the patient. latanoprost (Xalatan) 0.005 % ophthalmic solution Instill 1 (one) drop into both eyes at bedtime Active allopurinol (Zyloprim) 300 MG tablet Take 1 (one) tablet by mouth every 2 days Active lisinopril (Prinivil; Zestril) 20 MG tablet Take 1 (one) tablet by mouth once daily Active atorvastatin (Lipitor) 10 MG tablet Take 1 (one) tablet by mouth at bedtime Active tamsulosin (Flomax) 0.4 MG capsule Take 1 (one) capsule by mouth once daily At the same time every day after a meal. Active brimonidine (Alphagan) 0.2 % ophthalmic solution Instill 1 (one) drop into both eyes 2 times daily Active timolol maleate (Timoptic) 0.5 % ophthalmic solution Instill 1 (one) drop into both eyes every morning Active aspirin (Aspirin) 81 MG chew tablet Take 1 (one) tablet by mouth once daily 30 tablet 01/08/2023 Active cyanocobalamin (Cyanocobalamin ) 500 MCG tablet Take 1 (one) tablet by mouth once daily 30 tablet 01/08/2023 Active folic acid (Folvite) 1 MG tablet Take 1 (one) tablet by mouth once daily 30 tablet 01/07/2023 Active multivitamin daily tablet Take 1 (one) tablet by mouth once daily 01/08/2023 Active Active Problems Problem Noted Date Diagnosed Date HTN (hypertension) 01/06/2023 Acute respiratory failure with hypoxia 3 Fall 01/05/2023 Blood alcohol level of 40-59 mg/100 ml 3 Closed fracture of transvers e process of lumbar vertebra with routine healing 01/05/2023 Resolved Problems Problem Noted Date Diagnosed Date Resolved Date Seizures 01/05/2023 01/06/2023 Leukocytosis 01/05/2023 01/06/2023 Metabolic acidosis 01/05/2023 3 Respiratory acidosis 01/05/2023 023 Immunizations Immunization Administration Dates Next Due PNEUMOCOCCAL PCV20 CONJ VAC IM 01/07/2023(Deferr ed: Patient Refused) Social History Tobacco Use Types Packs/Day Years Used Date Smoking Tobacco: Every Day Cigarettes Smokeless Tobacco: Never Tobacco Cessation:Ready to Q uit: Not Asked; Counseling Given: Not Answered AUDIT-C Answer Date Recorded Q1: How often do you have a drink containing alc ohol? Monthly or less 01/06/2023 Q2: How many drinks containi ng alcohol do you have on a typical day when you are drinking? 1 or 2 01/06/2023 Q3: How often do you have si x or more drinks on one occasion? Never 01/06/2023 Overall Financial Resource Strain (CARDIA) Answe r Date Recorded How hard is it for you to pa y for the very basics like food, housing, medical care, and heating? Not hard at all 01/06/2023 [facility] Occupat ional Health - Occupational Stress Questionnaire Answer Date Recorded Do you feel stress - tense, restless, nervous, or anxious, or unable to sleep at night because your mind is troubled all the time - these days? Not at all 01/06/2023 Hunger Vital Sign Answer Date Recorded Within the past 12 months, y ou worried that your food would run out before you got the money to buy more. Never true 01/07/20 23 Within the past 12 months, t he food you bought just didn't last and you didn't have money to get more. Never true 01/06/2023 PRAPARE - Transportation Answer Date Re corded In the past 12 months, has l ack of transportation kept you from medical appointments or from getting medications? No 11/2022 In the past 12 months, has l ack of transportation kept you from meetings, work, or from getting things needed for daily living? No 01/06/2023 Housing Stability Vital Sign Answer Eugene e Recorded In the last 12 months, was t here a time when you were not able to pay the mortgage or rent on time? No 01/06/2023 In the last 12 months, how many places have you lived? 1 01/06/2023 In the last 12 months, was t here a time when you did not have a steady place to sleep or slept in a group home (including now)? No 01/06/2023 Sex and Gender Information Value Date Recorded Sex Assigned at Not on file Legal Sex Male 9:38 PM CDT Gender Identity Not on file Sexual Orientation Not on file Last Filed Vital Signs Vital Sign Reading Time Taken Comments Blood Pressure 154/104 01/07/2023 8:14 PM CDT Pulse 89 01/07/2023 8:14 PM CDT Temperature 36.8 C (98.2 F) 01/07/2023 8:14 PM CDT Respiratory Rate 20 01/07/2023 8:14 PM CDT Oxygen Saturation 98% 01/07/2023 8:14 PM CDT Inhaled Oxygen Concentration 32% 01/05/2023 2 :09 PM CDT Weight 93.5 kg (206 lb 1.6 oz) 01/07/2023 4:00 A M CDT Height 182.9 cm (6') 01/04/2023 9:49 PM CDT Body Mass Index 27.95 01/04/2023 9:49 PM CDT Plan of Treatment Health Maintenance Due Date Last Done Comments COLOGUARD (AGES 45-75) - COL ON CA SCREENING 1956 COLON MONITORING 1956 COLONOSCOPY - COLON CA SCREENING 1956 CT COLONOGRAPHY - COLON CA SCREENING 1956 Colorectal Cancer Screening 1956 FIT - COLON CA SCREENING 1956 FLEX SIG - COLON CA SCREENING 1956 HEPATITIS C SCREENING 06/19/1974 DTAP/TDAP/TD VACCINES (1 - Tdap) 1975 PNEUMOCOCCAL VACCINE 50+ (1 of 2 - PCV) 1975 ZOSTER VACCINE (1 of 2) 2006 Respiratory Syncytial Virus (RSV) Vaccine Pt: or over 60 yrs (1 - Risk 60-74 years 1-dose series) 2016 AAA SCREENING 2021 COVID-19 VACCINE (1 - 2023-2 5 season) 2024 DEPRESSION SCREENING 06/02/2024 MEDICARE AWV CALENDAR YEAR 2024 INFLUENZA VACCINE (#1) 2025 HEPATITIS B VACCINE Aged Out No longe r eligible based on patient's age to complete this topic HIB VACCINE Aged Out No longer eligi ble based on patient's age to complete this topic HPV VACCINE Aged Out No longer eligi ble based on patient's age to complete this topic MENINGOCOCCAL (Group B) VACC INE SHARED DECISION-MAKING Aged Out No longer eligibl e based on patient's age to complete this topic MENINGOCOCCAL GROUPS A/C/Y/W VACCINE Aged Out No longer eligible b ased on patient's age to complete this topic Insurance MEDICAID - [place] [employer] MANAGED MEDICARE ADV Advance Directives * Full Code (Latest Code Status on File) Date Activated Date Inactivated Comments 01/05/2023 3:49 AM 01/08/2023 12:15 AM
--- OUTSIDE RECORDS SUMMARY | 2025-01-17 18:12 | XMS_ITS | Encounter Summary ---
Author Organization [facility] Address [facility] [place] [address] Care Team Providers Care Gis Developer Name Role Phone Martell Newberry MD Unavailable [phone] Isela Falcon NP Unavailable Vikki Gusman MD Unavailable Mary Bronson Primary Care Provide r Reason for Visit * Reason Onset Date Comments Referral 01/13/2025 Encounter Details Date Type Department Care Team (Late st Contact Info) Description 01/13/2025 Telephone [facility] [address] [place] [address] Olayinka Blanco, DPM [address] [place] [address] Referral Social History Tobacco Use Types Packs/Day Years [...] from your doctor or pharmacy? Rarely 04/14/2024 [facility] Utilities Answer Date Recorded In the past 12 months has e electric, gas, oil, or water company threatened to shut off services in your [...] week 04/14/2024 How often do you attend [facility] or bahai services? 1 to 4 times per year 04/14/2024 Do you belong to any clubs o r organizations such as sikh groups, unions, fraternal or athletic groups, or [...] and heating? Not hard at all 07/27/2024 [facility] of Occupat ional Health - Occupational Stress [...] place to sleep or slept in a mcfp (including now)? No 05/14/2023 Housing Stability Vital Sign Answer Eugene e Recorded In the last 12 months, was t here a time when you were not able to pay the mortgage or rent on time? No 07/27/2024 In the past 12 months, how m any times have you moved where you were living? 0 07/27/2024 At any time in the past 12 m [facility], were you homeless or living in a mcfp (including now)? No 07/27/2024 Sex and Gender Information Value Date Recorded Sex Assigned at Male 07/25/2024 12:12 AM DEEP SEA DIVER Legal Sex Male 5:43 PM CDT Gender [...] R N Active documented in this encounter Progress Notes * Amber Combs Residential Door Unit Installer - 01/17/2025 3:12 PM CDT Referral sent to [facility] Neurology documented in this encounter Plan of Treatment Upcoming Encounters Date Type Department Care Team (Late st Contact Info) Description 03/21/2025 11:00 AM CDT Office Visit [facility] [address] [place] [address] Vikki Gusman MD [address] [place] [address] Henry Torres PA-C [address] [place] [address] [phone] 03/21/2025 11:00 AM CDT Allied Health/Nurse Visit [facility] [address] [place] [address] Vikki Gusman MD [address] [place] [address] 04/22/2025 2:15 AM DEEP SEA DIVER Allied Health/Nurse [facility] [address] [place] [address] Vikki Gusman MD [address] [place] [address] documented as of this encounter Goals Goal Patient Goal Type Associated Problems Recent Progress Patient-Stated? Author Patient will return to prior living situation and remain independent in ADLs upon discharge from hospital General Lorraine Parr RN documented as of this encounter Visit Diagnoses Not on filedocumented in this encounter Care Teams Gis Developer Relationship Specialty Start Date End Date Mary Bronson APNP [address] [place] [phone] PCP - General NURSE PRACTITIONER 04/14/24 Martell Newberry MD Department Store General Manager INTERVENTIONAL CARDIOLOGY 10/19/19 Isela Falcon NP NURSE PRACTITIONER 11/22/22 Vikki Gusman MD [address] [place] [address] Consulting Physician CLINICAL CARDIAC ELECTROPHYSIOLOGY 09/08/23 documented as of this encounter
[2025-01-17 18:14] VITALS: BP 140/103
--- OUTSIDE RECORDS SUMMARY | 2025-01-17 18:47 | XMS_ITS | Encounter Summary ---
Author Organization [facility] Address [facility] [place] [address] Care Team Providers Care Activity Therapy Teacher Name Role Phone Martell Newberry MD Unavailable [phone] Jakub Woodard DO Primary Care Provider [phone] Isela Falcon FISHING HAND Unavailable Vikki Gusman MD Unavailable None, Provider MD Primary Care Provider Unavaila Mary Venegas Primary Care Provide r Encounter Details Date Type Department Care Team (Late st Contact Info) Description 08/27/2023 Hospital Orders Only [place] Mixer Operator Pre/Post [address] [place] [address] Vikki Gusman MD [address] [place] [address] Social History Tobacco Use Types Packs/Day Years Used Date Smoking Tobacco: Every Day Cigarettes 0.5 30 Smokeless Tobacco: Never Alcohol Use Standard Drinks/Week Comments Yes 0 (1 standard drink = 0.6 oz pur e alcohol) rarely [facility] Utilities Answer Date Recorded In the past 12 months has e [employer], gas, oil, or water [employer] threatened to shut off services in your [...] place to sleep or slept in a longterm (including now)? No 05/14/2023 Sex and Gender Information Value Date Recorded Sex Assigned at Male 07/25/2024 12:12 AM SENIOR CONTROLS ANALYST Legal Sex Male 5:43 PM CDT Gender [...] Guzman RN Active * Do you have serious [...] Author Status No 05/14/2023 3:53 AM Katheryn Guzamn RN Active documented in this encounter Plan of Treatment Upcoming Encounters Date Type Department Care Team (Late st Contact Info) Description 03/21/2025 11:00 AM CDT Office Visit [facility] [address] [place] [address] Vikki Gusman MD [address] [place] [address] Henry Torres PA-C [address] [place] [address] 03/21/2025 11:00 AM CDT Allied Health/Nurse Visit [facility] [address] [place] [address] Vikki Gusman MD [address] [place] [address] 04/22/2025 2:15 AM SENIOR CONTROLS ANALYST Allied Health/Nurse Visit [facility] [address] [place] [address] Vikki Gusman MD [address] [place] [address] documented as of this encounter Goals Goal Patient Goal Type Associated Problems Recent Progress Patient-Stated? Author Patient will return to prior living situation and remain independent in ADLs upon discharge from hospital General No Lorraine Parr RN documented as of this encounter Visit Diagnoses Not on filedocumented in this encounter Care Teams Activity Therapy Teacher Relationship Specialty Start Date End [place] [address] PCP - General FAMILY PRACTICE 06/25/21 11/17/23 None, MD Zayra PCP - General UNKNOWN PHYSICIAN SPECIALTY 11/18/23 04/13/24 [place] [address] PCP - General NURSE PRACTITIONER 04/14/24 Martell Newberry MD Card Placer INTERVENTIONAL CARDIOLOGY 10/19/19 Isela Falcon, [place] [phone] NURSE PRACTITIONER 11/22/22 Vikki Gusman MD [address] [place] [address] Consulting Physician CLINICAL CARDIAC ELECTROPHYSIOLOGY 09/08/23 documented as of this encounter
--- OUTSIDE RECORDS SUMMARY | 2025-01-17 18:47 | XMS_ITS | Clinical Summary ---
Author Organization [facility] Address [address] [place] [address] Care Team Providers Care Dozer Operator Name Role Phone Martell Newberry MD Unavailable [phone] Isela Falcon NP Unavailable Vikki Gusman [...] ischemic attack) 05/04/2024 Acute CVA (cerebrovascular accident) ([facility] HH S/HCC) 04/14/2024 Implantable loop recorder present 12/11/2023 Transient neurological symptoms 07/24/2023 Syncope 07/24/2023 Hypertensive urgency 05/13/2023 Fall 01/05/2023 CAD (coronary artery disease) 12/16/2022 Lumbar strain 05/28/2022 Abnormal cardiovascular stress test 10/20/2019 Hyperlipidemia 10/20/2019 Hypertension 10/20/2019 Tobacco abuse 10/20/2019 Encounters Date Type Department Care Team Description 01/17/2025 Orders Only [facility] [address] [place] [address] Olayinka Blanco, SUSIE 01/13/2025 10:15 AM CDT Office Visit [facility] [address] [place] [address] Olayinka Blanco, DPSeamus Foot Injury; Numbness 01/13/2025 3:00 AM CDT Allied Health/Nurse Visit [facility] [address] [place] [address] Vikki Gusman MD 01/13/2025 Telephone [facility] [address] [place] [address] Olayinka Blanco, DPM Referral 01/13/2025 Travel 12/20/2024 Telephone [facility] [address] [place] [address] Vikki Gusman MD Reschedule 12/17/2024 Telephone [facility] [address] [place] [address] Vikki Gusman MD Appointment Reminder 12/10/2024 Orders Only [facility] [address] [place] [address] Olayinka Blanco DPM 12/09/2024 11:45 AM CDT Office Visit [facility] [address] [place] [address] Olayinka Blanco DPM Foot Pain 12/09/2024 Travel 11/30/2024 Orders Only [facility] [address] [place] [address] Vikki Gusman MD 11/29/2024 12:10 AM CDT - 11/29/2024 1:39 AM CDT Emergency [facility] [address] [place] [address] Kaiser Cortez DO Foot Pain (R foot) Discharge Disposition: Home or Self Care (Routine Discharge) 11/29/2024 Travel 10/29/2024 1:30 AM CDT Allied Health/Nurse [facility] [address] [place] [address] Vikki Gusman MD from Last 3 Months [...] from your doctor or pharmacy? Rarely 04/14/2024 [facility] Utilities Answer Date Recorded In the past 12 months has e [employer], gas, oil, or water [employer] threatened to shut off services in your [...] often do you attend chur ch or temple services? 1 to 4 times per year 04/14/2024 Do you belong to any clubs o r organizations such as restorationism groups, unions, fraternal or athletic groups, or [...] and heating? Not hard at all 07/27/2024 [facility] of Occupat ional Health - Occupational Stress [...] place to sleep or slept in a detention (including now)? No 05/14/2023 Housing Stability Vital Sign Answer Eugene e Recorded In the last 12 months, was t here a time when you were not able to pay the mortgage or rent on time? No 07/27/2024 In the past 12 months, how m any times have you moved where you were living? 0 07/27/2024 At any time in the past 12 m [facility], were you homeless or living in a detention (including now)? No 07/27/2024 Sex and Gender Information Value Date Recorded Sex Assigned at Male 07/25/2024 12:12 AM ROUGE PRESSER Legal Sex Male 5:43 PM CDT Gender [...] Description 03/21/2025 11:00 AM CDT Office Visit [facility] [address] [place] [address] Vikki Gusman MD [address] [place] [address] Henry Torres PA-C [address] [place] [address] 03/21/2025 11:00 AM CDT Allied Health/Nurse Visit [facility] [address] [place] [address] Vikki Gusman MD [address] [place] [address] 04/22/2025 2:15 AM ROUGE PRESSER Allied Health/Nurse Visit [facility] [address] [place] [address] Vikki Gusman MD [address] [place] [address] Health Maintenance Due Date Last [...] Parr RN Medical Devices Implanted Type Area Gauge Controller Device Identifier Shelf Expiration Date Model / Serial / Lot [employer] Lux-Dx- [id number] Implanted:04/0 10/2023 by Vikki Gusman MD (Quantity not on file) Implantable Loop Recorder [employer] 01/22/2025 [id number] / [id number] / Description:DX: Syncope Patch Archana. Vasc. Vascu-Guard 0.8cm X 8cm - [id number] Implanted:Qty: 1 on 05/04/2024 by Mukund Hernadez MD at [facility] Mesh [employer] [id number] 09/14/2025 [id number] / / [id number]- [id number] Agent Hemostatic Surgiflo 8 Ml Kit - [id number] Implanted:Qty: 1 on 05/04/2024 by Mukund Hernadez MD at [facility] Sealant Left: Neck [employer] 03/01/2025 [id number] / / [id number] Explanted Type Area Gauge Controller Device Identifier Shelf Expiration Date Model / Serial / Lot Kit Shunt [place] Carotid Artery Straight - [id number] Explanted:Qty: 1 on 05/04/2024 by Mukund Hernadez MD at [facility] Shunt [facility] [id number] / / Procedures Procedure Name Priority Date/Time Associated Diagnosis Comments MAGNESIUM STAT 11/29/2024 12:16 AM CDT LACTIC ACID W REFLEX (SEPSIS) STAT 11/29/2024 12:16 AM CDT COMPREHENSIVE METABOLIC PANEL STAT 11/29/2024 12:16 AM CDT CBC W/DIFF AUTOMATED STAT 11/29/2024 12:[address] ABD+PEL W CON STAT 05/13/2023 8:38 PM ROUGE PRESSER from Last 3 Months or Most Recently Relevant to Health Maintenance Results * LACTIC ACID W REFLEX (SEPSIS) (11/29/2024 12:16 AM CDT) LACTIC ACID VENOUS 0.9 0.4 - 2.0 MMOL/L 11/29/2024 12:50 AM CDT [facility] 11/29/2024 12:1 6 AM CDT Kaiser Cortez DO LABORATORY Final Result [facility] [address] [place] [address], * (ABNORMAL) COMPREHENSIVE METABOLIC PANEL (11/29/2024 12:16 AM CDT) SODIUM S/P/B 143 136 - 145 MMOL/L 11/29/2024 12:47 AM CDT [facility] POTASSIUM S/P/B 3.8 3.5 - 5.1 MMOL/L 11/29/2024 12:47 AM CDT [facility] CHLORIDE S/P/B 107 98 - 107 MMOL/L 11/29/2024 12:47 AM CDT [facility] CO2 30.1 21.0 - 32.0 MMOL/L 11/29/2024 12:47 AM CDT [facility] GLUCOSE 112(H) 70 - 99 MG/DL 11/29/2024 12:47 AM CDT [facility] Comment: FASTING GLUCOSE 100 TO 125 MG/DL IS CONSISTENT WITH IMPAIRED FASTING GLUCOSE. FASTING GLUCOSE >125 MG/DL IS CONSISTENT WITH DIABETES. RANDOM GLUCOSE >200 MG/DL WITH HYPERGLYCEMIC SYMPTOMS IS CONSISTENT WITH DIABETES. PER ADA GUIDELINES BUN 21 6 - 24 MG/DL 11/29/2024 12:47 AM CDT [facility] CREATININE S/P/B 1.05 0.70 - 1.30 MG/DL 11/29/2024 12:47 AM CDT [facility] CALCIUM S/P/B 9.2 8.4 - 10.5 MG/DL 11/29/2024 12:47 AM [facility] BILIRUBIN TOTAL S/P/B 0.3 0.2 - 1.0 MG/DL 11/29/2024 12:47 AM [facility] Comment: THIS ASSAY IS NOT RECOMMENDED FOR PATIENTS UNDERGOING TREATMENT WITH ELTROMBOPAG DUE TO THE POTENTIAL FOR FALSELY ELEVATED RESULTS. ALKALINE PHOSPHATASE S/P/B 75 45 - 115 U/L 11/29/2024 12:47 AM [facility] AST 11(L) 15 - 37 U/L 11/29/2024 12:47 AM [facility] ALT 19 16 - 63 U/L 11/29/2024 12:47 AM [facility] TOTAL PROTEIN S/P/B 6.5 6.4 - 8.2 G/DL 11/29/2024 12:47 AM [facility] ALBUMIN S/P/B 3.5 3.4 - 5.0 G/DL 11/29/2024 12:47 AM [facility] ANION GAP 5.9 5.0 - 15.0 MMOL/L 11/29/2024 12:47 AM [facility] OSMOLALITY (CALC) 300 MOSM/KG 025 12:47 AM [facility] Comment:REFERENCE RANGE NOT ESTABLISHED GFR ESTIMATE 77(L) >89 ML/MIN/1. 73 M2 11/29/2024 12:47 AM [facility] GFR NOTES GFR REFERENCE S: 11/29/2024 12:47 AM [facility] Comment: THE ESTIMATED GFR IS CALCULATED [...] CDT Kaiser Cortez DO LABORATORY Final Result [facility] [address] [place] [address], * (ABNORMAL) CBC W/DIFF AUTOMATED (11/29/2024 12:16 AM CDT) Pathologist [facility] WBC 6.60 4.00 - 10.80 x10'3/uL 11/29/2024 12:21 AM CDT [facility] RBC 4.14(L) 4.50 - 6.10 x10'6/uL 11/29/2024 12:21 AM CDT [facility] HGB 13.4 13.0 - 18.0 G/DL 11/29/2024 12:21 AM CDT [facility] HCT 38.6 37.0 - 52.0 % 11/29/2024 12:21 AM CDT [facility] MCV 93.2 78.0 - 100.0 FL 11/29/2024 12:21 AM CDT [facility] MCH 32.4(H) 27.0 - 31.0 PG 11/29/2024 12:21 AM CDT [facility] MCHC 34.7 33.0 - 36.0 G/DL 11/29/2024 12:21 AM CDT [facility] RDW 12.0 11.5 - 14.5 % 11/29/2024 12:21 AM CDT [facility] PLT 148(L) 150 - 350 x10'3/uL 11/29/2024 12:21 AM CDT [facility] MPV 9.9 7.4 - 10.4 FL 11/29/2024 12:21 AM CDT [facility] CBC COMMENT NORMAL REFERENCE RANGE NOT ESTABLISHED FOR THE PROPORTIONAL LEUKOCYTE DIFFERENTIAL. 11/29/2024 12:21 AM CDT [facility] NEUTROPHILS % 64.8 % 11/29/2024 12:21 AM CDT [facility] LYMPHOCYTES % 23.9 % 11/29/2024 12:21 AM CDT [facility] MONOCYTES % 7.6 % 11/29/2024 12:21 AM CDT [facility] EOSINOPHILS % 2.9 % 11/29/2024 12:21 AM CDT [facility] BASOPHILS % 0.6 % 11/29/2024 12:21 AM CDT [facility] IMMATURE GRANS % 0.2 % 11/30/19 12:21 AM CDT [facility] NRBC % 0.0 % 11/29/2024 12:21 AM CDT [facility] ABS. NEUTROPHILS 4.28 1.60 - 8.30 x10'3/uL 11/29/2024 12:21 AM CDT [facility] ABS. LYMPHOCYTES 1.58 0.80 - 4.70 x10'3/uL 11/29/2024 12:21 AM CDT [facility] ABS. MONOCYTES 0.50 0.00 - 1.50 x10'3/uL 11/29/2024 12:21 AM CDT [facility] ABS. EOSINOPHILS 0.19 0.00 - 0.40 x10'3/uL 11/29/2024 12:21 AM CDT [facility] ABS. BASOPHILS 0.04 0.00 - 0.20 x10'3/uL 11/29/2024 12:21 AM CDT [facility] ABS. IMMATURE GRANULOCYTES 0.01 0.00 - 0.03 x10'3/uL 11/29/2024 12:21 AM CDT [facility] ABS. NUCLEATED RBC'S 0.00 0.00 - 0.01 x10'3/uL 11/29/2024 12:21 AM CDT [facility] 11/29/2024 12:1 6 AM CDT Kaiser Cortez DO LABORATORY Final Result [facility] [address] [place] [address], * MAGNESIUM (11/29/2024 12:16 AM CDT) MAGNESIUM 1.8 1.8 - 2.4 MG/DL 11/29/2024 12:47 AM CDT [facility] 11/29/2024 12:1 6 AM CDT us Kaiser Cortez DO LABORATORY Final Result Performing Organization Address City/[facility] Co de Phone Number [facility] [address] [place] [address], * CT ABD+PEL W CON (05/13/2023 8:38 PM ROUGE PRESSER) Anatomical Region Laterality Modality Abdomen Computed Tomogra phy 05/13/2023 8:54 PM ROUGE PRESSER Impressions 05/13/2023 9:00 PM ROUGE PRESSER IMPRESSION: 1. CT findings compatible with acute proctitis. A follow-up colonoscopy is recommended following resolution of symptoms. 2. Scattered colonic diverticulosis without evidence of acute inflammation. 3. Prostatomegaly. Ordered By: HAWK LICEA Interpreted By: Yanet Hernandez MD, 05/13/2023 8:54 PM Narrative 05/13/2023 9:00 PM ROUGE PRESSER PROCEDURE: CT ABD+PEL W CON HISTORY: Periumbilical [...] Recently Relevant to Health Maintenance Insurance MEDICAID [facility] MEDICAID MEDICAID Advance Directives * Full [...] 1:10 PM 06/27/2021 5:37 PM Care Teams Dozer Operator Relationship Specialty Start Date End Date Mary Bronson APNP [address] [place] [address] PCP - General NURSE PRACTITIONER 04/14/24 Martell Newberry MD Roller INTERVENTIONAL CARDIOLOGY 10/19/19 Isela Falcon NP NURSE PRACTITIONER 11/22/22 Vikki Gusman MD [address] [place] [address] Consulting Physician CLINICAL CARDIAC ELECTROPHYSIOLOGY 09/08/23
--- OUTSIDE RECORDS SUMMARY | 2025-01-17 18:47 | XMS_ITS | Encounter Summary ---
Author Organization [facility] Address [facility] [place] [address] Care Team Providers Care Party Plan Sales Agent Name Role Phone Martell Newberry MD Unavailable [phone] Isela Falcon NP Unavailable Vikki Gusman MD Unavailable Mary Bronson Primary Care Provide r Reason for Visit * Reason Onset Date Comments Referral 01/13/2025 Encounter Details Date Type Department Care Team (Late st Contact Info) Description 01/13/2025 Telephone [facility] [address] [place] [address] Olayinka Blanco, DPM [address] [place] [address] Referral Social History Tobacco Use [...] from your doctor or pharmacy? Rarely 04/14/2024 [facility] Utilities Answer Date Recorded In the past [...] week 04/14/2024 How often do you attend [facility] or [facility] services? 1 to 4 times per year 04/14/2024 Do you belong to any clubs o r organizations such as buddhist groups, unions, fraternal or athletic groups, or [...] and heating? Not hard at all 07/27/2024 [facility] [place] of Occupat ional Health - Occupational Stress [...] place to sleep or slept in a penitentiary (including now)? No 05/14/2023 Housing Stability Vital Sign Answer Eugene e Recorded In the last 12 months, was t here a time when you were not able to pay the mortgage or rent on time? No 07/27/2024 In the past 12 months, how m any times have you moved where you were living? 0 07/27/2024 At any time in the past 12 m [facility], were you homeless or living in a penitentiary (including now)? No 07/27/2024 Sex and Gender Information Value Date Recorded Sex Assigned at Male 07/25/2024 12:12 AM CUSTOMS COMPLIANCE MANAGER Legal Sex Male 5:43 PM CDT Gender [...] this encounter Progress Notes * Amber Combs Childcare Provider - 01/17/2025 3:12 PM CDT Referral sent to [facility] Neurology documented in this encounter Plan of Treatment Upcoming Encounters Date Type Department Care Team (Late st Contact Info) Description 03/21/2025 11:00 AM CDT Office Visit [facility] [address] [place] [address] Vikki Gusman MD [address] [place] [address] Henry Torres PA-C [address] [place] [address] [phone] 03/21/2025 11:00 AM CDT Allied Health/Nurse Visit [facility] [address] [place] [address] Vikki Gusman MD [address] [place] [address] 04/22/2025 2:15 AM CUSTOMS COMPLIANCE MANAGER Allied Health/Nurse Visit [facility] [address] [place] [address] Vikki Gusman MD [address] [place] [address] documented as of this encounter Goals Goal Patient Goal Type Associated Problems Recent Progress Patient-Stated? Author Patient will return to prior living situation and remain independent in ADLs upon discharge from hospital General Lorraine Parr RN documented as of this encounter Visit Diagnoses Not on filedocumented in this encounter Care Teams Party Plan Sales Agent Relationship Specialty Start Date End Date Mary Bronson APNP [address] [place] [phone] PCP - General NURSE PRACTITIONER 04/14/24 Martell Newberry MD Liquor Establishment Manager INTERVENTIONAL CARDIOLOGY 10/19/19 Isela Falcon NP NURSE PRACTITIONER 11/22/22 Vikki Gusman MD [address] [place] [address] Consulting Physician CLINICAL CARDIAC ELECTROPHYSIOLOGY 09/08/23 documented as of this encounter
--- OUTSIDE RECORDS SUMMARY | 2025-01-17 18:47 | XMS_ITS | Encounter Summary ---
Author Organization [facility] Address Formerly [facility] [place] [address] Care Team Providers Care Returning Officer Name Role Phone Martell Newberry MD Unavailable [phone] Isela Falcon NP Unavailable Vikki Gusman MD [...] IV OFFICE/OUTPT VISIT,EST,LEVL V Olayinka Blanco, DPM [address] [place] [address] Phone: tel: fax: Referral ID Status Reason Start Date Expiration Date Visits Requested Visits Authorized [id number] New Request Specialty Services 01/17/2025 01/17/2026 1 1 Scheduling Instructions Referral to Neurology for tarsal tunnel and sciatica on the right side Encounter Details Date Type Department Care Team (Late st Contact Info) Description 01/17/2025 Orders Only [facility] [id number] [place] [address] Olayinka Blanco DPM [address] [place] [address] Social History Tobacco Use Types [...] from your doctor or pharmacy? Rarely 04/14/2024 [facility] Utilities Answer Date Recorded In the past 12 months has e [place], gas, oil, or water [employer] threatened to shut off services in your [...] How often do you attend chur or yarsani services? 1 to 4 times per year 04/14/2024 Do you belong to any clubs o r organizations such as scientology groups, unions, fraternal or athletic groups, or [...] and heating? Not hard at all 07/27/2024 [facility] - Occupational [...] place to sleep or slept in a custodial (including now)? No 05/14/2023 Housing Stability Vital Sign Answer Eugene e Recorded In the last 12 months, was t here a time when you were not able to pay the mortgage or rent on time? No 07/27/2024 In the past 12 months, how m any times have you moved where you were living? 0 07/27/2024 At any time in the past 12 m [facility], were you homeless or living in a custodial (including now)? No 07/27/2024 Sex and Gender Information Value Date Recorded Sex Assigned at Male 07/25/2024 12:12 AM TRIAL MANAGER Legal Sex Male 5:43 PM CDT [...] Description 03/21/2025 11:00 AM CDT [facility] [address] [place] [address] Vikki Gusman MD [address] [place] [phone] Henry Torres PA-C [address] [place] [phone] 03/21/2025 11:00 AM CDT Allied Health/Nurse Visit [facility] [address] [place] [phone] Vikki Gusman MD [address] [place] [address] 04/22/2025 2:15 AM TRIAL MANAGER Allied Health/Nurse Visit [facility] [address] [place] [phone] Vikki Gusman MD [address] [place] [phone] Scheduled Referrals Name Type Priority Associated Diagnoses Orde r Schedule Ambulatory referral to Neurology Referral Routine Tarsal tunnel syndrome of right side Ordered: 01/17/2025 documented as of this encounter Goals Goal Patient Goal Type Associated Problems Recent Progress Patient-Stated? Author Patient will return to prior living situation and remain independent in ADLs upon discharge from [facility] Lorraine Parr, RN documented as of this encounter Visit Diagnoses Diagnosis Tarsal tunnel syndrome of right side- Primary Tarsal tunnel syndrome documented in this encounter Care Teams Returning Officer Relationship Specialty Start Date End [place] [address] [place] [phone] PCP - General NURSE PRACTITIONER 04/14/24 Martell Newberry MD Insurance Claims Clerk INTERVENTIONAL CARDIOLOGY 10/19/19 Isela Falcon NP NURSE PRACTITIONER 11/22/22 Vikki Gusman MD [address] [place] [phone] Consulting Physician CLINICAL CARDIAC ELECTROPHYSIOLOGY 09/08/23 documented as of this encounter
--- OUTSIDE RECORDS SUMMARY | 2025-01-17 18:47 | XMS_ITS | Encounter Summary ---
Author Organization [facility] Address [facility] [place] [address] Care Team Providers Care Electrical Prospecting Engineer Name Role Phone Martell Newberry MD Unavailable [phone] Jakub Woodard DO Primary Care Provider [phone] Isela Falcon SUPERVISOR SHOW OPERATIONS Unavailable Vikki Gusman MD Unavailable None, Provider MD Primary Care Provider Unavaila Mary Venegas Primary Care Provide r Encounter Details Date Type Department Care Team (Late st Contact Info) Description 06/28/2021 Hospital Follow-up Call [facility] [address] [place] [address] Miri Chaudhary RN Social History Tobacco Use Types Packs/Day Years Used Date Smoking Tobacco: Every Day Cigarettes 0.5 30 Smokeless Tobacco: Never Alcohol Use Standard Drinks/Week Comments Yes 0 (1 standard drink = 0.6 oz pur e alcohol) rarely Sex and Gender Information Value Date Recorded Sex Assigned at Male 07/25/2024 12:12 AM CLINICAL NURSE EDUCATOR Legal Sex Male 5:43 PM CDT Gender Identity Not on file Sexual Orientation Not on file COVID-19 Exposure Response Date Recorded In the last month, have you been in contact with someone who was confirmed or suspected to have Coronavirus / COVID-19? No / Unsure 06/26/2021 11:52 AM CLINICAL NURSE EDUCATOR documented as of this encounter Functional Status * RETIRED Are you deaf or do you have serious difficulty hearing Answer Date of Assessment Author Status Yes 06/26/2021 11:57 AM CLINICAL NURSE EDUCATOR Acti ve * RETIRED Are you blind or do you have serious difficulty seeing, even when wearing glasses? Answer Date of Assessment Author Status No 06/26/2021 11:57 AM CLINICAL NURSE EDUCATOR Acti ve * Do you have serious [...] Description 03/21/2025 11:00 AM CDT Office Visit [facility] [address] [place] [address] Vikki Gusman MD [address] [place] [address] Henry Torres PA-C [address] [place] [address] 03/21/2025 11:00 AM CDT Allied Health/Nurse Visit [facility] [address] [place] [address] Vikki Gusman MD [address] [place] [address] 04/22/2025 2:15 AM CLINICAL NURSE EDUCATOR Allied Health/Nurse Visit [facility] [address] [place] [address] Vikki Gusman MD [address] [place] [address] documented as of this encounter Goals Goal Patient Goal Type Associated Problems Recent Progress Patient-Stated? Author Patient will return to prior living situation and remain independent in ADLs upon discharge from hospital General Lorraine Seals RN documented as of this encounter Visit Diagnoses Not on filedocumented in this encounter Care Teams Electrical Prospecting Engineer Relationship Specialty Start Date End Date [place] [address] PCP - General FAMILY PRACTICE 06/25/21 11/17/23 None, ProviderMD PCP - General UNKNOWN PHYSICIAN SPECIALTY 11/18/23 04/13/24 [place] [address] PCP - General NURSE PRACTITIONER 04/14/24 Martell Newberry MD Hand Mica Plate Layer INTERVENTIONAL CARDIOLOGY 10/19/19 [place] [phone] NURSE PRACTITIONER 11/22/22 Vikki Gusman MD [address] [place] [phone] Consulting Physician CLINICAL CARDIAC ELECTROPHYSIOLOGY 09/08/23 documented as of this encounter
--- OUTSIDE RECORDS SUMMARY | 2025-01-17 18:47 | XMS_ITS | Clinical Summary ---
Author Organization [facility] Address [address] [place] [address] Care Team Providers Care Hog Slaughterer Name Role Phone Unavailable Primary Care Provider Unavailabl e Source Comments [facility],non-owned Affiliates and Associated Physician Practices is amultiple site organization consisting of ambulatory clinics and hospital sitesin [place], [place], [place] and [place]. This disclosure is being madepursuant to the Care Everywhere program and may not contain all information available regarding this patient. Last updated 18.[facility] Kimeltu Allergies Active Allergy Reactions Criticality Noted Date [...] and heating? Not hard at all 01/06/2023 [facility] - Occupational Stress [...] slept in a penitentiary (including now)? No 01/06/2023 Sex and Gender [...] complete this topic Insurance [place] [address] UHC MANAGED MEDICARE ADV Advance Directives * Full Code (Latest Code Status on File) Date Activated Date Inactivated Comments 01/05/2023 3:49 AM 01/08/2023 12:15 AM
--- NOTE | 2025-01-17 19:32 | ED_ITS ---
HPI - Skin/Abscess/Foreign Bdy General Chief complaint: Skin/Abscess/Foreign Body Stated complaint: rt.foot pain Source: patient Mode of arrival: ambulatory Limitations: no limitations History of Present Illness HPI narrative: patient is a 69-year-old male with a right foot pain and swelling with redness over the past few weeks. It is getting progressively worse. He has seen a full charge bookkeeper. Software Quality Specialist said it is not gout or neuropathy. There is expansion of the redness from the bottom of the foot now to the sides. MD complaint: rash Onset (ago): week(s) ( Two) Location: RLE and R foot ( plantar surface) Severity: moderate Severity scale (1-10): 5 Quality: sharp and constant Pain Consistency: constant Relieving factors: none Exacerbating factors: none Context: other ( patient has progressively worse right foot plantar surface redness and pain over the past 2 weeks) Associated symptoms: denies other symptoms Treatments prior to arrival: corticosteroid and other ( topical steroid) Related Data Home Medications ?Medication ?Instructions ?Recorded ?Confirmed ?Last Taken ?Type atorvastatin 10 mg tablet (Lipitor) 10 mg PO DAILY 04/17/24 01/17/25 Unknown History clopidogrel 75 mg tablet (Plavix) 75 mg PO DAILY 04/17/24 01/17/25 Unknown History Men's One Daily 1 tablet PO DAILY 04/22/24 01/17/25 Unknown History Vitamin B-12 500 mg PO DAILY 04/22/24 01/17/25 Unknown History allopurinol 300 mg tablet 300 mg PO EVERY OTHER DAY 04/22/24 01/17/25 Unknown History aspirin 81 mg tablet,delayed 81 mg PO DAILY 04/22/24 01/17/25 Unknown History release brimonidine 0.2 % eye drops 1 drp EACH EYE DAILY 04/22/24 01/17/25 Unknown History gabapentin 300 mg capsule 300 mg PO BID 04/22/24 01/17/25 Unknown History (Neurontin) gabapentin 300 mg capsule 600 mg PO HS 04/22/24 01/17/25 Unknown History (Neurontin) lisinopril 40 mg tablet 40 mg PO DAILY 04/22/24 01/17/25 Unknown History magnesium 250 mg tablet 250 mg PO DAILY 04/22/24 01/17/25 Unknown History potassium 99 mg PO DAILY 04/22/24 01/17/25 Unknown History prazosin 1 mg capsule 1 mg PO HS 04/22/24 01/17/25 Unknown History prazosin 2 mg capsule 2 mg PO HS 04/22/24 01/17/25 Unknown History tamsulosin 0.4 mg capsule 0.4 mg PO DAILY 04/22/24 01/17/25 Unknown History timolol maleate 0.25 % eye drops 1 drp EACH EYE DAILY 04/22/24 01/17/25 Unknown History Allergies Allergy/AdvReac Type Severity Reaction Status Date / Time buspirone (From BuSpar) Allergy Unknown Verified 01/17/25 18:52 poison sumac extract Allergy Hives Verified 01/17/25 18:52 terbinafine (From Lamisil) Allergy Swelling Verified 01/17/25 18:52 Review of Systems 2 Review of Systems: All systems reviewed & are unremarkable except as noted in HPI and below Constitutional: Constitutional: Reports no additional constitutional complaints Eyes: Eyes: Reports no additional eye complaints ENT: Reports system reviewed and no additional complaints, except as documented Cardiovascular: Cardiovascular: Reports no additional cardiovascular complaints Respiratory: Respiratory: Reports no additional respiratory complaints Gastrointestinal: Gastrointestinal: Reports no additional gastrointestinal complaints Genitourinary: Genitourinary: Reports no additional male genitourinary complaints Musculoskeletal: Musculoskeletal: Reports no additional musculoskeletal complaints Integumentary/Breasts: Skin/Breast: Reports system reviewed and no additional complaints, except as docu Neurologic: Reports system reviewed and no additional complaints, except as documented Psychiatric: Psychiatric: Reports no additional psychiatric complaints Endocrine: Endocrine: Reports no additional endocrine complaints Hematologic/Lymphatic: Hematologic/Lymphatic: Reports no additional hematologic/lymphatic complaints Allergic/Immunologic: Allergic/Immunologic: Reports no additional allergic/immunologic complaints [facility] Past Medical History Medical History TIA (transient ischemic attack) CAD (coronary artery disease) Social History Social History Social History: Light smoker. No history of alcohol use. Exam 2 Const: General: healthy appearing Nutritional Appearance: well nourished Orientation/consciousness: patient oriented x3 HENMT: Head: normal to inspection Ears: external ears normal F mariam/Nose/Sinus: Normal external nose present Eyes: Conjunctivae: conjunctivae normal Pupils: Equal, round and reactive pupils present EOM: EOMs intact bilaterally Neck: Neck: normal visual inspection Chest: Chest palpation & inspection: normal inspection of the chest Resp: Effort & Inspection: normal respiratory effort and not labored A uscultation: clear to auscultation bilaterally and no crackles Cardio: Rate: regular rate Rhythm: regular rhythm Heart sounds: no murmurs GI: Inspection: non-distended GI Palp: Yes Soft to palpation and No Tenderness to palpation present (GI) Auscultation: normal bowel sounds : General: Yes bladder normal to palpation Back/Spine/Pelvis: Back: no CVA tenderness Skin: General skin exam: normal color Rashes: rash noted Wounds: no wounds Other: right foot plantar surface has a complete plantar surface covering of erythema and swelling tissue to include the toes and web spaces; the erythema is starting to creep up the sides of lateral and medial aspect of the foot Neuro: General: patient oriented x3, moves all extremities and no meningeal signs Extrem: General: normal to inspection Psych: Mental Status: mental status grossly normal Affect: normal affect Attitude: cooperative Course Vital Signs Vital signs: Vital Signs Temperature 36.8 C 01/17/25 18:10 Pulse Rate 74 01/17/25 18:10 Respiratory Rate 20 01/17/25 18:10 Blood Pressure 140/103 H 01/17/25 18:10 Pulse Oximetry 97 01/17/25 18:10 Oxygen Delivery Room Air 01/17/25 18:10 Temperature 36.4 C 01/17/25 21:24 Pulse Rate 56 L 01/17/25 21:24 Respiratory Rate 18 01/17/25 21:24 Blood Pressure 139/93 H 01/17/25 21:24 Pulse Oximetry 98 01/17/25 21:24 Oxygen Delivery Room Air 01/17/25 21:24 MDM - Skin/Abscess/Foreign Bdy MDM Narrative Medical decision making narrative: patient is a 69-year-old male with a right foot plantar surface erythema over the past 2 weeks getting worse over time. We will check labs to look for cellulitis. We will get an x-ray for osteomyelitis rule out. Lab Data Attestation: I reviewed the patient's lab results. 01/17/25 19:56 01/17/25 19:56 Labs: Lab Results 01/17/25 Range/Units 19:56 WBC 7.6 (4.8-10.8) K/mm3 RBC 4.71 (4.70-6.10) M/mm3 Hgb 15.1 (12.4-15.3) g/dL Hct 44.8 (37.0-46.0) % MCV 95.1 (78.0-102.0) fL MCH 32.1 H (27.0-31.0) pg MCHC 33.7 (32-36) g/dL RDW 11.9 (11.6-14.4) % Plt Count 180 (150-420) K/mm3 MPV 10.0 (8.7-11.0) fl Immature Gran % (Auto) 0.4 H (0.0-0.0) % Neut % (Auto) 69.0 (50.0-70.0) % Lymph % (Auto) 21.3 (18.0-42.0) % Weber % (Auto) 6.7 (2.0-11.0) % Eos % (Auto) 2.1 (1.0-6.0) % Baso % (Auto) 0.5 (0.0-1.0) % Lymph # (Auto) 1.62 (1.10-4.50) K/mm3 Weber # (Auto) 0.51 (0.10-0.90) K/mm3 Eos # (Auto) 0.16 (0.02-0.50) K/mm3 Baso # (Auto) 0.04 (0.00-0.10) K/mm3 Abs Immat Gran (auto) 0.03 H (0.00-0.00) K/mm3 Absolute Neuts (auto) 5.26 (1.70-7.20) K/mm3 Absolute Nucleated RBC 0.00 (0.00-0.00) K/mm3 Nucleated RBC % 0.0 (0-0.0) % Sodium 143 (137-145) mmol/L Potassium 4.2 (3.4-5.0) mmol/L Chloride 103 (98-107) mmol/L Carbon Dioxide 32 H (22-30) mmol/L Anion Gap 8 (4-12) mmol/L BUN 16 (9-20) mg/dL Creatinine 1.01 (0.7-1.3) mg/dL Estim Creat Clear Calc 76 ml/min Estimated GFR > 60 (59 - ) Glucose 93 (65-110) mg/dL Calculated Osmolality 297 H (285-295) mOsm/kg Lactic Acid 0.9 (0.4-2.0) mmol/L Calcium 10.1 (8.4-10.2) mg/dL Total Bilirubin 0.8 (0.2-1.3) mg/dL AST 23 (17-59) U/L ALT 21 (6-50) U/L Alkaline Phosphatase 68 (38-126) U/L C-Reactive Protein < 0.5 (<1.0) mg/dL Total Protein 7.7 (6.3-8.2) g/dL Albumin 4.9 (3.5-5.1) g/dL Imaging Data Attestation: I personally reviewed and interpreted this imaging study as follows: Radiologist's impression: X-ray right foot is negative for acute process Discharge Plan Discharge Clinical Impression: Cellulitis of foot Patient Disposition: Home Condition: Stable Instructions: Antibiotic Form, Cellulitis (ED) Additional Instructions: Please follow-up with the primary doctor in the next week. Patient Language: Faroese Prescriptions: New sulfamethoxazole-trimethoprim [Bactrim DS] 800-160 mg tablet 1 tablet PO BID 10 Days Qty: 20 0RF No Action atorvastatin [Lipitor] 10 mg tablet 10 mg PO DAILY clopidogrel [Plavix] 75 mg tablet 75 mg PO DAILY prazosin 1 mg capsule 1 mg PO HS aspirin [Adult Aspirin EC Low Strength] 81 mg Tablet,Delayed Release (Dr/Ec) 81 mg PO DAILY tamsulosin 0.4 mg capsule 0.4 mg PO DAILY timolol maleate 0.25 % drops 1 drp EACH EYE DAILY brimonidine 0.2 % drops 1 drp EACH EYE DAILY gabapentin [Neurontin] 300 mg capsule 600 mg PO HS gabapentin [Neurontin] 300 mg capsule 300 mg PO BID Rx Instructions: take one capsule in the morning and one at noon allopurinol 300 mg tablet 300 mg PO EVERY OTHER DAY magnesium 250 mg Tablet 250 mg PO DAILY lisinopril 40 mg tablet 40 mg PO DAILY prazosin 2 mg capsule 2 mg PO HS Men's One Daily 1 tablet PO DAILY Vitamin B-12 500 mg PO DAILY potassium capsule 99 mg PO DAILY Follow-up/Referrals: UNKNOWN,DOCTOR [Primary Care Provider] - Time of Disposition: 21:45
[2025-01-17 20:25] LABS: Hematocrit 44.8 % (37.0-46.0); Hemoglobin 15.1 g/dL (12.4-15.3); Immature Granulocyte Percent A 0.4 % (0.0-0.0); Lymphocytes Absolute Auto 1.62 K/mm3 (1.10-4.50); Mean Corpuscular HGB Conc 33.7 g/dL (32-36); Mean Corpuscular Hemoglobin 32.1 pg (27.0-31.0); Mean Corpuscular Volume 95.1 fL (78.0-102.0); Nucleated Red Blood Cells Absolute Auto 0.00 K/mm3 (0.00-0.00); Nucleated Red Blood Cells Perc 0.0 % (0-0.0); Platelet Count Result 180 K/mm3 (150-420); Red Blood Count 4.71 M/mm3 (4.70-6.10); White Blood Count 7.6 K/mm3 (4.8-10.8)
[2025-01-17 20:48] LABS: Alanine Aminotransferase 21 U/L (6-50); Albumin Level 4.9 g/dL (3.5-5.1); Alkaline Phosphatase 68 U/L (38-126); Anion Gap 8 mmol/L (4-12); Aspartate Amino Transferase 23 U/L (17-59); Bilirubin,Total 0.8 mg/dL (0.2-1.3); Blood Urea Nitrogen 16 mg/dL (9-20); CRP < 0.5 mg/dL (<1.0); Calcium 10.1 mg/dL (8.4-10.2); Carbon Dioxide 32 mmol/L (22-30); Chloride 103 mmol/L (98-107); Estimated CRCL calculation 76 ml/min; Estimated Glomerular Filt Rate > 60; Glucose 93 mg/dL (65-110); Osmolality Calculated 297 mOsm/kg (285-295); Potassium 4.2 mmol/L (3.4-5.0); Sodium 143 mmol/L (137-145); Total Protein 7.7 g/dL (6.3-8.2)
[2025-01-17 21:24] VITALS: BP 139/93; PULSE 56; RESP 18; TEMP 36.4; O2SAT 98
[2025-01-17] MEDS: cefTRIAXone 1 GM, LIDOCAINE 1% LOCAL INJ 2.1 ML IM (21:49)
--- NOTE | 2025-01-21 12:59 | PC.NURSE ---
Preliminary blood culture report; no growth in 24 hours.
--- NOTE | 2025-01-22 13:45 | PC.NURSE ---
preliminary blood cultures x2 reviewed. no growth in 48 hours.
--- NOTE | 2025-01-25 13:04 | PC.NURSE ---
BLOOD CULTURE FINAL RESULTS: NO GROWTH. MD MARTHA NO NEW ORDERS FOR THIS PT.
== END 2025-01-17 22:20 | disposition home or self-care (01) ==
PROVIDERS: Emergency Provider Emergency Medicine
DX: L03.115 Cellulitis of right lower limb (principal); I25.10 Atherosclerotic heart disease of native coronary artery without angina pectoris; Z79.899 Other long term (current) drug therapy; Z79.82 Long term (current) use of aspirin; Z86.73 Personal history of transient ischemic attack (TIA), and cerebral infarction without residual deficits
CPT/HCPCS: 36415; 73630; 80053; 83605; 85025; 86140; 87040; 96372; 99283; J0696; J2003

== ENCOUNTER 2025-03-16 17:18 | Emergency (ER) | payer MEDICARE, MEDICAID, SELFPAY ==
[2025-03-16 17:19] VITALS: BP 135/94; PULSE 89; RESP 20; TEMP 36.6; O2SAT 96
--- NOTE | 2025-03-16 17:25 | ED.SOB ---
HPI - SOB/Dyspnea General Chief Complaint: Skin/Abscess/Foreign Body Stated Complaint: rash, burning and bumps in groin area Time Seen by Provider: 03/16/25 17:25 Related Data Home Medications ?Medication ?Instructions ?Recorded ?Confirmed ?Last Taken ?Type atorvastatin 10 mg tablet (Lipitor) 10 mg PO DAILY 04/17/24 01/17/25 Unknown History clopidogrel 75 mg tablet (Plavix) 75 mg PO DAILY 04/17/24 01/17/25 Unknown History Men's One Daily 1 tablet PO DAILY 04/22/24 01/17/25 Unknown History Vitamin B-12 500 mg PO DAILY 04/22/24 01/17/25 Unknown History allopurinol 300 mg tablet 300 mg PO EVERY OTHER DAY 04/22/24 01/17/25 Unknown History aspirin 81 mg tablet,delayed 81 mg PO DAILY 04/22/24 01/17/25 Unknown History release brimonidine 0.2 % eye drops 1 drp EACH EYE DAILY 04/22/24 01/17/25 Unknown History gabapentin 300 mg capsule 300 mg PO BID 04/22/24 01/17/25 Unknown History (Neurontin) gabapentin 300 mg capsule 600 mg PO HS 04/22/24 01/17/25 Unknown History (Neurontin) lisinopril 40 mg tablet 40 mg PO DAILY 04/22/24 01/17/25 Unknown History magnesium 250 mg tablet 250 mg PO DAILY 04/22/24 01/17/25 Unknown History potassium 99 mg PO DAILY 04/22/24 01/17/25 Unknown History prazosin 1 mg capsule 1 mg PO HS 04/22/24 01/17/25 Unknown History prazosin 2 mg capsule 2 mg PO HS 04/22/24 01/17/25 Unknown History tamsulosin 0.4 mg capsule 0.4 mg PO DAILY 04/22/24 01/17/25 Unknown History timolol maleate 0.25 % eye drops 1 drp EACH EYE DAILY 04/22/24 01/17/25 Unknown History Allergies Allergy/AdvReac Type Severity Reaction Status Date / Time buspirone (From BuSpar) Allergy Unknown Verified 01/17/25 18:52 poison sumac extract Allergy Hives Verified 01/17/25 18:52 terbinafine (From Lamisil) Allergy Swelling Verified 01/17/25 18:52 [facility] Past Medical History Medical History TIA (transient ischemic attack) CAD (coronary artery disease) Social History Social History Social History: Light smoker. No history of alcohol use. Course Vital Signs Vital signs: Vital Signs Temperature 36.6 C 03/16/25 17:19 Pulse Rate 89 03/16/25 17:19 Respiratory Rate 20 03/16/25 17:19 Blood Pressure 135/94 H 03/16/25 17:19 Pulse Oximetry 96 03/16/25 17:19 Oxygen Delivery Room Air 03/16/25 17:19 Temperature 36.6 C 03/16/25 17:19 Pulse Rate 89 03/16/25 17:19 Respiratory Rate 20 03/16/25 17:19 Blood Pressure 135/94 H 03/16/25 17:19 Pulse Oximetry 96 03/16/25 17:19 Oxygen Delivery Room Air 03/16/25 17:19 Discharge Plan Discharge Clinical Impression: CAD (coronary artery disease) Patient Disposition: Home Condition: Stable Instructions: Antibiotic Form Patient Language: Bahamian Prescriptions: No Action atorvastatin [Lipitor] 10 mg tablet 10 mg PO DAILY clopidogrel [Plavix] 75 mg tablet 75 mg PO DAILY prazosin 1 mg capsule 1 mg PO HS aspirin [Adult Aspirin EC Low Strength] 81 mg Tablet,Delayed Release (Dr/Ec) 81 mg PO DAILY tamsulosin 0.4 mg capsule 0.4 mg PO DAILY timolol maleate 0.25 % drops 1 drp EACH EYE DAILY brimonidine 0.2 % drops 1 drp EACH EYE DAILY gabapentin [Neurontin] 300 mg capsule 600 mg PO HS gabapentin [Neurontin] 300 mg capsule 300 mg PO BID Rx Instructions: take one capsule in the morning and one at noon allopurinol 300 mg tablet 300 mg PO EVERY OTHER DAY magnesium 250 mg Tablet 250 mg PO DAILY lisinopril 40 mg tablet 40 mg PO DAILY prazosin 2 mg capsule 2 mg PO HS Men's One Daily 1 tablet PO DAILY Vitamin B-12 500 mg PO DAILY potassium capsule 99 mg PO DAILY sulfamethoxazole-trimethoprim [Bactrim DS] 800-160 mg tablet 1 tablet PO BID 10 Days Qty: 20 0RF Follow-up/Referrals: UNKNOWN,DOCTOR [Primary Care Provider]
--- NOTE | 2025-03-16 17:30 | ED.SKABFB ---
HPI - Skin/Abscess/Foreign Bdy General Chief complaint: Skin/Abscess/Foreign Body Stated complaint: rash, burning and bumps in groin area Time Seen by Provider: 03/16/25 17:25 Source: patient and family Mode of arrival: ambulatory Limitations: no limitations History of Present Illness HPI narrative: Patient is a 69-year-old male with a left groin rash for the past few days. Patient was concerned about it as it is growing in size. It is causing some discomfort. MD complaint: rash Onset (ago): day(s) (Three) Location: genitals (Left groin) Severity: moderate Severity scale (1-10): 3 Quality: burning Pain Consistency: constant Relieving factors: none Exacerbating factors: none Context: other (Patient has a left groin rash for the past 3 days) Associated symptoms: denies other symptoms Treatments prior to arrival: none Related Data Home Medications ?Medication ?Instructions ?Recorded ?Confirmed ?Last Taken ?Type atorvastatin 10 mg tablet (Lipitor) 10 mg PO DAILY 04/17/24 01/17/25 Unknown History clopidogrel 75 mg tablet (Plavix) 75 mg PO DAILY 04/17/24 01/17/25 Unknown History Men's One Daily 1 tablet PO DAILY 04/22/24 01/17/25 Unknown History Vitamin B-12 500 mg PO DAILY 04/22/24 01/17/25 Unknown History allopurinol 300 mg tablet 300 mg PO EVERY OTHER DAY 04/22/24 01/17/25 Unknown History aspirin 81 mg tablet,delayed 81 mg PO DAILY 04/22/24 01/17/25 Unknown History release brimonidine 0.2 % eye drops 1 drp EACH EYE DAILY 04/22/24 01/17/25 Unknown History gabapentin 300 mg capsule 300 mg PO BID 04/22/24 01/17/25 Unknown History (Neurontin) gabapentin 300 mg capsule 600 mg PO HS 04/22/24 01/17/25 Unknown History (Neurontin) lisinopril 40 mg tablet 40 mg PO DAILY 04/22/24 01/17/25 Unknown History magnesium 250 mg tablet 250 mg PO DAILY 04/22/24 01/17/25 Unknown History potassium 99 mg PO DAILY 04/22/24 01/17/25 Unknown History prazosin 1 mg capsule 1 mg PO HS 04/22/24 01/17/25 Unknown History prazosin 2 mg capsule 2 mg PO HS 04/22/24 01/17/25 Unknown History tamsulosin 0.4 mg capsule 0.4 mg PO DAILY 04/22/24 01/17/25 Unknown History timolol maleate 0.25 % eye drops 1 drp EACH EYE DAILY 04/22/24 01/17/25 Unknown History Allergies Allergy/AdvReac Type Severity Reaction Status Date / Time buspirone (From BuSpar) Allergy Unknown Verified 03/16/25 17:32 poison sumac extract Allergy Hives Verified 03/16/25 17:32 terbinafine (From Lamisil) Allergy Swelling Verified 03/16/25 17:32 Review of Systems Review of Systems: All systems reviewed & are unremarkable except as noted in HPI and below Constitutional: Constitutional: Reports no additional constitutional complaints Eyes: Eyes: Reports no additional eye complaints ENT: Reports system reviewed and no additional complaints, except as documented Cardiovascular: Cardiovascular: Reports no additional cardiovascular complaints Respiratory: Respiratory: Reports no additional respiratory complaints Gastrointestinal: Gastrointestinal: Reports no additional gastrointestinal complaints Genitourinary: Genitourinary: Reports no additional male genitourinary complaints Musculoskeletal: Musculoskeletal: Reports no additional musculoskeletal complaints Integumentary/Breasts: Skin/Breast: Reports system reviewed and no additional complaints, except as docu Neurologic: Reports system reviewed and no additional complaints, except as documented Psychiatric: Psychiatric: Reports no additional psychiatric complaints Endocrine: Endocrine: Reports no additional endocrine complaints Hematologic/Lymphatic: Hematologic/Lymphatic: Reports no additional hematologic/lymphatic complaints Allergic/Immunologic: Allergic/Immunologic: Reports no additional allergic/immunologic complaints [facility] Past Medical History Medical History TIA (transient ischemic attack) CAD (coronary artery disease) Social History Social History Social History: Light smoker. No history of alcohol use. Exam Const: General: healthy appearing Nutritional Appearance: well nourished Orientation/consciousness: patient oriented x3 HENMT: Head: normal to inspection Ears: external ears normal Face/Nose/Sinus: Normal external nose present Eyes: Conjunctivae: conjunctivae normal Pupils: Equal, round and reactive pupils present EOM: EOMs intact bilaterally Neck: Neck: normal visual inspection Chest: Chest palpation & inspection: normal inspection of the chest Resp: Effort & Inspection: normal respiratory effort and not labored Auscultation: clear to auscultation bilaterally and no crackles Cardio: Rate: regular rate Rhythm: regular rhythm Heart sounds: no murmurs GI: Inspection: non-distended Auscultation: normal bowel sounds : General: Yes bladder normal to palpation Back/Spine/Pelvis: Back: no CVA tenderness Skin: General skin exam: normal color Rashes: rash noted Wounds: no wounds Other: Left groin has satellite type lesions with a red rash erythematous appearance of fungus Neuro: General: patient oriented x3, moves all extremities and no meningeal signs Extrem: General: normal to inspection Psych: Mental Status: mental status grossly normal Affect: normal affect Attitude: cooperative Course Vital Signs Vital signs: Vital Signs Temperature 36.6 C 03/16/25 17:19 Pulse Rate 89 03/16/25 17:19 Respiratory Rate 20 03/16/25 17:19 Blood Pressure 135/94 H 03/16/25 17:19 Pulse Oximetry 96 03/16/25 17:19 Oxygen Delivery Room Air 03/16/25 17:19 Temperature 36.6 C 03/16/25 17:19 Pulse Rate 89 03/16/25 17:19 Respiratory Rate 20 03/16/25 17:19 Blood Pressure 135/94 H 03/16/25 17:19 Pulse Oximetry 96 03/16/25 17:19 Oxygen Delivery Room Air 03/16/25 17:19 MDM - Skin/Abscess/Foreign Bdy MDM Narrative Medical decision making narrative: Patient is a 69-year-old male with a left groin rash. Antifungal steroid cream. Oral anti fungal for 3 days. Discharge Plan Discharge Clinical Impression: Tinea cruris Patient Disposition: Home Condition: Stable Instructions: Skin Yeast Infection (ED) Patient Language: Jamaican Prescriptions: New fluconazole 150 mg tablet 150 mg PO DAILY 3 Days Qty: 3 0RF clotrimazole-betamethasone 1-0.05 % cream 1 applic topical BID PRN (Reason: rash) Qty: 15 0RF No Action atorvastatin [Lipitor] 10 mg tablet 10 mg PO DAILY clopidogrel [Plavix] 75 mg tablet 75 mg PO DAILY prazosin 1 mg capsule 1 mg PO HS aspirin [Adult Aspirin EC Low Strength] 81 mg Tablet,Delayed Release (Dr/Ec) 81 mg PO DAILY tamsulosin 0.4 mg capsule 0.4 mg PO DAILY timolol maleate 0.25 % drops 1 drp EACH EYE DAILY brimonidine 0.2 % drops 1 drp EACH EYE DAILY gabapentin [Neurontin] 300 mg capsule 600 mg PO HS gabapentin [Neurontin] 300 mg capsule 300 mg PO BID Rx Instructions: take one capsule in the morning and one at noon allopurinol 300 mg tablet 300 mg PO EVERY OTHER DAY magnesium 250 mg Tablet 250 mg PO DAILY lisinopril 40 mg tablet 40 mg PO DAILY prazosin 2 mg capsule 2 mg PO HS Men's One Daily 1 tablet PO DAILY Vitamin B-12 500 mg PO DAILY potassium capsule 99 mg PO DAILY sulfamethoxazole-trimethoprim [Bactrim DS] 800-160 mg tablet 1 tablet PO BID 10 Days Qty: 20 0RF Follow-up/Referrals: UNKNOWN,DOCTOR [Non-Staff] Time of Disposition: 18:02
--- OUTSIDE RECORDS SUMMARY | 2025-03-16 17:54 | XMS_ITS | Encounter Summary ---
Author Organization [facility] Address [facility] [place] [address] Care Team Providers Care Lead Installer Name Role Phone Martell Newberry MD Unavailable [phone] Jakub Woodard DO Primary Care Provider [phone] Isela Falcon TOWEL STRETCHER Unavailable Vikki Gusman MD Unavailable None, Provider MD Primary Care Provider Unavaila Mary Venegas Primary Care Provide r Rosie Curry DO Unavailable [phone] Encounter Details Date Type Department Care Team (Late st Contact Info) Description 06/28/2021 Hospital Follow-up Call [facility] Unit [address] [place] [address] Miri Chaudhary RN Social History Tobacco Use Types Packs/Day Years Used Date Smoking Tobacco: Every Day Cigarettes 0.5 30 Smokeless Tobacco: Never Alcohol Use Standard Drinks/Week Comments Yes 0 (1 standard drink = 0.6 oz pur e alcohol) rarely Sex and Gender Information Value Date Recorded Sex Assigned at Male 07/25/2024 12:12 AM TRANSITION LEAD Legal Sex Male 5:43 PM CDT Gender Identity Not on file Sexual Orientation Not on file COVID-19 Exposure Response Date Recorded In the last month, have you been in contact with someone who was confirmed or suspected to have Coronavirus / COVID-19? No / Unsure 06/26/2021 11:52 AM TRANSITION LEAD documented as of this encounter Functional Status * RETIRED Are you deaf or do you have serious difficulty hearing Answer Date of Assessment Author Status Yes 06/26/2021 11:57 AM TRANSITION LEAD Acti ve * RETIRED Are you blind or do you have serious difficulty seeing, even when wearing glasses? Answer Date of Assessment Author Status No 06/26/2021 11:57 AM TRANSITION LEAD Acti ve * Do you have serious [...] Care Team (Late st Contact Info) Description 04/14/2025 2:15 PM TRANSITION LEAD Office Visit [facility] [address] [place] [address] Olayinka Blanco, DPM [address] [place] [phone] 04/22/2025 2:15 AM TRANSITION LEAD Allied Health/Nurse Visit [facility] [address] [place] [address] Vikki Gusman MD [address] [place] [address] 09/09/2025 1:00 PM CDT Office Visit [facility] [address] [place] [phone] Vikki Gusman MD [address] [place] [address] Henry Torres PAAcostaC [address] [place] [address] 09/09/2025 1:00 PM CDT Allied Health/Nurse Visit [facility] [address] [place] [address] Vikki Gusman MD [address] [place] [address] documented as of this encounter Goals Goal Patient Goal Type Associated Problems Recent Progress Patient-Stated? Author Patient will return to prior living situation and remain independent in ADLs upon discharge from hospital General No Lorraine Parr RN documented as of this encounter Visit Diagnoses Not on filedocumented in this encounter Care Teams Lead Installer Relationship Specialty Start Date End [place] [address] PCP - General FAMILY PRACTICE 06/25/21 11/17/23 None, MD Zayra PCP - General UNKNOWN PHYSICIAN SPECIALTY 11/18/23 04/13/24 [place] [address] PCP - General NURSE PRACTITIONER 04/14/24 Martell Newberry MD Crystal Inspector INTERVENTIONAL CARDIOLOGY 10/19/19 01/26/25 [place] [address] NURSE PRACTITIONER 11/22/22 Vikki Gusman MD [address] [place] [address] Consulting Physician CLINICAL CARDIAC ELECTROPHYSIOLOGY 09/08/23 Rosie Curry DO [address] [facility] [address] [place] [address] Physician INTERVENTIONAL CARDIOLOGY 01/27/25 documented as of this encounter
--- OUTSIDE RECORDS SUMMARY | 2025-03-16 17:54 | XMS_ITS | Encounter Summary ---
Author Organization [facility] Address [facility] [place] [address] Care Team Providers Care Warp Clamper Name Role Phone Falcon, Isela Cummins NP Unavailable Vikki Gusman MD Unavailable Mary Bronson Primary Care Provide r Rosie Curry DO Unavailable [phone] Encounter Details Date Type Department Care Team (Late st Contact Info) Description 02/06/2025 Telephone [facility] [address] [place] [address] Emergency, Nurse, RN Social History Tobacco Use Types Packs/Day Years Used Date Smoking Tobacco: Every Day Cigarettes 0.5 31 Started: 04/2024 Smokeless Tobacco: Never Comments:Patient uses nicoti ne lozenges #4 Alcohol Use Standard Drinks/Week Comments Yes 0 (1 standard drink = 0.6 oz pur e alcohol) rarely [id number] Health Literacy Answer Date Recor ded How often do you need to hav e someone help you when you read instructions, pamphlets, or other written material from your doctor or pharmacy? Rarely 04/14/2024 [facility] Utilities Answer Date Recorded In [...] No 07/27/2024 Social Connection and Isolation Panel Answer Date Recorded In a typical week, how many times do you talk on the phone with family, friends, or neighbors? Three times a week 04/14/20 How often do you get togethe r with friends or relatives? Twice a week 04/14/2024 How often do you attend chur ch or anabaptist services? 1 to 4 times per year 04/14/2024 Do you belong to any clubs o r organizations such as yazdanism groups, unions, fraternal or athletic groups, or [...] and heating? Not hard at all 07/27/2024 [facility] [place] [facility] Occupat ional Health - Occupational Stress [...] place to sleep or slept in a intermediate (including now)? No 05/14/2023 Housing Stability Vital Sign Answer Eugene e Recorded In the last 12 months, was t here a time when you were not able to pay the mortgage or rent on time? No 07/27/2024 In the past 12 months, how m any times have you moved where you were living? 0 07/27/2024 At any time in the past 12 m [facility], were you homeless or living in a intermediate (including now)? No 07/27/2024 Sex and Gender Information Value Date Recorded Sex Assigned at Male 07/25/2024 12:12 AM BILLET EXAMINER Legal Sex Male 5:43 PM CDT Gender [...] documented in this encounter Progress Notes * Nevin Lisa RN - 02/06/2025 1:52 PM CDT At Apprx 1130AM Pt calls requesting that RX be called to [facility] since pt Pharmacy is closed today. [facility] calls RX for Bentyl to [place], [place]. documented in this encounter Plan of Treatment Upcoming Encounters Date Type Department Care Team (Late st Contact Info) Description 04/14/2025 2:15 PM BILLET EXAMINER Office Visit [facility] [address] [place], [place] [phone] Oalyinka Blanco, DPM [address] [place] [phone] 04/22/2025 2:15 AM BILLET EXAMINER Allied Health/Nurse Visit [facility] [address] [place] [phone] Vikki Gusman MD [address] [place] [phone] 09/09/2025 1:00 PM CDT Office Visit [facility] [address] [place] [phone] Vikki Gusman MD [address] [place] [address] Henry Torres, PA-C [address] [place] [address] 09/09/2025 1:00 PM CDT Allied Health/Nurse Visit [facility] [address] [place] [address] Vikki Gusman MD [address] [place] [address] documented as of this encounter Goals Goal Patient Goal Type Associated Problems Recent Progress Patient-Stated? Author Patient will return to prior living situation and remain independent in ADLs upon discharge from hospital General No Lorraine Parr RN documented as of this encounter Visit Diagnoses Not on filedocumented in this encounter Care Teams Warp Clamper Relationship Specialty Start Date End Date [place] [address] PCP - General NURSE PRACTITIONER 04/14/24 Isela Falcon NP NURSE PRACTITIONER 11/22/22 Vikki Gusman MD [address] [place] [address] Consulting Physician CLINICAL CARDIAC ELECTROPHYSIOLOGY 09/08/23 Rosie Curry DO [address] [facility] [address] [place], [place] [address] Physician INTERVENTIONAL CARDIOLOGY 01/27/25 documented as of this encounter
--- OUTSIDE RECORDS SUMMARY | 2025-03-16 17:54 | XMS_ITS | Clinical Summary ---
Author Organization [facility] Address [address] [place] [address] Care Team Providers Care Acquisition Consultant Name Role Phone Falcon, Isela Cummins NP Unavailable Vikki Gusman MD Unavailable Mary Bronson Primary Care Provide r Rosie Curry DO Unavailable [phone] Allergies Active Allergy Reactions Criticality Noted Date [...] times daily. 60 tablet 3 5 Active triamcinolone (KENALOG) 0.1 % ointmentIndica tions:Eczema of lower extremity Apply topically 2 (two) times daily. 30 g 1 5 Active dicyclomine (BENTYL) 10 MG capsule Take 1 capsule (10 mg total) by mouth 4 (four) times daily before meals and nightly. 240 capsule 5 Active DULoxetine (CYMBALTA) 30 MG capsuleIndicat ions:Neuritis of right sural nerve,Neuropat hy of right peroneal nerve Take 1 capsule (30 mg total) by mouth daily. First week take 30 mg once per day, second week and beyond take 60 mg once per day. 60 capsule 5 Active pregabalin (LYRICA) 50 MG capsuleIndicat ions:Tarsal tunnel syndrome of right side,Idiopathi c neuropathy Take 1 capsule (50 mg total) by mouth 3 (three) times daily. 90 capsule 1 5 03/10/20 25 Discontinu ed(Side effects) Active Problems Problem Noted Date Diagnosed Date Hypertensive emergency 07/25/2024 TIA (transient ischemic attack) 05/04/2024 Acute CVA (cerebrovascular accident) 04/14/2024 Implantable loop recorder present 12/11/2023 Transient neurological symptoms 07/24/2023 Syncope 07/24/2023 Hypertensive urgency 05/13/2023 Fall 01/05/2023 CAD (coronary artery disease) 12/16/2022 Lumbar strain 05/28/2022 Abnormal cardiovascular stress test 10/20/2019 Hyperlipidemia 10/20/2019 Hypertension 10/20/2019 Tobacco abuse 10/20/2019 Encounters Date Type Department Care Team Description 03/10/2025 10:45 AM CDT Office Visit [facility] [address] [place] [address] Olayinka Blanco DPM EMG Results; Foot Pain 03/10/2025 Travel 03/07/2025 Telephone [facility] [address] [place] [address] Olayinka Blanco DPM Referral (Called Dr Perez's Office and requested EMGNCV results from last month. They did not see the results so they sent a note back to the nurse for it to be sent urgently as the patient is calling for the results and is very angry ) 02/17/2025 Scan [facility] [place] [facility] [address] [place] [address] Scanned, Doc Foot & Ankle Dc 02/11/2025 5:39 PM CDT - 02/12/2025 1:15 AM CDT [facility] [address] [place] [address] [place] [address] Sandee Lema MD Decreased Level Of Consciousness Discharge Disposition: Home or Self Care (Routine Discharge) 02/11/2025 Travel 02/06/2025 [facility]phone [facility] [address] [place], [place] [address] [address] Emergency, Nurse, RN 02/05/2025 7:16 PM CDT - 02/05/2025 8:56 PM CDT [facility] [place] [address] Mariusz Piedra MD Abdominal Pain Discharge Disposition: Home or Self Care (Routine Discharge) 02/05/2025 Travel 02/04/2025 Telephone [facility] [address] [place] [address] Vikki Gusman MD Reschedule 02/04/2025 Telephone [facility] [address] [phone] Rosie Curry DO Called To Cancel Office Appt. 01/27/2025 Telephone [facility] [address] [phone] Rosie Curry DO Appointment Request (Recall due) 01/18/2025 Telephone [facility] [address] [place] [address] Olayinka Blanco, DPM Information 01/17/2025 Orders Only [facility] [address] [place] [address] Olayinka Blanco, DPM 01/13/2025 10:15 AM CDT Office Visit [facility] of [address] [address] Olayinka Blanco, DPM Foot Injury; Numbness 01/13/2025 3:00 AM CDT Allied Health/Nurse Visit [facility] [address] [phone] Vikki Gusman MD 01/13/2025 Telephone [facility] [address] [place] [address] Olayinka Blanco, DPM Referral 01/13/2025 Travel 12/20/2024 Telephone [facility] [address] [place] [address] Vikki Gusman MD Reschedule 12/17/2024 Telephone [facility] [address] [place] [address] Vikki Gusman MD Appointment Reminder from Last 3 Months Family History Medical History Relation Comments COPD Father Stroke Father Heart Attack Mother Heart Disease Mother Hypertension Mother Stroke Paternal Grandfather Relation Status Comments Father Maternal Grandfather Maternal Grandmother Mother Paternal Grandfather Paternal Grandmother Social History Tobacco Use Types Packs/Day Years Used Date Smoking Tobacco: Every Day Cigarettes 0.5 31 Started: 04/2024 Smokeless Tobacco: Never Tobacco Cessation:Ready [...] from your doctor or pharmacy? Rarely 04/14/2024 [facility] Utilities Answer Date Recorded In the past 12 months has e [employer], gas, oil, or water [employer] threatened to shut off services in your [...] often do you attend chur ch or quaker services? 1 to 4 times per year 04/14/2024 Do you belong to any clubs o r organizations such as rastafari groups, unions, fraternal or athletic groups, or [...] and heating? Not hard at all 07/27/2024 [facility] - [...] place to sleep or slept in a care home (including now)? No 05/14/2023 Housing Stability Vital Sign Answer Eugene e Recorded In the last 12 months, was t here a time when you were not able to pay the mortgage or rent on time? No 07/27/2024 In the past 12 months, how m any times have you moved where you were living? 0 07/27/2024 At any time in the past 12 m [facility], were you homeless or living in a care home (including now)? No 07/27/2024 Sex and Gender Information Value Date Recorded Sex Assigned at Male 07/25/2024 12:12 AM HAIR SAMPLE MATCHER Legal Sex Male 5:43 PM CDT Gender Identity Not on file Sexual Orientation Not on file Last Filed Vital Signs Vital Sign Reading Time Taken Comments Blood Pressure 149/98 02/11/2025 9:00 PM CDT Pulse 58 02/11/2025 9:00 PM CDT Temperature 37.1 C (98.8 F) 02/11/2025 5:41 PM CDT Respiratory Rate 9 02/11/2025 7:30 PM CDT Oxygen Saturation 97% 02/11/2025 9:00 PM CDT Inhaled Oxygen Concentration - - Weight 106.1 kg (234 lb) 02/11/2025 5:41 PM CDT Height 193 cm (6' 4) 02/11/2025 5:41 PM CDT Body Mass Index 28.48 02/11/2025 5:41 PM CDT Plan of Treatment Upcoming Encounters Date Type Department Care Team (Late st Contact Info) Description 04/14/2025 2:15 PM HAIR SAMPLE MATCHER Office Visit [facility] [address] [place] [address] Olayinka Blanco, DPM [address] [place] [phone] 04/22/2025 2:15 AM HAIR SAMPLE MATCHER Allied Health/Nurse Visit [facility] [address] [place] [phone] Vikki Gusman MD [address] [place] [phone] 09/09/2025 1:00 PM CDT Office Visit [facility] [address] [place] [phone] Vikki Gusman MD [address] [place] [address] Henry Torres PA-C [address] [place] [address] 09/09/2025 1:00 PM CDT Allied Health/Nurse Visit [facility] [address] [place] [address] Vikki Gusman MD [address] [place] [address] Health Maintenance Due Date Last Done Comments ASCVD Statin 1955 Colorectal Cancer Screening Colonoscopy (10 Years) 1955 Hepatitis C 1974 Zoster Vaccines (1 of 2) 2006 RSV Immunization or 60+ Years (1 - Risk 60-74 years 1-dose series) 2016 Annual Medicare Wellness Visit 2021 COVID-19 Vaccine ( - 2024- season) 2025 03/01/2022, 10/11/2020, 09/20/2020 Influenza Adult (#1) 2025 04/26/2024, 03/16/2019, 04/09/2018 DTaP, Tdap and Td Vaccines (2 - Td or Tdap) 03/08/2034 03/08/2024 Pneumococcal Vaccine: 50+ Years Completed 09/23/2023 AAA SCREENING Completed 02/11/2025, 090 10/2024, 05/13/2023, Additional history exists Hepatitis A Vaccines Aged Out No long er eligible based on patient's age to complete this topic Meningococcal B Vaccine Aged Out No l [...] Parr RN Medical Devices Implanted Type Area Basin Cleaner Device Identifier Shelf Expiration Date Model / Serial / Lot [employer] Lux-Dx- 4 Implanted:04/0 10/2023 by Vikki Gusman MD (Quantity not on file) Implantable Loop Recorder [employer] ARISTIDES 01/22/2025 [id number] / [id number] / Description:DX: Syncope Patch Archana. Vasc. Vascu-Guard 0.8cm X 8cm - [id number] Implanted:Qty: 1 on 05/04/2024 by Mukund Hernadez MD at [facility] Mesh Shyp ARISTIDES - BIOSCIENCE [id number] 09/14/2025 [id number] / / [id number] Agent Hemostatic Surgiflo 8 Ml Kit - [id number] Implanted:Qty: 1 on 05/04/2024 by Mukund Hernadez MD at [facility] Sealant Left: Neck [employer] 03/01/2025 [id number] / / [id number] Explanted Type Area Basin Cleaner Device Identifier Shelf Expiration Date Model / Serial / Lot Kit Shunt [place] Carotid Artery Straight - [id number] Explanted:Qty: 1 on 05/04/2024 by Mukund Hernadez MD at [facility] Shunt [employer] [id number] / / Procedures Procedure Name Priority Date/Time Associated Diagnosis Comments CARBON MONOXIDE, QNT STAT 02/11/2025 9:32 PM CDT DRUG SCREEN RAPID STAT 02/11/2025 9:1 5 PM CDT HC URINALYSIS AUTO W/MICRO STAT 02/11/2025 9:15 PM CDT ECG 12-LEAD STAT 02/11/2025 6:48 PM CDT XR CHEST PORTABLE STAT 02/11/2025 6:[address] HEAD WO CON STAT 02/11/2025 6:[address] ABD+PEL W CON STAT 02/11/2025 6:36 PM CDT SALICYLATE STAT 02/11/2025 5:53 PM CDT THYROID STIM HORMONE TSH STAT 02/11/2025 5:53 PM CDT ACETAMINOPHEN STAT 02/11/2025 5:53 PM CDT ETHANOL STAT 02/11/2025 5:53 PM CDT COMPREHENSIVE METABOLIC PANEL STAT 02/11/2025 5:53 PM CDT CBC W/DIFF AUTOMATED STAT 02/11/2025 5:53 PM CDT ECG 12-LEAD STAT 02/11/2025 5:36 PM CDT ECG 12-LEAD STAT 02/05/2025 8:[address] ABD+PEL W CON STAT 02/05/2025 8:01 PM CDT TROPONIN, QUANT STAT 02/05/2025 7:51 PM CDT LIPASE STAT 02/05/2025 7:51 PM CDT COMPREHENSIVE METABOLIC PANEL STAT 02/05/2025 7:51 PM CDT CBC W/DIFF AUTOMATED STAT 02/05/2025 7:51 PM CDT from Last 3 Months Results * CARBON MONOXIDE, QNT (02/11/2025 9:32 PM CDT) CARBON MONOXIDE NOT CALCULATED % 02/11/2025 9:53 PM CDT [facility] Comment: Nonsmoker <3.0% Smoker <10.0% 02/11/2025 9:32 PM CDT Jarrod Mansfield DO LABORATORY Final Result [facility] [address] [place] [address], * DRUG SCREEN RAPID (02/11/2025 9:15 PM CDT) CANNABINOIDS SCREEN (U) NEGATIVE NEGATIVE 02/11/2025 10:14 PM CDT [facility] PHENCYCLIDINE PCP (U) NEGATIVE NEGATIVE 02/11/2025 10:14 PM CDT [facility] COCAINE METABOLITES (U) NEGATIVE NEGATIVE 02/11/2025 10:14 PM CDT [facility] METHAMPHETAMINE SCREEN (U) NEGATIVE NEGATIVE 02/11/2025 10:14 PM CDT [facility] OPIATE SCREEN (U) NEGATIVE NEGATIVE 025 10:14 PM CDT [facility] AMPHETAMINE SCREEN (U) NEGATIVE NEGATIVE 02/11/2025 10:14 PM CDT [facility] BENZODIAZEPINES SCREEN (U) NEGATIVE NEGATIVE 02/11/2025 10:14 PM CDT [facility] TRICYCLIC ANTIDEPRESSANT SCREEN (U) NEGATIVE NEGATIVE 02/11/2025 10:14 PM CDT [facility] METHADONE (U) NEGATIVE NEGATIVE 02/11/2025 10:14 PM CDT [facility] BARBITURATES SCREEN (U) NEGATIVE NEGATIVE 02/11/2025 10:14 PM CDT [facility] OXYCODONE SCREEN (U) NEGATIVE NEGATIVE 02/11/2025 10:14 PM CDT [facility] URINE TOX COMMENT THIS TEST METHODOLOGY IS DESIGNED AND OFFERED A RAPID TURNAROUND, QUALITATIVE SCREENING PROCEDURE TO AID IN THE IMMEDIATE MEDICAL ASSESSMENT OF PATIENTS SUSPECTED OF SUBSTANCE ABUSE. 02/11/2025 9:31 PM CDT [facility] Comment: CLINICAL CONSIDERATION AND PROFESSIONAL JUDGMENT MUST BE APPLIED TO ANY DRUG OF ABUSE TEST RESULT, BOTH POSITIVE AND NEGATIVE. CONFIRMATORY QUANTITATIVE RESULTS ARE AVAILABLE THROUGH OUR REFERENCE LABORATORY. URINE SPECIMEN / Unknown 02/11/2025 9:15 PM CDT us Sandee Lema MD URINE ORDERABLES Final Resu lt [facility] [address] [place] [address], * (ABNORMAL) URINALYSIS (02/11/2025 9:15 PM CDT) COLOR (U) YELLOW 02/11/2025 10:07 PM CDT [facility] TRANSPARENCY CLEAR 02/11/2025 10:07 PM CDT [facility] SPECIFIC GRAVITY (U) 1.020 1.000 - 1.025 02/11/2025 10:07 PM CDT [facility] U PH 6.5 5.0 - 8.0 02/11/2025 10:07 PM CDT [facility] LEUKOCYTES (U) NEGATIVE NEGATIVE 02/11/2025 10:07 PM CDT [facility] NITRITES NEGATIVE NEGATIVE 02/11/2025 10:07 PM CDT [facility] PROTEIN RANDOM (U) 1+(A) NEGATIVE 02/11/2025 10:07 PM CDT [facility] GLUCOSE (U) NEGATIVE NEGATIVE 02/11/2025 10:07 PM CDT [facility] KETONES MG/DL (U) TRACE(A) NEGATIVE 02/11/2025 10:07 PM CDT [facility] UROBILINOGEN 0.2 <1.0 EU/DL 02/11/2025 10:07 PM CDT [facility] BILIRUBIN (U) NEGATIVE NEGATIVE 02/11/2025 10:07 PM CDT [facility] BLOOD (U) NEGATIVE NEGATIVE 02/11/2025 10:07 PM CDT [facility] WBC/HPF 0-5 0 - 5 /HPF 02/11/2025 10:07 PM CDT [facility] RBC/HPF 0-5 0 - 5 /HPF 02/11/2025 10:07 PM CDT [facility] EPI/LPF FEW /LPF 02/11/2025 10:07 PM CDT [facility] URINE SPECIMEN OBTAINED BY CLEAN CATCH PROCEDURE / Unknown 02/11/2025 9:15 PM CDT us Sandee Lema MD URINE ORDERABLES Final Resu lt [facility] [place] [address], * ECG 12 lead (02/11/2025 6:48 PM CDT) Only the most recent of3 resultswithin the time period is included. 02/11/2025 6:48 PM CDT Narrative [facility] - 02/12/2025 6:21 AM CDT [address] [place] [address] Test Date: 2025-02-11 Pat Name: MAYNOR MONSALVE Department: 3 Room: EXAM 808 Gender: Male Cms Expert: : 1955 Requested By: SANDEE LEMA Order Number: [id number] Reading MD: Kayleen Riggs Measurements Intervals [place] Rate: 55 P: 61 CO: 202 QRS: 68 QRSD: 93 T: 73 QT: 413 QTc: 398 Interpretive Statements SINUS BRADYCARDIA EARLY REPOLARIZATION Procedure Note Kayleen Riggs MD - 02/12/[address] [place] [address] Test Date: 2025-02-11 Pat Name: MAYNRO MONSALVE Department: 3 Room: EXAM 808 Gender: Male Cms Expert: : 1955 Requested By: SANDEE LEMA Order Number: [id number] Reading MD: Kayleen Riggs Measurements Intervals [place] Rate: 55 P: 61 CO: 202 QRS: 68 QRSD: 93 T: 73 QT: 413 QTc: 398 Interpretive Statements SINUS BRADYCARDIA EARLY REPOLARIZATION us Sandee Lema MD ECG ORDERABLES Final Resul t [facility] * XR CHEST PORTABLE (02/11/2025 6:37 PM CDT) Anatomical Region Laterality Modality Chest Radiographic Kathryn ging 02/11/2025 7:10 PM CDT Impressions 02/11/2025 7:11 PM CDT IMPRESSION: 1. Mild pulmonary vascular congestion. 2. No focal consolidation or pneumothorax. Ordered By: SANDEE LEMA Interpreted By: Yanet Hernandez MD, 02/11/2025 7:10 PM Narrative 02/11/2025 7:11 PM [address]T [address] [place] [address] PROCEDURE: XR CHEST PORTABLE. 02/11/2025 6:37 PM. TECHNIQUE: A single view of the chest (AP or PA) was performed. HISTORY: Aspiration COMPARISON: AP chest radiograph, 04/14/2024. FINDINGS: Support Devices: Stable position of the cardiac loop recorder. Cardiac Silhouette/Mediastinum/Corrina: The cardiac, mediastinal, and hilar contours are unchanged in appearance. Lungs/Pleural Spaces: No focal consolidation. Mild central pulmonary vascular congestion. The pleural spaces are clear. Chest Wall/Diaphragm/Upper Abdomen: The thoracic musculoskeletal structures and the upper abdomen are unchanged in appearance. Procedure Note Yanet Hernandez MD - 02/11/[address] [place] [address] PROCEDURE: XR CHEST PORTABLE. 02/11/2025 6:37 PM. TECHNIQUE: A single view of the chest (AP or PA) was performed. HISTORY: Aspiration COMPARISON: AP chest radiograph, 04/14/2024. FINDINGS: Support Devices: Stable position of the cardiac loop recorder. Cardiac Silhouette/Mediastinum/Corrina: The cardiac, mediastinal, and hilarcontours are unchanged in appearance. Lungs/Pleural Spaces: No focal consolidation. Mild central pulmonaryvascular congestion. The pleural spaces are clear. Chest Wall/Diaphragm/Upper Abdomen: The thoracic musculoskeletalstructures and the upper abdomen are unchanged in appearance. IMPRESSION: 1. Mild pulmonary vascular congestion. 2. No focal consolidation or pneumothorax. Ordered By: SANDEE LEMA Interpreted By: Yanet Hernandez MD, 02/11/2025 7:10 PM us Sandee Lema MD GENERAL IMAGING Final Resul t * CT HEAD WO CON (02/11/2025 6:36 PM CDT) Anatomical Region Laterality Modality Head Computed Tomogra phy 02/11/2025 7:21 PM CDT Impressions 02/11/2025 7:27 PM CDT IMPRESSION: NO ACUTE INTRACRANIAL ABNORMALITY. Referred By: Interpreted By: Neto Conn MD, 02/11/2025 7:21 PM Narrative 02/11/2025 7:27 PM CDT [address] [place] [address] CT OF THE BRAIN WITHOUT CONTRAST INDICATION: Altered mental status. TECHNIQUE: CT of the brain was performed without contrast. A dose lowering technique was used for this procedure, which may include, but is not limited to, dose reduction techniques, automated exposure control, the use of a iterative reconstruction, and ALARA (as low as reasonably achievable)/image gently techniques. . COMPARISON: Noncontrast CT brain from 07/24/2024. FINDINGS: No evidence of an acute ischemic infarct or intracranial hemorrhage. There are no extra-axial fluid collections or midline shift. The ventricles and sulci are normal in configuration. The visualized orbits are unremarkable. The paranasal air sinuses are unremarkable. The osseous structures are unremarkable. Procedure Note Neto Conn MD - 02/11/[address] [place] [address] CT OF THE BRAIN WITHOUT CONTRAST INDICATION: Altered mental status. TECHNIQUE: CT of the brain was performed without contrast. A doselowering technique was used for this procedure, which may include, but isnot limited to, dose reduction techniques, automated exposure control, theuse of a iterative reconstruction, and ALARA (as low as reasonablyachievable)/image gently techniques. . COMPARISON: Noncontrast CT brain from 07/24/2024. FINDINGS: No evidence of an acute ischemic infarct or intracranial hemorrhage.There are no extra-axial fluid collections or midline shift. Theventricles and sulci are normal in configuration. The visualized orbits are unremarkable. The paranasal air sinuses areunremarkable. The osseous structures are unremarkable. IMPRESSION: NO ACUTE INTRACRANIAL ABNORMALITY. Referred By: Interpreted By: Neto Conn MD, 02/11/2025 7:21 PM us Sandee Lema MD CT Final Resul t * CT ABD+PEL W CON (02/11/2025 6:36 PM CDT) Only the most recent of2 resultswithin the time period is included. Anatomical Region Laterality Modality Abdomen Computed Tomogra phy 02/11/2025 7:19 PM CDT Impressions 02/11/2025 7:23 PM CDT IMPRESSION: 1. No CT evidence of bowel obstruction or acute appendicitis. 2. Moderate fecal burden within the colon, which can be seen with constipation. 3. Scattered colonic diverticulosis without evidence of acute inflammation. Ordered By: SANDEE LEMA Interpreted By: Yanet Hernandez MD, 02/11/2025 7:19 PM Narrative 02/11/2025 7:23 PM CDT [place] [address] [facility] [place] [address] PROCEDURE: CT ABD+PEL W CON HISTORY: Abdominal pain. TECHNIQUE: Helical CT of the abdomen and pelvis was performed using non-ionic intravenous contrast: (Isovue-370, 95 mL). No oral contrast was administered per A dose lowering technique was used for this procedure, which may include, but is not limited to, dose reduction technique, automated exposure control, the use of iterative reconstruction, and ALARA (As Low As Reasonably Achievable) / Image Gently techniques. COMPARISON: PA and pelvis with contrast, 02/05/[address] ABDOMEN/PELVIS: Lower thorax: There is subsegmental atelectasis in the lower lobes. The heart is normal in size. Liver: The liver is normal in size. There is no intrahepatic mass. Biliary tree: The gallbladder is present. There is no biliary ductal dilatation. Spleen: The spleen is normal in size. Pancreas: The pancreas is normal in size and enhances homogenously. Adrenal glands: The adrenal glands are normal in size and shape. Kidneys: There are bilateral symmetric nephrograms without hydronephrosis. Lymph nodes: Abdomen: There is no abdominal adenopathy. Pelvis: There is no pelvic adenopathy. Vasculature: There is no abdominal aortic aneurysm. Atherosclerotic calcification is seen. Peritoneum/mesentery/omentum: There is no free fluid or free air. GI tract: There is no bowel obstruction. Moderate fecal burden is seen within the colon. The appendix normal. There is no abnormal bowel wall thickening to suggest acute inflammation. Scattered colonic diverticulosis without evidence of acute inflammation. Pelvic urogenital structures:The bladder is grossly unremarkable. The prostate is present. Body wall: There are degenerative changes in the spine. No aggressive osseous lesions identified. Freeman: (S/I) = series number / image number Procedure Note Yanet Hernandez MD - 02/11/[address] [place] [address] PROCEDURE: CT ABD+PEL W CON HISTORY: Abdominal pain. TECHNIQUE: Helical CT of the abdomen and pelvis was performed usingnon-ionic intravenous contrast: (Isovue-370, 95 mL). No oral contrast wasadministered per A dose lowering technique was used for this procedure, which may include,but is not limited to, dose reduction technique, automated exposurecontrol, the use of iterative reconstruction, and ALARA (As Low AsReasonably Achievable) / Image Gently techniques. COMPARISON: PA and pelvis with contrast, 02/05/[address] ABDOMEN/PELVIS: Lower thorax: There is subsegmental atelectasis in the lower lobes. Theheart is normal in size. Liver: The liver is normal in size. There is no intrahepatic mass. Biliary tree: The gallbladder is present. There is no biliary ductaldilatation. Spleen: The spleen is normal in size. Pancreas: The pancreas is normal in size and enhances homogenously. Adrenal glands: The adrenal glands are normal in size and shape. Kidneys: There are bilateral symmetric nephrograms withouthydronephrosis. Lymph nodes: Abdomen: There is no abdominal adenopathy. Pelvis: There is no pelvic adenopathy. Vasculature: There is no abdominal aortic aneurysm. Atheroscleroticcalcification is seen. Peritoneum/mesentery/omentum: There is no free fluid or free air. GI tract: There is no bowel obstruction. Moderate fecal burden is seenwithin the colon. The appendix normal. There is no abnormal bowel wallthickening to suggest acute inflammation. Scattered colonic diverticulosiswithout evidence of acute inflammation. Pelvic urogenital structures:The bladder is grossly unremarkable. Theprostate is present. Body wall: There are degenerative changes in the spine. No aggressiveosseous lesions identified. Freeman: (S/I) = series number / image number IMPRESSION: 1. No CT evidence of bowel obstruction or acute appendicitis. 2. Moderate fecal burden within the colon, which can be seen withconstipation. 3. Scattered colonic diverticulosis without evidence of acuteinflammation. Ordered By: SANDEE LEMA Interpreted By: Yanet Hernandez MD, 02/11/2025 7:19 PM Sandee Lema MD CT Final Resul t * (ABNORMAL) COMPREHENSIVE METABOLIC PANEL (02/11/2025 5:53 PM CDT) Only the most recent of2 resultswithin the time period is included. SODIUM S/P/B 139 136 - 145 MMOL/L 02/11/2025 6:25 PM CDT [facility] POTASSIUM S/P/B 4.1 3.5 - 5.1 MMOL/L 02/11/2025 6:25 PM CDT [facility] CHLORIDE S/P/B 104 98 - 107 MMOL/L 02/11/2025 6:25 PM CDT [facility] CO2 29.3 21.0 - 32.0 MMOL/L 02/11/2025 6:25 PM T [facility] GLUCOSE 112(H) 70 - 99 MG/DL 02/11/2025 6:25 PM [facility] Comment: FASTING GLUCOSE 100 TO 125 MG/DL IS CONSISTENT WITH IMPAIRED FASTING GLUCOSE. FASTING GLUCOSE >125 MG/DL IS CONSISTENT WITH DIABETES. RANDOM GLUCOSE >200 MG/DL WITH HYPERGLYCEMIC SYMPTOMS IS CONSISTENT WITH DIABETES. PER ADA GUIDELINES BUN 20 6 - 24 MG/DL 02/11/2025 6:25 PM CDT [facility] CREATININE S/P/B 0.96 0.70 - 1.30 MG/DL 02/11/2025 6:25 PM T [facility] CALCIUM S/P/B 9.4 8.4 - 10.5 MG/DL 02/11/2025 6:25 PM CDT [facility] BILIRUBIN TOTAL S/P/B 0.4 0.2 - 1.0 MG/DL 02/11/2025 6:25 PM T [facility] Comment: THIS ASSAY IS NOT RECOMMENDED FOR PATIENTS UNDERGOING TREATMENT WITH ELTROMBOPAG DUE TO THE POTENTIAL FOR FALSELY ELEVATED RESULTS. ALKALINE PHOSPHATASE S/P/B 94 45 - 115 U/L 02/11/2025 6:25 PM T [facility] AST 17 15 - 37 U/L 02/11/2025 6:25 PM T [facility] ALT 33 16 - 63 U/L 02/11/2025 6:25 PM CDT [facility] TOTAL PROTEIN S/P/B 6.8 6.4 - 8.2 G/DL 02/11/2025 6:25 PM T [facility] ALBUMIN S/P/B 3.4 3.4 - 5.0 G/DL 02/11/2025 6:25 PM T [facility] ANION GAP 5.7 5.0 - 15.0 MMOL/L 02/11/2025 6:25 PM CDT [facility] OSMOLALITY (CALC) 291 MOSM/KG 025 6:25 PM CDT [facility] Comment:REFERENCE RANGE NOT ESTABLISHED GFR ESTIMATE 86(L) >89 ML/MIN/1. 73 M2 02/11/2025 6:25 PM CDT [facility] GFR NOTES GFR REFERENCE S: 02/11/2025 6:25 PM CDT [facility] Comment: THE ESTIMATED GFR IS [...] ml/min/1.73 m2 G5,KIDNEY FAILURE: <15 ml/min/1.73 m2 02/11/2025 5:53 PM CDT us Sandee Lema MD LABORATORY Final Resul t [facility] [place] [address], * (ABNORMAL) CBC W/DIFF AUTOMATED (02/11/2025 5:53 PM CDT) Only the most recent of2 resultswithin the time period is included. WBC 5.25 4.00 - 10.80 x10'3/uL 02/11/2025 5:58 PM CDT [facility] RBC 3.71(L) 4.50 - 6.10 x10'6/uL 02/11/2025 5:58 PM CDT [facility] HGB 11.8(L) 13.0 - 18.0 G/DL 02/11/2025 5:58 PM CDT [facility] HCT 34.9(L) 37.0 - 52.0 % 02/11/2025 5:58 PM CDT [facility] MCV 94.1 78.0 - 100.0 FL 02/11/2025 5:58 PM CDT [facility] MCH 31.8(H) 27.0 - 31.0 PG 02/11/2025 5:58 PM CDT [facility] MCHC 33.8 33.0 - 36.0 G/DL 02/11/2025 5:58 PM CDT [facility] RDW 11.9 11.5 - 14.5 % 02/11/2025 5:58 PM CDT [facility] PLT 157 150 - 350 x10'3/uL 02/11/2025 5:58 PM CDT [facility] MPV 9.5 7.4 - 10.4 FL 02/11/2025 5:58 PM CDT [facility] CBC COMMENT NORMAL REFERENCE RANGE NOT ESTABLISHED FOR THE PROPORTIONAL LEUKOCYTE DIFFERENTIAL. 02/11/2025 5:58 PM CDT [facility] NEUTROPHILS % 66.6 % 02/11/2025 5:58 PM CDT [facility] LYMPHOCYTES % 22.5 % 02/11/2025 5:58 PM CDT [facility] MONOCYTES % 8.8 % 02/11/2025 5:58 PM CDT [facility] EOSINOPHILS % 1.5 % 02/11/2025 5:58 PM CDT [facility] BASOPHILS % 0.4 % 02/11/2025 5:58 PM CDT [facility] IMMATURE GRANS % 0.2 % 02/12/20 5:58 PM CDT [facility] NRBC % 0.0 % 02/11/2025 5:58 PM CDT [facility] ABS. NEUTROPHILS 3.50 1.60 - 8.30 x10'3/uL 02/11/2025 5:58 PM CDT [facility] ABS. LYMPHOCYTES 1.18 0.80 - 4.70 x10'3/uL 02/11/2025 5:58 PM CDT [facility] ABS. MONOCYTES 0.46 0.00 - 1.50 x10'3/uL 02/11/2025 5:58 PM CDT [facility] ABS. EOSINOPHILS 0.08 0.00 - 0.40 x10'3/uL 02/11/2025 5:58 PM CDT [facility] ABS. BASOPHILS 0.02 0.00 - 0.20 x10'3/uL 02/11/2025 5:58 PM CDT [facility] ABS. IMMATURE GRANULOCYTES 0.01 0.00 - 0.03 x10'3/uL 02/11/2025 5:58 PM CDT [facility] ABS. NUCLEATED RBC'S 0.00 0.00 - 0.01 x10'3/uL 02/11/2025 5:58 PM CDT [facility] 02/11/2025 5:53 PM CDT us Sandee Lema MD LABORATORY Final Resul t Performing Organization Address City/[facility]/ZIP Co de Phone Number [facility] [address] [place] [address], [place] [phone] * THYROID STIM HORMONE, TSH (02/11/2025 5:53 PM CDT) Pathologist [facility] TSH 1.336 0.358 - 3.740 uIU/ML 02/11/2025 6:25 PM CDT [facility] Comment: ASSAY PERFORMED BY CHEMILUMINESCENT IMMUNOASSAY METHODOLOGY USING SIEMENS DIMENSION REAGENT. PATIENT RESULTS DETERMINED BY ASSAYS FROM DIFFERENT MANUFACTURERS AND/OR BY DIFFERENT METHODS MAY NOT BE COMPARABLE. 02/11/2025 5:53 PM CDT us Sandee Lema MD LABORATORY Final Resul t Performing Organization Address City/[facility]/ZIP Co de Phone Number [facility] [address] [place] [address], [place] [phone] * (ABNORMAL) SALICYLATE (02/11/2025 5:53 PM CDT) SALICYLATES 1.0(L) 2.8 - 20.0 MG/DL 02/11/2025 6:25 PM CDT [facility] 02/11/2025 5:53 PM CDT us Sandee Lema MD LABORATORY Final Resul t Performing Organization Address [facility] Co de Phone Number [facility] [address] [place] [address], * ETHANOL (02/11/2025 5:53 PM CDT) ALCOHOL S/P/B <0.003 <0.003 G/DL 02/11/2025 6:25 PM CDT [facility] 02/11/2025 5:53 PM CDT us Sandee Lema MD LABORATORY Final Resul t Performing Organization Address [facility] de Phone Number [facility] [address] [place] [address], [place] [phone] * (ABNORMAL) ACETAMINOPHEN (02/11/2025 5:53 PM CDT) ACETAMINOPHEN S/P/B 0.0(L) 10.0 - 30.0 MCG/ML 02/11/2025 6:25 PM CDT [facility] 02/11/2025 5:53 PM CDT us Sandee Lema MD LABORATORY Final Resul t Performing Organization Address [facility] de Phone Number [facility] [address] [place] [address], * TROPONIN, QUANT (02/05/2025 7:51 PM CDT) TROPONIN I HIGH SENSITIVITY 7 0 - 76 ng/L 02/05/2025 8:15 PM CDT [facility] 02/05/2025 7:51 PM CDT us Mariusz Piedra MD LABORATORY Final Result [facility] [address] [place] [address], [place] [phone] * LIPASE (02/05/2025 7:51 PM CDT) LIPASE 36 16 - 77 UNITS/L 02/05/2025 8:15 PM CDT [facility] 02/05/2025 7:51 PM CDT Mariusz Piedra MD LABORATORY Final Result Performing Organization Address [facility] de Phone Number [facility] [address] [place] [address], [place] [phone] from Last 3 Months Insurance MEDICAID MEDICARE [facility] MEDICARE Member Subscriber Plan / Payer (Ef fective 2025-Present) Name:Maynor Monsalve Relation to Subscriber:Self Name:Maynor Monsalve Payer ID:[id number] (NAIC) Type:Not on file Address: [place] [id number] MEDICAID MEDICARE Member Subscriber Plan / Payer (Ef fective 2025-Present) Name:Maynor Monsalve Relation to Subscriber:Self Name:Maynor Monsalve Payer ID:[id number] (NAIC) Type:Not on file Address: [place] [id number] MEDICAID Advance Directives * Full Code (Latest [...] 1:10 PM 06/27/2021 5:37 PM Care Teams Acquisition Consultant Relationship Specialty Start Date End Date Mary Bronson APNP [address] [place] [phone] PCP - General NURSE PRACTITIONER 04/14/24 Isela Falcon NP NURSE PRACTITIONER 11/22/22 Vikki Gusman MD [address] [place] [phone] Consulting Physician CLINICAL CARDIAC ELECTROPHYSIOLOGY 09/08/23 Rosie Curry DO [address] [facility] [address] [place], [place] [address] Physician INTERVENTIONAL CARDIOLOGY 01/27/25
--- OUTSIDE RECORDS SUMMARY | 2025-03-16 17:54 | XMS_ITS | Clinical Summary ---
Author Organization [facility] Address [address] [place] [address] Care Team Providers Care Stock Grader Name Role Phone Unavailable Primary Care Provider Unavailabl e Source Comments [facility],non-owned Affiliates and Associated Physician Practices is amultiple site organization consisting of ambulatory clinics and hospital sitesin [place], [place], [place] and [place]. This disclosure is being madepursuant to the Care Everywhere program and may not contain all information available regarding this patient. Last updated 18.[facility] Collect Allergies Active Allergy Reactions Criticality Noted Date [...] and heating? Not hard at all 01/06/2023 [facility] [place] of Occupat ional Health - Occupational Stress [...] place to sleep or slept in a long-term (including now)? No 01/06/2023 Sex and Gender [...] years 1-dose series) 2016 AAA SCREENING 2021 DEPRESSION SCREENING 06/02/2024 MEDICARE AWV CALENDAR YEAR 2024 COVID-19 VACCINE (1 - 2023-2 5 season) 2025 INFLUENZA VACCINE (#1) 2025 HEPATITIS B VACCINE [...]
--- OUTSIDE RECORDS SUMMARY | 2025-03-16 17:54 | XMS_ITS | Encounter Summary ---
Author Organization [facility] Address [facility] [place] [address] Care Team Providers Care Principal Clerk Typist Name Role Phone Martell Newberry MD Unavailable Jakub Woodard DO Primary Care Provider [phone] Isela Falcon SCALEHOUSE ATTENDANT Unavailable Vikki Gusman MD Unavailable None, Provider MD Primary Care Provider Unavaila Mary Venegas Primary Care Provide r Rosie Curry DO Unavailable [phone] Encounter Details Date Type Department Care Team (Late st Contact Info) Description 08/27/2023 Hospital Orders Only [employer] [facility] [address] [place] [address] Vikki Gusman MD [address] [place] [address] Social History Tobacco Use Types Packs/Day Years Used Date Smoking Tobacco: Every Day Cigarettes 0.5 30 Smokeless Tobacco: Never Alcohol Use Standard Drinks/Week Comments Yes 0 (1 standard drink = 0.6 oz pur e alcohol) rarely [facility] Utilities Answer Date Recorded In the past 12 months has th e electric, gas, oil, or water company [...] in a detention (including now)? No 05/14/2023 Sex and Gender Information Value Date Recorded Sex Assigned at Male 07/25/2024 12:12 AM TAILINGS WORKER Legal Sex Male 5:43 PM CDT [...] st Contact Info) Description 04/14/2025 2:15 PM TAILINGS WORKER Office [facility] [address] [place] [address] Olayinka Blanco, DPM [address] [place] [phone] 04/22/2025 2:15 AM TAILINGS WORKER Allied Health/Nurse Visit [facility] [address] [place] [address] Vikki Gusman MD [address] [place] [address] 09/09/2025 1:00 PM CDT Office Visit [facility] [address] [place] [address] Vikki Gusman MD [address] [place] [address] Henry Torres PA-C [address] [place] [address] 09/09/2025 1:00 PM CDT Allied Health/Nurse Visit [facility] [address] [place] [address] iVkki Gusman MD [address] [place] [address] documented as of this encounter Goals Goal Patient Goal Type Associated Problems Recent Progress Patient-Stated? Author Patient will return to prior living situation and remain independent in ADLs upon discharge from hospital General No Lorraine Parr RN documented as of this encounter Visit Diagnoses Not on filedocumented in this encounter Care Teams Principal Clerk Typist Relationship Specialty Start Date End [place] [address] PCP - General FAMILY PRACTICE 06/25/21 11/17/23 None, MD Zayra PCP - General UNKNOWN PHYSICIAN SPECIALTY 11/18/23 04/13/24 [place] [address] PCP - General NURSE PRACTITIONER 04/14/24 Martell Newberry MD Owner Operator INTERVENTIONAL CARDIOLOGY 10/19/19 01/26/25 [place] [address] NURSE PRACTITIONER 11/22/22 Vikki Gusman MD [address] [place] [address] Consulting Physician CLINICAL CARDIAC ELECTROPHYSIOLOGY 09/08/23 Rosie Curry DO [address] [facility] [address] [place] [address] Physician INTERVENTIONAL CARDIOLOGY 01/27/25 documented as of this encounter
--- OUTSIDE RECORDS SUMMARY | 2025-03-16 17:54 | XMS_ITS | Encounter Summary ---
Author Organization [facility] Address [facility] [place] [address] Care Team Providers Care Psychodramatist Name Role Phone Falcon, Isela Cummins NP Unavailable Vikki Gusman MD Unavailable Mary Bronson Primary Care Provide r Rosie Curry DO Unavailable [phone] Encounter Details Date Type Department Care Team (Late st Contact Info) Description 02/17/2025 [facility] [place] Business Office [address] [place] [phone] Scanned, [facility] Social History Tobacco Use Types Packs/Day Years [...] from your doctor or pharmacy? Rarely 04/14/2024 [facility] Utilities Answer Date Recorded In the [...] often do you attend chur ch or gnosticism services? 1 to 4 times per year 04/14/2024 Do you belong to any clubs o r organizations such as zoroastrianism groups, unions, fraternal or athletic groups, or [...] and heating? Not hard at all 07/27/2024 [facility] [place] of Occupat ional Health - Occupational Stress [...] the money to buy more. Never true 02/25/20 25 Within the past 12 months, t [...] place to sleep or slept in a fci (including now)? No 05/14/2023 Housing Stability Vital Sign Answer Eugene e Recorded In the last 12 months, was t here a time when you were not able to pay the mortgage or rent on time? No 07/27/2024 In the past 12 months, how m any times have you moved where you were living? 0 07/27/2024 At any time in the past 12 m [facility], were you homeless or living in a fci (including now)? No 07/27/2024 Sex and Gender Information Value Date Recorded Sex Assigned at Male 07/25/2024 12:12 AM SENIOR SALES COMPENSATION ANALYST Legal Sex Male 5:43 PM CDT [...] Assessment Author Status No 07/25/2024 10:51 AM SENIOR SALES COMPENSATION ANALYST Obinna Flores R N Active * Because of a [...] st Contact Info) Description 04/14/2025 2:15 PM SENIOR SALES COMPENSATION ANALYST Office [facility] [address] [place] [address] Olayinka Blanco, DPM [address] [place] [phone] 04/22/2025 2:15 AM SENIOR SALES COMPENSATION ANALYST Allied Health/Nurse Visit [facility] [address] [place] [address] Vikki Gusman MD [address] [place] [address] 09/09/2025 1:00 PM CDT Office Visit [facility] [address] [place] [address] Vikki Gusman MD [address] [place] [address] Henry Torres, PA-C [address] [place] [address] 09/09/2025 1:00 PM CDT Allied Health/Nurse Visit [facility] [address] [place] [address] Vikki Gusman MD [address] [place] [address] documented as of this encounter Goals Goal Patient Goal Type Associated Problems Recent Progress Patient-Stated? Author Patient will return to prior living situation and remain independent in ADLs upon discharge from [facility] No Lorraine Parr RN documented as of this encounter Visit Diagnoses Not on filedocumented in this encounter Care Teams Psychodramatist Relationship Specialty Start Date End Date Mary Bronson APNP [address] [place] [address] PCP - General NURSE PRACTITIONER 04/14/24 Isela Falcon NP NURSE PRACTITIONER 11/22/22 Vikki Gusman MD [address] [place] [address] Consulting Physician CLINICAL CARDIAC ELECTROPHYSIOLOGY 09/08/23 Rosie Curry DO [address] [facility] [address] [place], [place] [address] Physician INTERVENTIONAL CARDIOLOGY 01/27/25 documented as of this encounter
--- OUTSIDE RECORDS SUMMARY | 2025-03-16 17:59 | XMS_ITS | Data Portability ---
Author Organization [facility], [address] [place] [address] [place]rology ([place]) Address [address] [address] Assessment Encounter Date Assessment Date Assessment LastModified by Organization Details LastModified Time 07/07/2024 07/07/2024 patient is feeling well, recovered from recent L CEA, which followed a TIA from symptomatic L ICA stenosis in May 2024. has been on aspiirn. apt coming up with Dr. Hernadez. will return to see us as needed only. [email or web address] Not available 07/07/2024 14:55:32 Plan of Treatment Reminders Order Date Submit Date Provider Last Modified By Organization Details Last Modified Time Details Appointments None record ed. Lab None record ed. Referral None record ed. Procedures None record ed. Surgeries None record ed. Imaging None record ed. Medication Orders None record ed. Patient TargetsNo targets recorded. Patient InstructionsNo instructions recorded. Reason for Referral None Reported. Problems Name Problem SNOMED Code Status Onset Date Resolution Date Notes Provider Name and Address Organization Details Recorded Time Internal carotid artery stenosis 107020914 Active 2023 Lorraine Lomas [facility] 4 10:05:13 Left carotid artery stenosis 5741305584288 03 Active 2024 Al Martinez MD, [place] [address] [place] [address], [address], [facility] 5 14:53:18 Paresthesia of lower extremity 045471355 Active 2024 Betina Perez MD [address] [place], [address], [facility] 5 16:08:37 Problem Notes None recorded. Procedures Surgical History Date Name Laterality Status Provider Name and Address Organization Details Recorded Time 5 SC [facility] Procedure completed Betina Perez MD [address] [place] [address], [phone], [facility] 02/17/2025 16:10:40 Imaging Results None recorded. Procedure Notes None recorded. Medical Equipment None Reported. Allergies Allergen ID Allergen Name Allergen Category Reaction Reaction Severity Criticality Documentation Date Start Date Code Code System Note Provider Name and Address Organization Details Recorded Time 831264 buspirone hydrochlo ride medicatio n Not available Not available Not available 06/30/2023201511 6 RxNorm React ion: Other : DECRE ASED RESPI RATIO NS; Not Available [facility] 4 21:45:41 504516 terbinafi ne hydrochlo ride medicatio n swelling Not available Not available 06/30/20232015 18346 8 RxNorm React ion: Swell ing; Not Available [facility] 4 21:45:42 Medications Name Sig Start Date Stop Date Status Note LastModified by Organization Details LastModified Time acyclovir 800 mg tablet TAKE 1 TABLET BY MOUTH 4 TIMES DAILY 07/07 completed Not Available Not Available Not Available oxycodone-ac etaminophen 5 mg-325 mg tablet TAKE 1 TABLET BY MOUTH EVERY 6 HOURS NEEDED active Not Available Not Available No t Available dicyclomine 10 mg capsule TAKE ONE CAPSULE BY MOUTH THREE TIMES DAILY NEEDED active Not Available Not Available No t Available Vitals Date Recorded Body height Body mass index (BMI) Body weight Heart rate Oxygen saturation Oxygen saturation in Arterial blood by Pulse oximetry Systolic And Diastolic Provider Name and Address Organization Details Last Updated DateTime 5 193.04 cm 29.7 kg/m2 074220. 82 g 70 /min 97 % 97 % 148/88 mm[Hg] Caroline Tam [facility] 5 14:50:29 Social History None recorded. Functional Status None recorded. Mental Status None recorded. Family History Nothing Reported. Medical History No medical history recorded. Past Encounters Encounter ID Performer Location Encounter Start Date Encounter Closed Date Diagnosis/Indication Diagnosis SNOMED-CT Code Diagnosis ICD10 Code Diagnosis IMO Codes Diagnosis Note [id number] Al Martinez MD, MS [facility] ([place]) [address] [place] [address] 07/07/2024 14:34:10 07/07/2024 15:21:47 Left carotid artery stenosis 5711515951 13448 I65.22 [id number] History of carotid endarterectomy 085244148 Z98.890 [id number] Betina Perez MD [facility] ([place]) [address] [place] [address] 02/17/2025 15:16:05 02/18/2025 06:53:31 Paresthesia of lower extremity 058636360 R20.0 R20.2 907144 Health Concerns Section Related Observation LastModified by Organization Detai ls LastModified Time None Recorded Concern Status LastModified by Organization Details LastModified Time None Recorded Advance Directives Directive None Recorded Payers Insurance Date Sequence Insurance Name Policy Number Policy Durbin Covered Member ID Durbin Member ID Guarantor Name 12/03/2023 1 *SELF PAY* Te renard Ferguson 02/18/2025 1 [facility] (MEDICARE REPLACEMENT/A DVANTAGE - PPO) [id number] Austin Ferguson [id number] Austin Ferguson 02/12/2025 2 [place] Austin Ferguson [id number] Austin Ferguson 02/18/2025 3 [place] Austin Ferguson [id number] Austin Ferguson Notes Date Note Type Note Provider Name and Address Organization Details Recorded Time 07/07/2024 text/html patient here following a TIA, from L ICA high-grade steonsis.he received a CEA with Dr. Hernadez.he's been feeling great since then.he's on lipitor 10 LDL 37, and aspirin 81. Al Martinez MD, MS [address] [place], [address], [facility] 07/07/2024 14:55:50
== END 2025-03-16 18:10 | disposition home or self-care (01) ==
PROVIDERS: Emergency Provider Emergency Medicine
DX: B35.6 Tinea cruris (principal); I25.10 Atherosclerotic heart disease of native coronary artery without angina pectoris; Z86.73 Personal history of transient ischemic attack (TIA), and cerebral infarction without residual deficits; F17.200 Nicotine dependence, unspecified, uncomplicated
CPT/HCPCS: 99283